=== PATIENT | male | born 1980 | race Caucasian/White ===

== ENCOUNTER 2021-07-23 05:31 | Emergency (ER) | payer OTHER, MEDICAID, MEDICARE, SELFPAY ==
--- NOTE | ~2021-07-23 | XR_ITS ---
EXAMINATION: CHEST 2 VIEWS pain . COMPARISON: No recent pertinent prior studies are available for comparison. TECHNIQUE: PA and lateral views of the chest obtained. FINDINGS: The lungs are well expanded. No focal infiltrate, effusion, edema, or pneumothorax. Cardiac and mediastinal silhouettes are within normal limits for technique. No acute bony abnormality seen XR/XR chest 1V IMPRESSION: No evidence of acute disease
--- NOTE | ~2021-07-23 | CT_ITS ---
EXAMINATION: CT HEAD WITHOUT CONTRAST CLINICAL INFORMATION: Headache COMPARISON: None TECHNIQUE: Contiguous axial imaging was performed from the skull base to vertex without intravenous administration of contrast. This CT examination was performed using dose optimization techniques as appropriate, variously including the following: *Automated exposure control *Adjustment of mA and/or kV according to patient size (this includes techniques or standardized protocols for targeted exams where dose is matched to indication/reason for exam; i.e. extremities or head) *Use of iterative reconstruction technique DLP: 621 mGy-cm FINDINGS: There is no evidence of acute intracranial hemorrhage or territorial infarction. No abnormal mass effect or midline shift is seen. Calderon to white matter differentiation is well preserved. No extra-axial fluid collections are identified. The ventricles are normal in size. There is no abnormal attenuation within the brain parenchyma. The osseous structures and soft tissues are normal. The mastoid air cells and visualized portions of the paranasal sinuses are well aerated. CT/CT head/brain wo con IMPRESSION: No acute intracranial pathology.
[2021-07-23 05:39] VITALS: BP 147/93; PULSE 108; RESP 18; TEMP 36.8; O2SAT 98; BMI 30.1
--- NOTE | 2021-07-23 05:43 | ECG_ITS ---
Test Reason : CHEST TIGHTNESS Blood Pressure : / mmHG Vent. Rate : 103 BPM Atrial Rate : 103 BPM P-R Int : 140 ms QRS Dur : 078 ms QT Int : 324 ms P-R-T Axes : 028 -20 021 degrees QTc Int : 424 ms Sinus tachycardia Nonspecific T wave abnormality Abnormal ECG No previous ECGs available Referred By: Generic ED Physician Electronically Signed By:FUNMILAYO BATRES
[2021-07-23 06:08] VITALS: BP 144/96; PULSE 101; RESP 20; TEMP 37.1; O2SAT 96
[2021-07-23 06:19] LABS: COVID-19 Test Negative (Negative); IDNOW Serial# 9DD0AD1C
--- NOTE | 2021-07-23 06:36 | ED_ITS ---
HPI - Headache General Chief Complaint: Headache Stated Complaint: Multiple complaints Time Seen by Provider: 07/23/21 06:20 Source: patient Mode of arrival: ambulatory Limitations: no limitations History of Present Illness MD elicited complaint: headache and other (chest tightness, chills) Pertinent past history: hypertension Onset (ago): day(s) (4) Onset description: gradually Location: diffuse Severity: moderate Quality & Timing: aching Exacerbating factors: none Relieving factors: nothing Context: occurred at rest Associated symptoms: chest pain Treatments prior to arrival: acetaminophen Related Data Previous Rx's Medication Instructions Recorded lisinopril 10 mg tablet 10 mg PO DAILY 90 Days #90 tab 07/12/21 citalopram 20 mg tablet 20 mg PO DAILY 90 Days #90 tab 07/21/21 hydrochlorothiazide 25 mg tablet 25 mg PO DAILY 90 Days #90 tab 07/21/21 hydroxyzine pamoate 25 mg capsule 25 mg PO DAILY 30 Days #30 cap 07/22/21 ondansetron 4 mg disintegrating 4 mg PO Q8H PRN #20 tab 07/23/21 tablet Allergies Allergy/AdvReac Type Severity Reaction Status Date / Time tramadol Allergy Unknown Unknown Verified 04/17/21 09:07 Review of Systems Review of Systems: Constitutional : No Fever, pos Chills, No Fatigue ENT/Mouth : No sore throat, No Rhinorrhea Eyes: No Eye Pain, No Swelling, No Redness Cardiovascular : pos Chest Pain, No SOB, No Dyspnea on Exertion Respiratory : No Cough, No Sputum Gastrointestinal : No Nausea, No Vomiting, No Diarrhea, No abdominal Pain Genitourinary : No Dysuria, No Urinary Frequency, No Hematuria, Musculoskeletal : No joint pain, No Myalgias, No Joint Swelling Skin : No Skin Lesions, No rash Neuro : No Weakness, No Numbness, No Dizziness, positive Headache Psych : No Anxiety/Panic, No Depression Heme/Lymph: No Bruising, No Bleeding,No Lymphadenopathy Endocrine : No Polyuria, No Polydipsia All other systems reviewed and are negative [facility] Past Medical History Attestation statement: The following information was validated with the patient. Medical History Anxiety Asthma Gout HTN (hypertension) Mild depression PTSD (post-traumatic stress disorder) Surgical History History of surgery Family History Family History Father Diabetes mellitus HTN (hypertension) Mother HTN (hypertension) Anxiety Sister HTN (hypertension) Brother Sleep apnea Maternal Grandmother History of heart attack Breast cancer Brain aneurysm Maternal Grandfather No problems noted. Paternal Grandfather No problems noted. Paternal Grandmother Diabetes mellitus CVD (cardiovascular disease) Social History Social History Alcohol intake: current Alcohol intake frequency: holidays/special occasions only Alcohol type: beer Patient Tobacco Use Status: Never used Tobacco Use of substances other than those prescribed or required for medical reasons: No Advance Directives: No Physical Exam Vital Signs: Vital Signs: Last Vital Signs Temp 98.7 F 07/23/21 06:08 Pulse 101 H 07/23/21 06:08 Resp 20 07/23/21 06:08 BP 144/96 H 07/23/21 06:08 Pulse Ox 96 07/23/21 06:08 Body Mass Index 30.1 Appearance: Alert. Oriented X3. No acute distress. Eyes: Pupils equal, round and reactive to light. ENT: Pharynx normal. Neck: Normal inspection. Neck supple. no meningeal signs CVS: Normal heart rate and rhythm. Pulses normal. Respiratory: No respiratory distress. Breath sounds normal. Abdomen: Soft and non-tender. Skin: Skin warm and dry. Normal skin color. Normal skin turgor. Extremities: No lower extremity edema. No calf ttp Neuro: Oriented X 3. No motor deficit. No sensory deficit. Course Course Course Narrative: negative workup stable VS feels much better MDM - Headache MDM Narrative Medical decision making narrative: 41 yo male with hx of anxiety, HTN comes in with 4 days of gradual headache, chills, chest pain overall not feeling well he is vaccinated. No AC therapy, no fevers, no meningeal signs at this time doubt SAH or COMPONENT LAB TECH infection could be sinusitis. Chest pain atypical but given age will need troponin and ddimer for tachycardia dispo per results and findings. Lab Data Result diagrams: 07/23/21 07:14 07/23/21 07:14 Labs: Lab Results 09/01/21 09/01/21 09/01/21 Range/Units 05:51 07:14 07:14 WBC 6.1 (4.8-10.8) X10*3/uL RBC 5.47 (4.60-5.80) X10*6/uL Hgb 16.1 (14.0-18.0) g/dl Hct 46.5 (42-52) % MCV 85.0 (80-98) fL MCH 29.4 (27.0-33.0) pg MCHC 34.6 (31.0-36.0) g/dl RDW 13.4 (11.0-16.0) % Plt Count 244 (160-400) X10*3/uL MPV 10.3 (9.4-12.4) fL Immature Gran % (Auto) 0.5 H (0.0-0.4) % Neut % (Auto) 55.6 (45-73) % Lymph % (Auto) 30.9 (20-40) % [facility] % (Auto) 10.2 (2-11) % Eos % (Auto) 2.1 (0-4) % Baso % (Auto) 0.7 (0-2) % Lymph # (Auto) 1.9 (1.2-4.9) X10*3/uL [facility] # (Auto) 0.6 (0.1-1.2) X10*3/uL Eos # (Auto) 0.1 (0.0-0.4) X10*3/uL Baso # (Auto) 0.0 (0.0-0.2) X10*3/uL Abs Immat Gran (auto) 0.03 (0.00-0.03) X10*3/uL Absolute Neuts (auto) 3.4 (2.0-8.3) X10*3/uL Absolute Nucleated RBC 0.000 (0.0-0.012) X10*3/uL Nucleated RBC % (auto) 0.0 (0.0-0.2) /100WBC D-Dimer < 200 NG/ML Sodium (135-145) mmol/L Potassium (3.3-5.1) mmol/L Chloride (96-108) mmol/L Carbon Dioxide (22-29) mmol/L Anion Gap (12-20) BUN (9-16) mg/dL Creatinine (0.5-1.4) mg/dL Estim Creat Clear Calc Estimated GFR Random Glucose (60-115) mg/dL Calcium (8.4-10.2) mg/dL Magnesium (1.6-2.6) mg/dL Total Bilirubin (0.0-1.0) mg/dL Direct Bilirubin (0.0-0.5) mg/dL AST (5-37) U/L ALT (0-40) U/L Alkaline Phosphatase (39-117) U/L Troponin I High Sens (<3.5-35.0) ng/L Total Protein (6.5-8.0) g/dL Albumin (3.5-5.0) g/dL COVID-19 ([facility]) Negative (Negative) COVID-19 Clin Com See Note 07/23/21 07/23/21 Range/Units 07:14 07:14 WBC (4.8-10.8) X10*3/uL RBC (4.60-5.80) X10*6/uL Hgb (14.0-18.0) g/dl Hct (42-52) % MCV (80-98) fL MCH (27.0-33.0) pg MCHC (31.0-36.0) g/dl RDW (11.0-16.0) % Plt Count (160-400) X10*3/uL MPV (9.4-12.4) fL Immature Gran % (Auto) (0.0-0.4) % Neut % (Auto) (45-73) % Lymph % (Auto) (20-40) % [facility] % (Auto) (2-11) % Eos % (Auto) (0-4) % Baso % (Auto) (0-2) % Lymph # (Auto) (1.2-4.9) X10*3/uL [facility] # (Auto) (0.1-1.2) X10*3/uL Eos # (Auto) (0.0-0.4) X10*3/uL Baso # (Auto) (0.0-0.2) X10*3/uL Abs Immat Gran (auto) (0.00-0.03) X10*3/uL Absolute Neuts (auto) (2.0-8.3) X10*3/uL Absolute Nucleated RBC (0.0-0.012) X10*3/uL Nucleated RBC % (auto) (0.0-0.2) /100WBC D-Dimer NG/ML Sodium 137 (135-145) mmol/L Potassium 4.4 (3.3-5.1) mmol/L Chloride 102 (96-108) mmol/L Carbon Dioxide 25 (22-29) mmol/L Anion Gap 14 (12-20) BUN 11 (9-16) mg/dL Creatinine 0.96 (0.5-1.4) mg/dL Estim Creat Clear Calc 116.1 Estimated GFR > 60 Random Glucose 114 (60-115) mg/dL Calcium 9.4 (8.4-10.2) mg/dL Magnesium 2.3 (1.6-2.6) mg/dL Total Bilirubin 0.9 (0.0-1.0) mg/dL Direct Bilirubin 0.3 (0.0-0.5) mg/dL AST 37 (5-37) U/L ALT 45 H (0-40) U/L Alkaline Phosphatase 94 (39-117) U/L Troponin I High Sens < 3.5 (<3.5-35.0) ng/L Total Protein 8.0 (6.5-8.0) g/dL Albumin 4.8 (3.5-5.0) g/dL COVID-19 ([facility]) (Negative) COVID-19 Clin Com ECG Data Attestation: I personally reviewed and interpreted this ECG as follows: ECG interpretation date: 07/23/21 ECG interpretation time: 07:01 Interpretation: Rate: 103 Rhythm: sinus tachycardia [place]: left Normal P waves. Normal [place]. Normal QRS complex. ST T wave : normal no IVY qTC: normal prior studies: no acute ischemia The study has been interpreted contemporaneously by me. . Discharge Plan Discharge Clinical Impression: Tension headache Chest pain Qualifiers: Chest pain type: unspecified Qualified Code(s): R07.9 - Chest pain, unspecified Patient Disposition: Home, Self-Care Instructions: Chest Pain (ED), Acute Headache (ED) Additional Instructions: return to ED for any worsening symptoms or concerns negative EKG, chest xray, normal heart blood tests and negative blood clot test, COVID negative CT head negative will call you if result of flu RSV covid comes back positive Prescriptions: New ondansetron 4 mg tablet,disintegrating 4 mg PO Q8H PRN (Reason: nausea and vomiting) Qty: 20 RF: 0 No Action lisinopril 10 mg tablet 10 mg PO DAILY 90 Days Qty: 90 RF: 0 citalopram 20 mg tablet 20 mg PO DAILY 90 Days Qty: 90 RF: 0 hydrochlorothiazide 25 mg tablet 25 mg PO DAILY 90 Days Qty: 90 RF: 0 hydroxyzine pamoate 25 mg capsule 25 mg PO DAILY 30 Days Qty: 30 RF: 3 Referrals: Benja Tomlinson, [facility]EW[facility] [Primary Care Provider] - 2 days (if not better) Stand Alone Forms: Work/School Release
[2021-07-23] MEDS: 0.9 % Sodium Chloride 1,000 ML 999 ML IVCONT (07:17)
[2021-07-23] MEDS: ondansetron HCL 4 MG/2 ML VIAL IVPUSH (07:18)
[2021-07-23] MEDS: Ketorolac Tromethamine 15 MG/ML VIAL IVPUSH (07:19)
[2021-07-23 07:20] LABS: MANUAL DIFF FLAG NO
[2021-07-23 07:28] LABS: Basophils Percent Auto 0.7 % (0-2); Eosinophils Absolute Auto 0.1 X10*3/uL (0.0-0.4); Eosinophils Percent Auto 2.1 % (0-4); Hematocrit 46.5 % (42-52); Hemoglobin 16.1 g/dl (14.0-18.0); Imm Gran Abs Auto 0.03 X10*3/uL (0.00-0.03); Imm Gran Pct Auto 0.5 % (0.0-0.4); Lymphocytes Absolute Auto 1.9 X10*3/uL (1.2-4.9); Lymphocytes Percent Auto 30.9 % (20-40); Mean Corpuscular HGB Conc 34.6 g/dl (31.0-36.0); Mean Corpuscular Hemoglobin 29.4 pg (27.0-33.0); Mean Platelet Volume 10.3 fL (9.4-12.4); Monocytes Absolute Auto 0.6 X10*3/uL (0.1-1.2); Monocytes Percent Auto 10.2 % (2-11); Neutrophils Absolute Auto 3.4 X10*3/uL (2.0-8.3); Neutrophils Percent Auto 55.6 % (45-73); Platelet Count 244 X10*3/uL (160-400); Red Blood Count 5.47 X10*6/uL (4.60-5.80); Red Cell Distribution Width 13.4 % (11.0-16.0); White Blood Count 6.1 X10*3/uL (4.8-10.8)
[2021-07-23 07:31] LABS: D Dimer < 200 NG/ML
[2021-07-23 07:48] LABS: Alanine Aminotransferase 45 U/L (0-40); Albumin Level 4.8 g/dL (3.5-5.0); Alkaline Phosphatase 94 U/L (39-117); Anion Gap 14 (12-20); Aspartate Amino Transferase 37 U/L (5-37); Bilirubin Direct 0.3 mg/dL (0.0-0.5); Bilirubin Total 0.9 mg/dL (0.0-1.0); Blood Urea Nitrogen 11 mg/dL (9-16); Calcium 9.4 mg/dL (8.4-10.2); Carbon Dioxide 25 mmol/L (22-29); Chloride 102 mmol/L (96-108); Creatinine Clr Calc Pharmacy 116.1; Estimated Glomerular Filt Rate > 60; Glucose Random 114 mg/dL (60-115); Magnesium 2.3 mg/dL (1.6-2.6); Potassium 4.4 mmol/L (3.3-5.1); Sodium 137 mmol/L (135-145); Troponin-I High Sensitivity < 3.5 ng/L (<3.5-35.0)
[2021-07-23 08:01] LABS: SARS COV2 PCR INHOUSE NO RESULT (Negative)
[2021-07-23 08:19] LABS: Influenza A PCR Indeterminate (Negative); Influenza B PCR Indeterminate (Negative); Resp Syncy Virus RNA Qual PCR Indeterminate (Negative)
[2021-07-23 10:39] LABS: Influenza A PCR NEGATIVE (Negative); Influenza B PCR NEGATIVE (Negative); Resp Syncy Virus RNA Qual PCR NEGATIVE (Negative); SARS COV2 PCR INHOUSE NEGATIVE (Negative)
== END 2021-07-23 08:39 | disposition home or self-care (01) ==
PROVIDERS: Emergency Provider Emergency Medicine; PCP Nurse Practitioner Family
DX: G44.209 Tension-type headache, unspecified, not intractable (principal); R07.9 Chest pain, unspecified; Z20.822 Contact with and (suspected) exposure to COVID-19; I10 Essential (primary) hypertension
CPT/HCPCS: 0241U; 36415; 70450; 71045; 80048; 80076; 83735; 84484; 85025; 85379; 87635; 93005; 96361; 96374; 96375; 99284; 99285; J1885; J2405

== ENCOUNTER 2021-11-17 14:54 | Outpatient (REF) | payer MEDICARE, OTHER, MEDICAID, SELFPAY ==
--- NOTE | ~2021-11-17 | XR_ITS ---
EXAMINATION: XR CHEST CLINICAL INFORMATION: Unspecified asthma, uncomplicated. COMPARISON: Chest radiograph 07/23/2021. TECHNIQUE: 2 views of the chest were obtained. FINDINGS: Normal appearance of the cardiomediastinal structures. No effusions or pneumothoraces. Lungs clear. Normal pattern of pulmonary vasculature. No evidence of central peribronchial wall thickening. Minimal multilevel anterior endplate osteophytosis of the thoracic spine. XR/XR chest 2V IMPRESSION: *No cardiopulmonary abnormalities identified. Lungs clear.
[2021-11-17 16:55] LABS: Alanine Aminotransferase 58 U/L (0-40); Albumin Level 4.7 g/dL (3.5-5.0); Alkaline Phosphatase 112 U/L (39-117); Anion Gap 13 (12-20); Aspartate Amino Transferase 36 U/L (5-37); Bilirubin Total 0.6 mg/dL (0.0-1.0); Blood Urea Nitrogen 11 mg/dL (9-16); Calcium 9.9 mg/dL (8.4-10.2); Carbon Dioxide 29 mmol/L (22-29); Chloride 102 mmol/L (96-108); Cholesterol 275 mg/dL; Estimated Glomerular Filt Rate > 60; Glucose Fasting 97 mg/dL (60-99); HDL Cholesterol 56 mg/dL; LDL Cholesterol Calculated 141 mg/dl; Sodium 139 mmol/L (135-145); Total Protein 7.7 g/dL (6.5-8.0); Triglycerides 391 mg/dL; Uric Acid 8.8 mg/dL (3.4-7.0)
== END 2021-11-17 14:55 | disposition home or self-care (01) ==
LOC: HO.HMGCLDS 14:54
PROVIDERS: Absent Provider Internal Medicine; PCP Nurse Practitioner Family; Visit Provider Nurse Practitioner Family
DX: J45.909 Unspecified asthma, uncomplicated (principal); I10 Essential (primary) hypertension; F41.9 Anxiety disorder, unspecified; M10.9 Gout, unspecified
CPT/HCPCS: 36415; 71046; 80053; 80061; 84443; 84550

== ENCOUNTER 2021-12-12 10:12 | Outpatient (REF) | payer MEDICARE, MEDICAID, SELFPAY ==
--- NOTE | ~2021-12-12 | US_ITS ---
EXAMINATION: US ABDOMEN COMPLETE CLINICAL INFORMATION: Abnormal levels of other serum enzymes. COMPARISON: None TECHNIQUE: Real-time imaging of the abdominal viscera. FINDINGS: PANCREAS: Normal. ABDOMINAL AORTA: The proximal, mid, and distal segments are normal in caliber. INFERIOR VENA CAVA: Visualized portions are normal. LIVER: The liver is normal in size. The liver contour is normal. There is increased liver echogenicity. No focal hepatic lesion. There is no intrahepatic biliary duct dilatation seen. GALLBLADDER: Normal. The gallbladder is physiologically distended without evidence of stones, sludge, polyps, wall thickening or pericholecystic fluid. COMMON BILE DUCT: Normal in caliber measuring 0.26 cm in diameter. RIGHT KIDNEY: Normal. No hydronephrosis. No renal calculi or focal parenchymal lesions. The kidney measures 10.2 cm in maximum dimension. LEFT KIDNEY: There is a complex cyst midpole measuring 2.7 x 2.7 x 2.2 cm. No hydronephrosis or renal calculi. The kidney measures 11.7 cm in maximum dimension. SPLEEN: Normal. The spleen measures 10.8 cm in maximum dimension. FREE FLUID: None. US/US abdomen complete IMPRESSION: 1. Mild hepatic steatosis. No focal lesion seen. 2. Complex Bosniak type II cyst, midpole left kidney.
== END 2021-12-12 10:13 | disposition home or self-care (01) ==
LOC: HO.US 10:12
PROVIDERS: PCP Nurse Practitioner Family; Visit Provider Nurse Practitioner Family
DX: R74.8 Abnormal levels of other serum enzymes (principal)
CPT/HCPCS: 76700

== ENCOUNTER → 2022-02-26 13:13 | Outpatient (BNVA) | payer MEDICAID, SELFPAY | PROVIDERS: PCP Nurse Practitioner Family | DX: N28.1 Cyst of kidney, acquired (principal) | CPT/HCPCS: 99202 ==

== ENCOUNTER 2022-05-02 20:35 | Emergency (ER) | payer MEDICAID, SELFPAY ==
[2022-05-02 21:05] VITALS: BP 190/100; PULSE 104; O2SAT 99
[2022-05-02 22:17] VITALS: BP 121/87; PULSE 83; RESP 17; TEMP 36.9; O2SAT 99; BMI 29.0
--- NOTE | 2022-05-02 22:21 | ED.EXTPRO ---
HPI - Extremity Problem General Chief complaint: General Medical Stated complaint: gout flare up Time Seen by Provider: 05/02/22 22:21 Source: patient Mode of arrival: ambulatory Limitations: no limitations History of Present Illness HPI Narrative: Patient with History of gout been having pain in the left ankle for last 1 week now has pain in left knee last episode flare up of gout was about 5 months ago not taking any medication. No other significant medical history no fever no chills no trauma Related Data Previous Rx's Medication Instructions Recorded lisinopril 10 mg tablet 10 mg PO DAILY 90 days #90 tabs 07/12/21 ondansetron 4 mg disintegrating 4 mg PO Q8H PRN nausea and 07/23/21 tablet vomiting #20 tabs atorvastatin 20 mg tablet 20 mg PO BEDTIME 90 days #90 tabs 11/17/21 azithromycin 250 mg tablet See Rx Instructions PO .COMPLEX #6 11/17/21 tabs citalopram 20 mg tablet 20 mg PO DAILY 90 days #90 tabs 02/07/22 hydroxyzine pamoate 25 mg capsule 25 mg PO DAILY 30 days #30 caps 02/07/22 hydrochlorothiazide 25 mg tablet 25 mg PO DAILY 90 days #90 tabs 02/14/22 fluticasone 250 mcg-salmeterol 50 1 inh inhalation BID #60 ea 02/25/22 mcg/dose blistr powdr for inhalation (Advair Diskus) albuterol sulfate 90 mcg/actuation 1 inh inhalation Q4-6H PRN 03/01/22 breath activated powder shortness of breath or wheezing #1 inhaler,sensor ea albuterol sulfate 90 mcg/actuation 1 inh inhalation QID PRN shortness 03/02/22 aerosol inhaler (Ventolin HFA) of breath or wheezing 30 days #8.5 grams colchicine 0.6 mg tablet 0.6 mg PO DAILY #30 tabs 05/03/22 indomethacin 50 mg capsule 50 mg PO QID PRN pain (scale score 05/03/22 4-6) #30 caps prednisone 20 mg tablet 40 mg PO DAILY #10 tabs 05/03/22 Allergies Allergy/AdvReac Type Severity Reaction Status Date / Time tramadol Allergy Unknown Unknown Verified 05/02/22 22:23 Review of Systems Review of Systems: Yes all other systems are reviewed and are negative PMFSH Past Medical History Medical History Anxiety Asthma Gout HTN (hypertension) Mild depression PTSD (post-traumatic stress disorder) Surgical History History of surgery Family History Family History Father Diabetes mellitus HTN (hypertension) Mother HTN (hypertension) Anxiety Sister HTN (hypertension) Brother Sleep apnea Maternal Grandmother History of heart attack Breast cancer Brain aneurysm Maternal Grandfather No problems noted. Paternal Grandfather No problems noted. Paternal Grandmother Diabetes mellitus CVD (cardiovascular disease) Social History Social History Alcohol intake: current Alcohol intake frequency: holidays/special occasions only Alcohol type: beer Patient Tobacco Use Status: Never used Tobacco Advance Directives: No Physical Exam Vital Signs: Vital Signs: Last Vital Signs Temp 98.4 F 05/02/22 22:17 Pulse 83 05/02/22 22:17 Resp 17 05/02/22 22:17 BP 121/87 05/02/22 22:17 Pulse Ox 99 05/02/22 22:17 O2 Del Method 05/02/22 22:17 BMI result Body Mass Index 29.0 Appearance: Alert. Oriented X3. No acute distress. ENT: Pharynx normal. Oral Mucosa moist Neck: Normal inspection. Neck supple. CVS: Normal heart rate and rhythm. Pulses normal. Respiratory: No respiratory distress. Equal air entry bilateral, no wheezing/rales/rhonchi Abdomen: Soft and nontender. Bowel sounds are present, Skin: Skin warm and dry. Normal skin color. Normal skin turgor. Extremities: No lower extremity edema. No calf tenderness tenderness left ankle and left knee no significant effusion good range of movement Neuro: Oriented X 3. No motor deficit. No sensory deficit.No cerebellar signs , cranial nerves II-XII intact MDM - Extremity (Nontraumatic) MDM Narrative Medical decision making narrative: Patient responded to colchicine and prednisone feeling much better will discharge patient home on colchicine prednisone and Indocin Discharge Plan Discharge Clinical Impression: Gout attack Patient Disposition: Home, Self-Care Instructions: Gout (ED) Additional Instructions: Take medication as prescribed Follow-up with PCP Diet as advised Prescriptions: New prednisone 20 mg tablet 40 mg PO DAILY Qty: 10 0RF colchicine 0.6 mg tablet 0.6 mg PO DAILY Qty: 30 0RF indomethacin 50 mg capsule 50 mg PO QID PRN (Reason: pain (scale score 4-6)) Qty: 30 0RF Rx Instructions: administer with food or milk No Action lisinopril 10 mg tablet 10 mg PO DAILY 90 Days Qty: 90 0RF atorvastatin 20 mg tablet 20 mg PO BEDTIME 90 Days Qty: 90 1RF citalopram 20 mg tablet 20 mg PO DAILY 90 Days Qty: 90 0RF hydroxyzine pamoate 25 mg capsule 25 mg PO DAILY 30 Days Qty: 30 3RF hydrochlorothiazide 25 mg tablet 25 mg PO DAILY 90 Days Qty: 90 0RF fluticasone propion-salmeterol [Advair Diskus] 250-50 mcg/dose blister with device 1 inh inhalation BID Qty: 60 1RF albuterol sulfate 90 mcg/actuation aero powdr breath act w/sensor 1 inh inhalation Q4-6H PRN (Reason: shortness of breath or wheezing) Qty: 1 0RF albuterol sulfate [Ventolin HFA] 90 mcg/actuation HFA aerosol inhaler 1 inh inhalation QID PRN (Reason: shortness of breath or wheezing) 30 Days Qty: 8.5 2RF ondansetron 4 mg tablet,disintegrating 4 mg PO Q8H PRN (Reason: nausea and vomiting) Qty: 20 0RF azithromycin 250 mg tablet See Rx Instructions PO .COMPLEX Qty: 6 0RF Rx Instructions: take 500 mg today (day 1), then 250 mg for 4 days (days 2-5) PO Interventions: ED Discharge Assessment Last Done: 05/03/22 00:24 Discharge Date/Time: 05/03/22 00:26
[2022-05-02] MEDS: Colchicine 0.6 MG TABLET 1.2 MG PO (23:02)
[2022-05-02] MEDS: predniSONE 20 MG TABLET 60 MG PO (23:02)
== END 2022-05-03 00:26 | disposition home or self-care (01) ==
PROVIDERS: Emergency Provider Internal Medicine; PCP Nurse Practitioner Family
DX: M10.9 Gout, unspecified (principal); I10 Essential (primary) hypertension; J45.909 Unspecified asthma, uncomplicated
CPT/HCPCS: 99283

== ENCOUNTER 2022-06-23 15:33 | Emergency (ER) | payer MEDICAID, SELFPAY ==
--- NOTE | ~2022-06-23 | XR_ITS ---
EXAMINATION: LEFT TIB-FIB, LEFT ANKLE CLINICAL INFORMATION: Ankle swelling with rash and question of osteomyelitis COMPARISON: None TECHNIQUE: 2 views tibia and fibula, 3 views ankle FINDINGS: Tibia and fibula appear normal. The ankle mortise is stable. No ankle fracture or dislocation is seen. A small ankle joint effusion may be present. A dorsal talar spur is present (a talar beak). Well-corticated bony densities seen inferior to medial malleolus probably related to remote trauma. No definite acute ankle fracture is seen. Sagittal radiolucency crosses in a slightly oblique fashion of the distal fibula on one view only. No cortical break is visualized XR/XR tibia fibula LT 2V IMPRESSION: No definite evidence of acute fracture. There is soft tissue swelling and a small ankle effusion present.. Correlate with point tenderness over lateral malleolus although fracture is felt to be unlikely.
--- NOTE | ~2022-06-23 | XR_ITS ---
EXAMINATION: LEFT TIB-FIB, LEFT ANKLE CLINICAL INFORMATION: Ankle swelling with rash and question of osteomyelitis COMPARISON: None TECHNIQUE: 2 views tibia and fibula, 3 views ankle FINDINGS: Tibia and fibula appear normal. The ankle mortise is stable. No ankle fracture or dislocation is seen. A small ankle joint effusion may be present. A dorsal talar spur is present (a talar beak). Well-corticated bony densities seen inferior to medial malleolus probably related to remote trauma. No definite acute ankle fracture is seen. Sagittal radiolucency crosses in a slightly oblique fashion of the distal fibula on one view only. No cortical break is visualized XR/XR ankle LT min 3V IMPRESSION: No definite evidence of acute fracture. There is soft tissue swelling and a small ankle effusion present.. Correlate with point tenderness over lateral malleolus although fracture is felt to be unlikely.
--- NOTE | ~2022-06-23 | US_ITS ---
EXAMINATION: US VENOUS ULTRASOUND WITH DOPPLER LOWER EXTREMITY, LEFT CLINICAL INFORMATION: Edema. COMPARISON: None TECHNIQUE: Ultrasound of the deep veins is performed from the hip to the calf with compression sonography and color and pulse Doppler assessment. Spectral analysis with color-flow imaging is performed. FINDINGS: There is normal venous compression and respiratory variation and augmented flow. The visualized common femoral vein, superficial femoral vein, profunda femoral vein, popliteal vein, and the trifurcation region shows no evidence of deep venous thrombosis. There is no significant popliteal fossa cyst. Morphologically normal-appearing lymph nodes in the groin with fatty sophie. There is fluid and edema around the ankle. If the patient's symptoms persist, followup ultrasound in 5 days 7 days might be of value to exclude proximal propagation from a non-visualized calf vein. US/US venous duplex LE LT IMPRESSION: No DVT demonstrated in the left lower extremity.
[2022-06-23 17:49] VITALS: BP 160/118; PULSE 83; RESP 18; TEMP 36.2; O2SAT 99; BMI 29.4
[2022-06-23 20:42] VITALS: BP 165/116; PULSE 83; RESP 16; TEMP 36.6; O2SAT 98
[2022-06-23 22:06] LABS: MANUAL DIFF FLAG NO
[2022-06-23 22:07] LABS: Basophils Percent Auto 0.3 % (0-2); Eosinophils Absolute Auto 0.3 X10*3/uL (0.0-0.4); Eosinophils Percent Auto 4.9 % (0-4); Hematocrit 39.6 % (42.0-52.0); Hemoglobin 13.4 g/dl (14.0-18.0); Imm Gran Abs Auto 0.04 X10*3/uL (0.00-0.03); Imm Gran Pct Auto 0.7 % (0.0-0.4); Lymphocytes Absolute Auto 2.1 X10*3/uL (1.2-4.9); Lymphocytes Percent Auto 34.6 % (20-40); Mean Corpuscular HGB Conc 33.8 g/dl (31.0-36.0); Mean Corpuscular Hemoglobin 28.7 pg (27.0-33.0); Mean Corpuscular Volume 84.8 fL (80.0-98.0); Mean Platelet Volume 9.6 fL (9.4-12.4); Monocytes Absolute Auto 0.8 X10*3/uL (0.1-1.2); Neutrophils Absolute Auto 2.8 x10*3/uL (2.0-8.3); Neutrophils Percent Auto 46.5 % (45-73); Platelet Count 240 X10*3/uL (160-400); Red Blood Count 4.67 X10*6/uL (4.60-5.80); Red Cell Distribution Width 13.3 % (11.0-16.0); White Blood Count 6.1 X10*3/uL (4.8-10.8)
[2022-06-23 22:17] LABS: Prothrombin Time 11.5 SEC (10.0-13.1)
[2022-06-23 22:20] LABS: Partial Thromboplastin Time 33.6 SEC (26.0-36.4)
[2022-06-23 22:23] LABS: Alanine Aminotransferase 45 U/L (0-40); Albumin Level 4.2 g/dL (3.5-5.0); Alkaline Phosphatase 81 U/L (39-117); Anion Gap 15 (12-20); Aspartate Amino Transferase 25 U/L (5-37); Bilirubin Total 0.5 mg/dL (0.0-1.0); Blood Urea Nitrogen 19 mg/dL (9-16); C Reactive Protein 3.68 mg/dL (< or = 0.50); Calcium 8.8 mg/dL (8.4-10.2); Carbon Dioxide 23 mmol/L (22-29); Chloride 103 mmol/L (96-108); Creatinine Clr Calc Pharmacy 125.4; Estimated Glomerular Filt Rate > 60; Glucose Random 96 mg/dL (60-115); Potassium 4.1 mmol/L (3.3-5.1); Sodium 137 mmol/L (135-145); Total Protein 6.9 g/dL (6.5-8.0); Uric Acid 7.7 mg/dL (3.4-7.0)
[2022-06-23 23:09] LABS: Erythrocyte Sedimentation Rate 13 MM/HR (0-15)
--- NOTE | 2022-06-23 23:47 | ED_ITS ---
HPI - Extremity Problem General Chief complaint: Extremity Problem Stated complaint: left ankle swollen rash on both ankles Time Seen by Provider: 06/23/22 20:45 Source: patient Mode of arrival: ambulatory Limitations: no limitations History of Present Illness HPI Narrative: 42-year-old male with pmh of Gout presents to ED for left ankle swelling for 1 weeks and than since yesterday weird rash on left leg and now right leg after since last night. patient states only thing he did yesterday was go to the beach. Patient denies any calf pain, itchiness or rash being painful, chest pain, shortness of breath. Patient states and being without his gout medication this week. Related Data Previous Rx's Medication Instructions Recorded ondansetron 4 mg disintegrating 4 mg PO Q8H PRN nausea and 07/23/21 tablet vomiting #20 tabs atorvastatin 20 mg tablet 20 mg PO BEDTIME 90 days #90 tabs 11/17/21 azithromycin 250 mg tablet See Rx Instructions PO .COMPLEX #6 11/17/21 tabs citalopram 20 mg tablet 20 mg PO DAILY 90 days #90 tabs 02/07/22 hydroxyzine pamoate 25 mg capsule 25 mg PO DAILY 30 days #30 caps 02/07/22 hydrochlorothiazide 25 mg tablet 25 mg PO DAILY 90 days #90 tabs 02/14/22 fluticasone 250 mcg-salmeterol 50 1 inh inhalation BID #60 ea 02/25/22 mcg/dose blistr powdr for inhalation (Advair Diskus) albuterol sulfate 90 mcg/actuation 1 inh inhalation Q4-6H PRN 03/01/22 breath activated powder shortness of breath or wheezing #1 inhaler,sensor ea albuterol sulfate 90 mcg/actuation 1 inh inhalation QID PRN shortness 03/02/22 aerosol inhaler (Ventolin HFA) of breath or wheezing 30 days #8.5 grams colchicine 0.6 mg tablet 0.6 mg PO DAILY #30 tabs 05/03/22 indomethacin 50 mg capsule 50 mg PO QID PRN pain (scale score 05/03/22 4-6) #30 caps lisinopril 10 mg tablet 10 mg PO DAILY 90 days #90 tabs 05/03/22 prednisone 20 mg tablet 40 mg PO DAILY #10 tabs 05/03/22 allopurinol 100 mg tablet 100 mg PO DAILY 10 days #10 tabs 08/03/22 indomethacin 50 mg capsule 50 mg PO TID 7 days #21 caps 06/24/22 prednisone 20 mg tablet 40 mg PO DAILY 5 days #10 tabs 06/24/22 Allergies Allergy/AdvReac Type Severity Reaction Status Date / Time tramadol Allergy Unknown Unknown Verified 06/23/22 17:49 Review of Systems Review of Systems: Left ankle swelling for 1 week. Left leg or right leg rash. Yes all other systems are reviewed and are negative [facility] Past Medical History Medical History Anxiety Asthma Gout HTN (hypertension) Mild depression PTSD (post-traumatic stress disorder) Surgical History History of surgery Family History Family History Father Diabetes mellitus HTN (hypertension) Mother HTN (hypertension) Anxiety Sister HTN (hypertension) Brother Sleep apnea Maternal Grandmother History of heart attack Breast cancer Brain aneurysm Maternal Grandfather No problems noted. Paternal Grandfather No problems noted. Paternal Grandmother Diabetes mellitus CVD (cardiovascular disease) Social History Social History Alcohol intake: current Alcohol intake frequency: holidays/special occasions only Alcohol type: beer Patient Tobacco Use Status: Never used Tobacco Advance Directives: No Advance Directives Information Provided: No Physical Exam Vital Signs: Vital Signs: Last Vital Signs Temp 97.8 F 06/23/22 20:42 Pulse 83 06/23/22 20:42 Resp 16 06/23/22 20:42 BP 165/116 H 06/23/22 20:42 Pulse Ox 98 06/23/22 20:42 O2 Del Method 06/23/22 20:42 BMI result Body Mass Index 29.4 Const: General: cooperative, healthy appearing, comfortable, no acute distress, well developed, alert, awake and Physically active HEENT: Head: Yes normal to inspection, Yes No palpable skull fracture present, Yes normocephalic, Yes atraumatic and No abrasion Eyes: General: appearance normal, both eyes and all related structures Neck: Neck: Yes normal visual inspection, Yes full ROM, Yes no lymphadenop athy, Yes no meningeal signs, Yes trachea midline, Yes supple, No anterior neck swelling and No tender Chest: Chest palpation & inspection: normal inspection of the chest and normal palpation of entire chest wall Resp: Effort & Inspection: normal respiratory effort and able to speak in complete sentences Auscultation: clear to auscultation bilaterally Cardio: Jugular venous distension: no JVD Heart sounds: S1 normal heart sound present and S2 normal heart sound present GI: Inspection: Yes normal to inspection and No abdominal wall ecchymosis Palpation (GI): Soft to palpation, not firm, nontender, no guarding and not rigid : General: No CVA tenderness and Yes no CVA tenderness Back/Spine/Pelvis: Back: no CVA tenderness, No CVA tenderness and No back tenderness Skin: Other: petechiae/purpura rash on both legs Neuro: General: no meningeal signs Extrem: Other: Left Lower extremity: Petechia/Pupura Rash that is normal temperaturs. negative for bilsters. posiive for left ankle swelling. negative for leg swelling/calf tenerness. Motor/neuro/vascular exam of lower extremity intact. Right lower Extremity: Also postive for developing petechiae/purpura rash. negative for any swelilng. Molar/nose/vascular exam of lower extremity intact. Psych: Appearance: grossly normal, well kempt and not disheveled Course Course Course Narrative: Due to petechia per per/rash of lower extremities will do basic labs to make sure there is no low platelets or severe anemia. Ultrasound done of left lower extremity demonstrated no DVT although most likely ankle swelling due to gout. Uric acid ordered. Left lower extremity x-rays ordered. Patient states history of gout and left ankle in the past. Reevaluation(s) Reevaluation #1: ESR negative. White blood cell count normal. Lower extremity ultrasound negative for DVT or fractures. Left lower extremity/ankle negative for for warmth. Not suspecting septic joint. Platelets normal. Coags normal. Slight drop in hemoglobin/hematocrit but that is over 1 year. Case and discussed with Dr. Cohen who agrees this may be some vasculitis. Patient form to follow-up primary care provider. Patient given treatment for gout. Discussed with patient to control his blood pressure and complaint with his meds. patient informed follow up with his pCP for better blood pressure control. Time: 12:18 MDM - Extremity (Nontraumatic) MDM Narrative Medical decision making narrative: Vasculitis gout Lab Data Result diagrams: 06/23/22 22:01 06/23/22 22:01 Labs: Lab Results 06/23/22 06/23/22 06/23/22 Range/Units 22:01 22:01 22:01 WBC 6.1 (4.8-10.8) X10*3/uL RBC 4.67 (4.60-5.80) X10*6/uL Hgb 13.4 L (14.0-18.0) g/dl Hct 39.6 L (42.0-52.0) % MCV 84.8 (80.0-98.0) fL MCH 28.7 (27.0-33.0) pg MCHC 33.8 (31.0-36.0) g/dl RDW 13.3 (11.0-16.0) % Plt Count 240 (160-400) X10*3/uL MPV 9.6 (9.4-12.4) fL Immature Gran % (Auto) 0.7 H (0.0-0.4) % Neut % (Auto) 46.5 (45-73) % Lymph % (Auto) 34.6 (20-40) % [place] % (Auto) 13.0 H (2-11) % Eos % (Auto) 4.9 H (0-4) % Baso % (Auto) 0.3 (0-2) % Lymph # (Auto) 2.1 (1.2-4.9) X10*3/uL [place] # (Auto) 0.8 (0.1-1.2) X10*3/uL Eos # (Auto) 0.3 (0.0-0.4) X10*3/uL Baso # (Auto) 0.0 (0.0-0.2) X10*3/uL Abs Immat Gran (auto) 0.04 H (0.00-0.03) X10*3/uL Absolute Neuts (auto) 2.8 (2.0-8.3) x10*3/uL Absolute Nucleated RBC 0.000 (0.0-0.012) X10*3/uL Nucleated RBC % (auto) 0.0 (0.0-0.2) /100WBC ESR 13 (0-15) MM/HR PT 11.5 (10.0-13.1) SEC INR 1.0 (0.9-1.1) APTT 33.6 (26.0-36.4) SEC Sodium (135-145) mmol/L Potassium (3.3-5.1) mmol/L Chloride (96-108) mmol/L Carbon Dioxide (22-29) mmol/L Anion Gap (12-20) BUN (9-16) mg/dL Creatinine (0.5-1.4) mg/dL Estim Creat Clear Calc Estimated GFR Random Glucose (60-115) mg/dL Uric Acid (3.4-7.0) mg/dL Calcium (8.4-10.2) mg/dL Total Bilirubin (0.0-1.0) mg/dL AST (5-37) U/L ALT (0-40) U/L Alkaline Phosphatase (39-117) U/L C-Reactive Protein (< or = 0.50) mg/dL Total Protein (6.5-8.0) g/dL Albumin (3.5-5.0) g/dL 06/23/22 Range/Units 22:01 WBC (4.8-10.8) X10*3/uL RBC (4.60-5.80) X10*6/uL Hgb (14.0-18.0) g/dl Hct (42.0-52.0) % MCV (80.0-98.0) fL MCH (27.0-33.0) pg MCHC (31.0-36.0) g/dl RDW (11.0-16.0) % Plt Count (160-400) X10*3/uL MPV (9.4-12.4) fL Immature Gran % (Auto) (0.0-0.4) % Neut % (Auto) (45-73) % Lymph % (Auto) (20-40) % [place] % (Auto) (2-11) % Eos % (Auto) (0-4) % Baso % (Auto) (0-2) % Lymph # (Auto) (1.2-4.9) X10*3/uL [place] # (Auto) (0.1-1.2) X10*3/uL Eos # (Auto) (0.0-0.4) X10*3/uL Baso # (Auto) (0.0-0.2) X10*3/uL Abs Immat Gran (auto) (0.00-0.03) X10*3/uL Absolute Neuts (auto) (2.0-8.3) x10*3/uL Absolute Nucleated RBC (0.0-0.012) X10*3/uL Nucleated RBC % (auto) (0.0-0.2) /100WBC ESR (0-15) MM/HR PT (10.0-13.1) SEC INR (0.9-1.1) APTT (26.0-36.4) SEC Sodium 137 (135-145) mmol/L Potassium 4.1 (3.3-5.1) mmol/L Chloride 103 (96-108) mmol/L Carbon Dioxide 23 (22-29) mmol/L Anion Gap 15 (12-20) BUN 19 H D (9-16) mg/dL Creatinine 0.87 (0.5-1.4) mg/dL Estim Creat Clear Calc 125.4 Estimated GFR > 60 Random Glucose 96 (60-115) mg/dL Uric Acid 7.7 H (3.4-7.0) mg/dL Calcium 8.8 D (8.4-10.2) mg/dL Total Bilirubin 0.5 (0.0-1.0) mg/dL AST 25 (5-37) U/L ALT 45 H (0-40) U/L Alkaline Phosphatase 81 D (39-117) U/L C-Reactive Protein 3.68 H (< or = 0.50) mg/dL Total Protein 6.9 (6.5-8.0) g/dL Albumin 4.2 (3.5-5.0) g/dL Discharge Plan Discharge Clinical Impression: Gout, Vasculitis, Petechiae, Purpura Patient Disposition: Home, Self-Care Instructions: Gout (ED), Acute Rash (ED), Purpura (ED) Additional Instructions: Your ultrasound and x-rays came back negative for blood clot and fracture. Left ankle swelling due to gout. Rash on legs probably due to vasculitis. You need further workup by a primary care provider. You will be discharged with steroids. Your CRP and uric acid were elevated. Platelet count was normal. Return to the ED for rectal bleeding, vomiting blood, coughing up blood, worsening rash, watery eyes, fever, chills, leg pain, calf pain, shortness of breath, fever, chills, worsening swelling of extremities, or any other concerning symptoms. Prescriptions: New prednisone 20 mg tablet 40 mg PO DAILY 5 Days Qty: 10 0RF indomethacin 50 mg capsule 50 mg PO TID 7 Days Qty: 21 0RF Rx Instructions: administer with food or milk allopurinol 100 mg tablet 100 mg PO DAILY 10 Days Qty: 10 0RF No Action atorvastatin 20 mg tablet 20 mg PO BEDTIME 90 Days Qty: 90 1RF citalopram 20 mg tablet 20 mg PO DAILY 90 Days Qty: 90 0RF hydroxyzine pamoate 25 mg capsule 25 mg PO DAILY 30 Days Qty: 30 3RF hydrochlorothiazide 25 mg tablet 25 mg PO DAILY 90 Days Qty: 90 0RF fluticasone propion-salmeterol [Advair Diskus] 250-50 mcg/dose blister with device 1 inh inhalation BID Qty: 60 1RF albuterol sulfate 90 mcg/actuation aero powdr breath act w/sensor 1 inh inhalation Q4-6H PRN (Reason: shortness of breath or wheezing) Qty: 1 0RF albuterol sulfate [Ventolin HFA] 90 mcg/actuation HFA aerosol inhaler 1 inh inhalation QID PRN (Reason: shortness of breath or wheezing) 30 Days Qty: 8.5 2RF lisinopril 10 mg tablet 10 mg PO DAILY 90 Days Qty: 90 0RF ondansetron 4 mg tablet,disintegrating 4 mg PO Q8H PRN (Reason: nausea and vomiting) Qty: 20 0RF prednisone 20 mg tablet 40 mg PO DAILY Qty: 10 0RF colchicine 0.6 mg tablet 0.6 mg PO DAILY Qty: 30 0RF indomethacin 50 mg capsule 50 mg PO QID PRN (Reason: pain (scale score 4-6)) Qty: 30 0RF Rx Instructions: administer with food or milk azithromycin 250 mg tablet See Rx Instructions PO .COMPLEX Qty: 6 0RF Rx Instructions: take 500 mg today (day 1), then 250 mg for 4 days (days 2-5) PO Referrals: Benja Tomlinson, [facility] [Primary Care Provider] - (Vasculitis, Gout) Stand Alone Forms: Work/School Release Interventions: ED Discharge Assessment Last Done: 06/24/22 00:52 Discharge Date/Time: 06/24/22 00:53 Print Language: Welsh
== END 2022-06-24 00:53 | disposition home or self-care (01) ==
PROVIDERS: Physician Assistant; Emergency Provider Internal Medicine; PCP Nurse Practitioner Family
DX: M10.9 Gout, unspecified (principal); I77.6 Arteritis, unspecified; D69.2 Other nonthrombocytopenic purpura; M79.662 Pain in left lower leg; I10 Essential (primary) hypertension
CPT/HCPCS: 36415; 73590; 73610; 80053; 84550; 85025; 85610; 85652; 85730; 86140; 93971; 99284

== ENCOUNTER 2022-07-10 04:22 | Emergency (ER) | payer MEDICAID, SELFPAY ==
--- NOTE | ~2022-07-10 | CT_ITS ---
EXAMINATION: CT HEAD WITHOUT CONTRAST CLINICAL INFORMATION: Accelerated hypertension with headache. COMPARISON: 07/23/2021 TECHNIQUE: Contiguous axial imaging was performed from the skull base to vertex without intravenous contrast. This CT examination was performed using dose optimization techniques as appropriate, variously including the following: * Automated exposure control * Adjustment of mA and/or kV according to patient size (this includes techniques or standardized protocols for targeted exams where dose is matched to indication/reason for exam; i.e. extremities or head) Use of iterative reconstruction technique DLP: 659 mGy-cm. FINDINGS: There is no evidence of acute intracranial hemorrhage or territorial infarction. No abnormal mass effect or midline shift is seen. Calderon to white matter differentiation is well preserved. No extra-axial fluid collections are identified. No hydrocephalus. No significant volume loss. There is no abnormal attenuation within the brain parenchyma. The osseous structures and soft tissues are normal. The mastoid air cells and visualized portions of the paranasal sinuses are well aerated. CT/CT head/brain wo con IMPRESSION: No acute intracranial pathology.
--- NOTE | ~2022-07-10 | XR_ITS ---
EXAMINATION: XR CHEST CLINICAL INFORMATION: Chest pain COMPARISON: 11/17/2021 TECHNIQUE: Frontal view of the chest was obtained. FINDINGS: The lungs are well expanded. There is no focal consolidation, edema, or effusion. No pneumothorax. The cardiomediastinal silhouette is within normal limits. No acute osseous abnormality. XR/XR chest 1V IMPRESSION: Clear lungs.
--- NOTE | 2022-07-10 04:24 | ECG_ITS ---
Test Reason : CHEST PAIN Blood Pressure : / mmHG Vent. Rate : 088 BPM Atrial Rate : 088 BPM P-R Int : 152 ms QRS Dur : 082 ms QT Int : 340 ms P-R-T Axes : 019 -30 015 degrees QTc Int : 411 ms Normal sinus rhythm Left axis deviation Abnormal ECG When compared with ECG of 23-JUL-2021 05:45, Nonspecific T wave abnormality is no longer Present Referred By: Generic ED Physician Electronically Signed By:FUNMILAYO BATRES
[2022-07-10 04:38] VITALS: BP 169/120; PULSE 88; RESP 18; TEMP 37; O2SAT 97
[2022-07-10 04:38] LABS: MANUAL DIFF FLAG NO
[2022-07-10 04:41] LABS: Basophils Percent Auto 0.2 % (0-2); Eosinophils Percent Auto 0.2 % (0-4); Hematocrit 43.8 % (42.0-52.0); Hemoglobin 15.2 g/dl (14.0-18.0); Imm Gran Abs Auto 0.02 X10*3/uL (0.00-0.03); Imm Gran Pct Auto 0.4 % (0.0-0.4); Lymphocytes Absolute Auto 2.3 X10*3/uL (1.2-4.9); Lymphocytes Percent Auto 43.3 % (20-40); Mean Corpuscular HGB Conc 34.7 g/dl (31.0-36.0); Mean Corpuscular Hemoglobin 29.5 pg (27.0-33.0); Mean Corpuscular Volume 84.9 fL (80.0-98.0); Mean Platelet Volume 10.1 fL (9.4-12.4); Monocytes Absolute Auto 0.7 X10*3/uL (0.1-1.2); Monocytes Percent Auto 13.9 % (2-11); Neutrophils Absolute Auto 2.2 x10*3/uL (2.0-8.3); Platelet Count 269 X10*3/uL (160-400); Red Blood Count 5.16 X10*6/uL (4.60-5.80); Red Cell Distribution Width 13.6 % (11.0-16.0); White Blood Count 5.3 X10*3/uL (4.8-10.8)
[2022-07-10 04:46] VITALS: BMI 29.8
[2022-07-10 04:55] LABS: Anion Gap 18 (12-20); Blood Urea Nitrogen 12 mg/dL (9-16); Calcium 8.8 mg/dL (8.4-10.2); Carbon Dioxide 22 mmol/L (22-29); Chloride 103 mmol/L (96-108); Creatinine Clr Calc Pharmacy 129.2; Estimated Glomerular Filt Rate > 60; Glucose Random 119 mg/dL (60-115); Potassium 4.4 mmol/L (3.3-5.1); Sodium 139 mmol/L (135-145)
[2022-07-10 04:58] LABS: Troponin-I High Sensitivity < 3.5 ng/L (<3.5-35.0)
--- NOTE | 2022-07-10 05:07 | ED_ITS ---
HPI - Chest Pain General Chief Complaint: Chest Pain Stated Complaint: chest pain, high BP Time Seen by Provider: 07/10/22 05:07 Source: patient Mode of arrival: ambulatory Limitations: no limitations History of Present Illness HPI narrative: Patient with history of anxiety, asthma gout, hypertension, PTSD woke up from the sleep with midsternal chest pain also has a headache check his blood pressure was 175/120 on arrival patient blood pressure was 169/120 with pulse rate of 88 EKG without any ischemic changes patient blood pressure is usually slightly elevated but not that high and does not get headaches. No nausea no vomiting no shortness of breath no radiation of the pain patient feel pain as pressure never had similar pain in the past Related Data Previous Rx's Medication Instructions Recorded ondansetron 4 mg disintegrating 4 mg PO Q8H PRN nausea and 07/23/21 tablet vomiting #20 tabs atorvastatin 20 mg tablet 20 mg PO BEDTIME 90 days #90 tabs 11/17/21 azithromycin 250 mg tablet See Rx Instructions PO .COMPLEX #6 11/17/21 tabs citalopram 20 mg tablet 20 mg PO DAILY 90 days #90 tabs 02/07/22 hydroxyzine pamoate 25 mg capsule 25 mg PO DAILY 30 days #30 caps 02/07/22 hydrochlorothiazide 25 mg tablet 25 mg PO DAILY 90 days #90 tabs 02/14/22 fluticasone 250 mcg-salmeterol 50 1 inh inhalation BID #60 ea 02/25/22 mcg/dose blistr powdr for inhalation (Advair Diskus) albuterol sulfate 90 mcg/actuation 1 inh inhalation Q4-6H PRN 03/01/22 breath activated powder shortness of breath or wheezing #1 inhaler,sensor ea albuterol sulfate 90 mcg/actuation 1 inh inhalation QID PRN shortness 03/02/22 aerosol inhaler (Ventolin HFA) of breath or wheezing 30 days #8.5 grams colchicine 0.6 mg tablet 0.6 mg PO DAILY #30 tabs 05/03/22 indomethacin 50 mg capsule 50 mg PO QID PRN pain (scale score 05/03/22 4-6) #30 caps lisinopril 10 mg tablet 10 mg PO DAILY 90 days #90 tabs 05/03/22 prednisone 20 mg tablet 40 mg PO DAILY #10 tabs 05/03/22 allopurinol 100 mg tablet 100 mg PO DAILY 10 days #10 tabs 06/24/22 indomethacin 50 mg capsule 50 mg PO TID 7 days #21 caps 06/24/22 prednisone 20 mg tablet 40 mg PO DAILY 5 days #10 tabs 06/24/22 Allergies Allergy/AdvReac Type Severity Reaction Status Date / Time tramadol Allergy Unknown Unknown Verified 07/10/22 04:51 Review of Systems Review of Systems: Yes all other systems are reviewed and are negative [facility] Past Medical History Medical History Anxiety Asthma Gout HTN (hypertension) Mild depression PTSD (post-traumatic stress disorder) Surgical History History of surgery Family History Family History Father Diabetes mellitus HTN (hypertension) Mother HTN (hypertension) Anxiety Sister HTN (hypertension) Brother Sleep apnea Maternal Grandmother History of heart attack Breast cancer Brain aneurysm Maternal Grandfather No problems noted. Paternal Grandfather No problems noted. Paternal Grandmother Diabetes mellitus CVD (cardiovascular disease) Social History Social History Alcohol intake: current Alcohol intake frequency: holidays/special occasions only Alcohol type: beer Patient Tobacco Use Status: Never used Tobacco Use of substances other than those prescribed or required for medical reasons: No Advance Directives: No Physical Exam Vital Signs: Vital Signs: Last Vital Signs Temp 98.6 F 07/10/22 04:38 Pulse 88 07/10/22 05:19 Resp 18 07/10/22 04:38 BP 146/99 H 07/10/22 05:29 Pulse Ox 97 07/10/22 04:38 O2 Del Method 07/10/22 04:38 BMI result Body Mass Index 29.8 Appearance: Alert. Oriented X3. No acute distress. Eyes: PERRLA, No Nystagmus ENT: Pharynx normal. Oral Mucosa moist Neck: Normal inspection. Neck supple. CVS: Normal heart rate and rhythm. Pulses normal. Respiratory: No respiratory distress. Equal air entry bilateral, no wheezing/rales/rhonchi Abdomen: Soft and nontender. Bowel sounds are present, no mass palpable, no CVA tenderness Skin: Skin warm and dry. Normal skin color. Normal skin turgor. Extremities: No lower extremity edema. No calf tenderness Neuro: Oriented X 3. No motor deficit. No sensory deficit.No cerebellar signs , cranial nerves II-XII intact MDM - Chest Pain MDM Narrative Medical decision making narrative: Patient history of hypertension with accelerated hypertension on arrival impro viola after labetalol also patient had chest pain 2 sets of cardiac enzymes are negative CT head was negative. Will discharge patient home at this time advised to increase the dose of lisinopril 20 mg. Lab Data Attestation: I reviewed the patient's lab results. Result diagrams: 07/10/22 04:33 07/10/22 04:33 Labs: Lab Results 07/10/22 07/10/22 07/10/22 Range/Units 04:33 04:33 04:33 WBC 5.3 (4.8-10.8) X10*3/uL RBC 5.16 (4.60-5.80) X10*6/uL Hgb 15.2 (14.0-18.0) g/dl Hct 43.8 (42.0-52.0) % MCV 84.9 (80.0-98.0) fL MCH 29.5 (27.0-33.0) pg MCHC 34.7 (31.0-36.0) g/dl RDW 13.6 (11.0-16.0) % Plt Count 269 (160-400) X10*3/uL MPV 10.1 (9.4-12.4) fL Immature Gran % (Auto) 0.4 (0.0-0.4) % Neut % (Auto) 42.0 L (45-73) % Lymph % (Auto) 43.3 H (20-40) % [place] % (Auto) 13.9 H (2-11) % Eos % (Auto) 0.2 (0-4) % Baso % (Auto) 0.2 (0-2) % Lymph # (Auto) 2.3 (1.2-4.9) X10*3/uL [place] # (Auto) 0.7 (0.1-1.2) X10*3/uL Eos # (Auto) 0.0 (0.0-0.4) X10*3/uL Baso # (Auto) 0.0 (0.0-0.2) X10*3/uL Abs Immat Gran (auto) 0.02 (0.00-0.03) X10*3/uL Absolute Neuts (auto) 2.2 (2.0-8.3) x10*3/uL Absolute Nucleated RBC 0.000 (0.0-0.012) X10*3/uL Nucleated RBC % (auto) 0.0 (0.0-0.2) /100WBC Sodium 139 (135-145) mmol/L Potassium 4.4 (3.3-5.1) mmol/L Chloride 103 (96-108) mmol/L Carbon Dioxide 22 (22-29) mmol/L Anion Gap 18 (12-20) BUN 12 (9-16) mg/dL Creatinine 0.85 (0.5-1.4) mg/dL Estim Creat Clear Calc 129.2 Estimated GFR > 60 Random Glucose 119 H (60-115) mg/dL Calcium 8.8 (8.4-10.2) mg/dL Troponin I High Sens < 3.5 (<3.5-35.0) ng/L 07/10/22 Range/Units 05:47 WBC (4.8-10.8) X10*3/uL RBC (4.60-5.80) X10*6/uL Hgb (14.0-18.0) g/dl Hct (42.0-52.0) % MCV (80.0-98.0) fL MCH (27.0-33.0) pg MCHC (31.0-36.0) g/dl RDW (11.0-16.0) % Plt Count (160-400) X10*3/uL MPV (9.4-12.4) fL Immature Gran % (Auto) (0.0-0.4) % Neut % (Auto) (45-73) % Lymph % (Auto) (20-40) % [place] % (Auto) (2-11) % Eos % (Auto) (0-4) % Baso % (Auto) (0-2) % Lymph # (Auto) (1.2-4.9) X10*3/uL [place] # (Auto) (0.1-1.2) X10*3/uL Eos # (Auto) (0.0-0.4) X10*3/uL Baso # (Auto) (0.0-0.2) X10*3/uL Abs Immat Gran (auto) (0.00-0.03) X10*3/uL Absolute Neuts (auto) (2.0-8.3) x10*3/uL Absolute Nucleated RBC (0.0-0.012) X10*3/uL Nucleated RBC % (auto) (0.0-0.2) /100WBC Sodium (135-145) mmol/L Potassium (3.3-5.1) mmol/L Chloride (96-108) mmol/L Carbon Dioxide (22-29) mmol/L Anion Gap (12-20) BUN (9-16) mg/dL Creatinine (0.5-1.4) mg/dL Estim Creat Clear Calc Estimated GFR Random Glucose (60-115) mg/dL Calcium (8.4-10.2) mg/dL Troponin I High Sens < 3.5 (<3.5-35.0) ng/L ECG Data ECG #1: Attestation: I personally reviewed and interpreted this ECG as follows: Interpretation: Normal sinus rhythm heart rate 88 beats per minute normal interval left axis acute ST changes no acute ischemia Discharge Plan Discharge Clinical Impression: HTN (hypertension), Chest pain Patient Disposition: Home, Self-Care Instructions: Chest Pain (ED), Hypertension (ED) Additional Instructions: Drink plenty of fluids decrease salt intake Your blood pressure was elevated, increase the dose of lisinopril to 20 mg daily Continue hydrochlorothiazide Check blood pressure daily before taking the medicine and before going to bed and should be less than 130/80 Follow with PCP Prescriptions: No Action atorvastatin 20 mg tablet 20 mg PO BEDTIME 90 Days Qty: 90 1RF citalopram 20 mg tablet 20 mg PO DAILY 90 Days Qty: 90 0RF hydroxyzine pamoate 25 mg capsule 25 mg PO DAILY 30 Days Qty: 30 3RF hydrochlorothiazide 25 mg tablet 25 mg PO DAILY 90 Days Qty: 90 0RF fluticasone propion-salmeterol [Advair Diskus] 250-50 mcg/dose blister with device 1 inh inhalation BID Qty: 60 1RF albuterol sulfate 90 mcg/actuation aero powdr breath act w/sensor 1 inh inhalation Q4-6H PRN (Reason: shortness of breath or wheezing) Qty: 1 0RF albuterol sulfate [Ventolin HFA] 90 mcg/actuation HFA aerosol inhaler 1 inh inhalation QID PRN (Reason: shortness of breath or wheezing) 30 Days Qty: 8.5 2RF lisinopril 10 mg tablet 10 mg PO DAILY 90 Days Qty: 90 0RF ondansetron 4 mg tablet,disintegrating 4 mg PO Q8H PRN (Reason: nausea and vomiting) Qty: 20 0RF prednisone 20 mg tablet 40 mg PO DAILY 5 Days Qty: 10 0RF indomethacin 50 mg capsule 50 mg PO TID 7 Days Qty: 21 0RF Rx Instructions: administer with food or milk allopurinol 100 mg tablet 100 mg PO DAILY 10 Days Qty: 10 0RF prednisone 20 mg tablet 40 mg PO DAILY Qty: 10 0RF colchicine 0.6 mg tablet 0.6 mg PO DAILY Qty: 30 0RF indomethacin 50 mg capsule 50 mg PO QID PRN (Reason: pain (scale score 4-6)) Qty: 30 0RF Rx Instructions: administer with food or milk azithromycin 250 mg tablet See Rx Instructions PO .COMPLEX Qty: 6 0RF Rx Instructions: take 500 mg today (day 1), then 250 mg for 4 days (days 2-5) PO
[2022-07-10 05:19] VITALS: BP 169/111; PULSE 88
[2022-07-10] MEDS: Nitroglycerin 2 % Oint 1 GM Packet 1 INCH TRANSDERMA (05:19)
[2022-07-10 05:29] VITALS: BP 146/99
--- NOTE | 2022-07-10 05:29 | PC.NURSE ---
PT BROUGHT TO CT NOW
--- NOTE | 2022-07-10 05:52 | PC.NURSE ---
REPEAT TROP DRAWN
[2022-07-10 06:15] LABS: Troponin-I High Sensitivity < 3.5 ng/L (<3.5-35.0)
[2022-07-10 06:28] VITALS: BP 132/92; PULSE 77; RESP 15; O2SAT 98
== END 2022-07-10 06:51 | disposition home or self-care (01) ==
PROVIDERS: Emergency Provider Internal Medicine
DX: R07.89 Other chest pain (principal); R51.9 Headache, unspecified; I10 Essential (primary) hypertension; Z79.899 Other long term (current) drug therapy
CPT/HCPCS: 36415; 70450; 71045; 80048; 84484; 85025; 93005; 96374; 99284; 99285

== ENCOUNTER 2023-01-18 08:27 | Emergency (ER) | payer MEDICAID, SELFPAY ==
--- NOTE | ~2023-01-18 | CT_ITS ---
EXAMINATION: CT BRAIN WITHOUT IV CONTRAST. CHEST X-RAY. CLINICAL INFORMATION: Chest pain COMPARISON: CT brain 07/10/2022 and chest x-ray 07/10/2022 TECHNIQUE: 5 mm thin axial and reformatted 2 minutes thin sagittal coronal images of brain were obtained without contrast. DLP 605. Chest AP upright portable. FINDINGS: Chest x-ray: The lungs are well-expanded and clear of acute pneumonic process. The heart size and pulmonary vascularity is normal. No gross bony abnormality seen. Brain: There is no acute intra-axial, extra-axial bleed, masses or midline shift. The pastor to white matter difference is maintained normal. No acute infarction evolution. There is no edema. Both lateral ventricles are symmetrical in size and configuration without enlargement. Bone windows reveal no calvarial abnormality. Bilateral paranasal sinuses and mastoid air cells are well-aerated. CT/CT head/brain wo IV con IMPRESSION: Unremarkable chest exam. No change from previous study. No acute intracranial process seen. No change from previous CT brain.
[2023-01-18 08:29] VITALS: BP 186/118; PULSE 86; RESP 16; TEMP 36.6; O2SAT 96; BMI 29.7
--- NOTE | 2023-01-18 08:29 | ECG_ITS ---
Test Reason : hypertension Blood Pressure : / mmHG Vent. Rate : 078 BPM Atrial Rate : 078 BPM P-R Int : 168 ms QRS Dur : 088 ms QT Int : 354 ms P-R-T Axes : 029 -21 003 degrees QTc Int : 403 ms Normal sinus rhythm Normal ECG When compared with ECG of 10-JUL-2022 04:25, No significant change was found Referred By: Generic ED Physician Electronically Signed By:JAMAR GRANDE MD
[2023-01-18 08:51] VITALS: BP 168/120; PULSE 77; RESP 17; O2SAT 96
[2023-01-18 09:30] VITALS: BP 195/131; PULSE 86; RESP 14; O2SAT 99
[2023-01-18] MEDS: amLODIPine Besylate 5 MG TABLET PO (09:40)
[2023-01-18] MEDS: hydrOXYzine HCL 25 MG TABLET PO (09:40)
[2023-01-18 09:56] VITALS: BP 170/110; PULSE 74; RESP 16; O2SAT 98
[2023-01-18 09:56] LABS: MANUAL DIFF FLAG NO
[2023-01-18 09:58] LABS: Basophils Absolute Auto 0.1 X10*3/uL (0.0-0.2); Basophils Percent Auto 0.6 % (0-2); Eosinophils Absolute Auto 0.1 X10*3/uL (0.0-0.4); Eosinophils Percent Auto 1.7 % (0-4); Hematocrit 45.7 % (42.0-52.0); Hemoglobin 15.3 g/dl (14.0-18.0); Imm Gran Abs Auto 0.03 X10*3/uL (0.00-0.03); Imm Gran Pct Auto 0.4 % (0.0-0.4); Lymphocytes Absolute Auto 1.8 X10*3/uL (1.2-4.9); Lymphocytes Percent Auto 23.3 % (20-40); Mean Corpuscular HGB Conc 33.5 g/dl (31.0-36.0); Mean Corpuscular Volume 86.6 fL (80.0-98.0); Mean Platelet Volume 10.1 fL (9.4-12.4); Monocytes Absolute Auto 0.8 X10*3/uL (0.1-1.2); Monocytes Percent Auto 10.9 % (2-11); Neutrophils Absolute Auto 4.9 x10*3/uL (2.0-8.3); Neutrophils Percent Auto 63.1 % (45-73); Platelet Count 211 X10*3/uL (160-400); Red Blood Count 5.28 X10*6/uL (4.60-5.80); Red Cell Distribution Width 13.2 % (11.0-16.0); White Blood Count 7.7 X10*3/uL (4.8-10.8)
[2023-01-18 10:03] LABS: INTERNATIONAL NORM RATIO 0.9 (0.9-1.1); Prothrombin Time 10.5 SEC (10.0-13.1)
--- NOTE | 2023-01-18 10:09 | ED.GENADULT ---
HPI - General Adult General Chief complaint: Dizziness Stated complaint: chest tightness headache Time Seen by Provider: 01/18/23 09:14 Source: patient Mode of arrival: ambulatory History of Present Illness HPI narrative: 42-year-old male with a past medical history of anxiety, asthma, gout, HTN, depression, PTSD, presenting to the ED complaining of substernal/right-sided chest tightness, lightheadedness, and headache since this morning. Admits woke up with symptoms. Reports mild blurry vision bilaterally. Headache not maximal in onset. Admits to taking his antihypertensives this morning. Reports PCP recently increased his Amlodipine from 0.5 to 2.5 two weeks ago. Denies taking anticoagulation. Denies SOB, abdominal pain, nausea/vomiting, pedal edema. Denies injury/fall or trauma Onset (ago): day(s) Related Data Previous Rx's Medication Instructions Recorded ondansetron 4 mg disintegrating 4 mg PO Q8H PRN nausea and 07/23/21 tablet vomiting #20 tabs atorvastatin 20 mg tablet 20 mg PO BEDTIME 90 days #90 tabs 11/17/21 fluticasone 250 mcg-salmeterol 50 1 inh inhalation BID #60 ea 02/25/22 mcg/dose blistr powdr for inhalation (Advair Diskus) albuterol sulfate 90 mcg/actuation 1 inh inhalation Q4-6H PRN 03/01/22 breath activated powder shortness of breath or wheezing #1 inhaler,sensor ea citalopram 20 mg tablet 20 mg PO DAILY 90 days #90 tabs 09/02/22 colchicine 0.6 mg tablet 0.6 mg PO DAILY #30 tabs 09/02/22 hydroxyzine pamoate 25 mg capsule 25 mg PO DAILY 30 days #30 caps 09/02/22 indomethacin 50 mg capsule 50 mg PO TID PRN gout flare 20 09/02/22 days #60 caps allopurinol 100 mg tablet 100 mg PO DAILY 30 days #30 tabs 12/09/22 amlodipine 2.5 mg tablet 2.5 mg PO DAILY 90 days #90 tabs 12/16/22 losartan 25 mg tablet 25 mg PO DAILY 90 days #90 tabs 12/16/22 amlodipine 5 mg tablet 5 mg PO DAILY #30 tabs 01/18/23 Allergies Allergy/AdvReac Type Severity Reaction Status Date / Time tramadol Allergy Unknown Unknown Verified 09/02/22 16:06 Review of Systems Review of Systems: Constitutional: No Fever, No Chills, No Night Sweats, No Fatigue, No Malaise ENT/Mouth: No Ear Pain, No Nasal Congestion, No Sinus Pain, No Hoarseness, No sore throat, No Rhinorrhea, No Swallowing Difficulty Eyes: No Eye Pain, No Swelling, No Redness, No Foreign Body, No Discharge, + Vision Changes Cardiovascular: + Chest Pain, No SOB, No Dyspnea on Exertion, No Orthopnea, No Edema, No Palpitations Respiratory: No Cough, No Sputum, No Dyspnea Gastrointestinal: No Nausea, No Vomiting, No Diarrhea, No Constipation, No Abdominal pain Genitourinary: No irregular bleeding, No Dysuria, No Urinary Frequency, No Urgency, No Flank Pain, No Urinary Flow Changes, No Hesitancy Musculoskeletal: No joint pain, No Myalgias, No Joint Swelling Skin: No Skin Lesions, No rash Neuro: No Weakness, No Numbness, No Paresthesias, No Loss of Consciousness, + lightheadedness, + Headache Yes all other systems are reviewed and are negative Constitutional: Constitutional: Reports as per HPI Neurologic: Denies Abnormal speech present [facility] Past Medical History Attestation statement: The following information was validated with the patient. Medical History Anxiety Asthma Gout HTN (hypertension) Mild depression PTSD (post-traumatic stress disorder) Surgical History History of surgery Family History Family History Father Diabetes mellitus HTN (hypertension) Mother HTN (hypertension) Anxiety Sister HTN (hypertension) Brother Sleep apnea Maternal Grandmother History of heart attack Breast cancer Brain aneurysm Maternal Grandfather No problems noted. Paternal Grandfather No problems noted. Paternal Grandmother Diabetes mellitus CVD (cardiovascular disease) Other Mental health disorder Social History Social History Alcohol intake: current Alcohol intake frequency: holidays/special occasions only Alcohol type: beer Patient Tobacco Use Status: Never used Tobacco e-Cigarette/Vaping Use: Never Used Second Hand Smoke Exposure: No service: No Cognitive needs: No Hearing needs: No Vision needs: Yes (Glasses) Physical Exam ED Vital Signs: Vital Signs - 24 hr 01/18/23 08:29 01/18/23 08:51 01/18/23 09:30 Temperature 97.8 F Pulse Rate 86 77 86 Respiratory Rate 16 17 14 Blood Pressure 186/118 H 168/120 H 195/131 H Pulse Oximetry 96 96 99 Oxygen Delivery Method Room Air Room Air Room Air 01/18/23 09:56 01/18/23 12:00 01/18/23 12:23 Temperature Pulse Rate 74 87 74 Respiratory Rate 16 16 18 Blood Pressure 170/110 H 136/87 124/90 H Pulse Oximetry 98 98 97 Oxygen Delivery Method Room Air Room Air Room Air BMI result Body Mass Index 29.7 Const General: cooperative, healthy appearing, no acute distress, alert, awake and anxious Orientation/consciousness: patient oriented x3 Limitations: no limitations HENMT Head: Yes normal to inspection and Yes atraumatic Ears: hearing grossly normal bilaterally General nose exam: Normal external nose present Face and sinus: Yes normal facial exam Eyes General: appearance normal, both eyes and all related structures Pupils: Equal, round and reactive pupils present EOM: EOMs intact bilaterally Neck Neck: Yes normal visual inspection and Yes no meningeal signs Resp Effort & Inspection: normal respiratory effort and no respiratory distress Auscultation: clear to auscultation bilaterally, no crackles, no rales, no rhonchi and no wheezes Cardio Rate: regular rate Heart sounds: S1 normal heart sound present and S2 normal heart sound present GI Inspection: Yes normal to inspection Palpation (GI): Soft to palpation, nontender, no guarding and not rigid General: Yes no CVA tenderness Back/Spine/Pelvis Back: no CVA tenderness Skin Rashes: no rashes Wounds: no wounds Neuro General: patient oriented x3, gait normal, tone normal, moves all extremities, no meningeal signs, no focal motor deficits and CN's II-XI intact bilaterally Cranial nerves: Yes CN's II-XII intact bilaterally, Yes Equal, round and reactive pupils present and Yes Bilaterally intact EOM present Cognition (Neuro): normal cognition Speech: No Abnormal speech present Gait exam (Neuro): Normal gait present Motor exam (neuro): 5/5 motor strength present throughout Extrem General: Yes normal to inspection Course Course Course Narrative: -1036--no leukocytosis. troponin negative XR chest 1V/CT head/brain wo IV con IMPRESSION: Unremarkable chest exam. No change from previous study. ? No acute intracranial process seen. No change from previous CT brain. >> was recent blood pressure 159/111 will give p.o. clonidine and Fioricet and re-evaluate -troponins without rise, mi unlikely -patient's blood pressure improved after p.o. clonidine 136/87 then 124/90. Patient currently only takes 2.5 mg of amlodipine and 25 mg of losartan daily. Will increase amlodipine to 5 mg total and have patient have close follow-up with PCP Medications Administered Discontinued Medications Generic Name Dose Route Start Last Admin Trade Name Freq PRN Reason Stop Dose Admin Acetaminophen/Butalbital/Caffeine 1 tab 01/18/23 10:26 01/18/23 10:41 Butalb/Acetamin/Caff 50/325/40 Tablet PO 01/18/23 10:27 1 tab ONCE ONE Administration Amlodipine Besylate 5 mg 01/18/23 09:29 01/18/23 09:40 Amlodipine Besylate 5 Mg Tablet PO 01/18/23 09:30 5 mg ONCE ONE Administration Protocol Clonidine HCl 0.1 mg 01/18/23 10:30 01/18/23 10:41 Clonidine Hcl 0.1 Mg Tablet PO 01/18/23 10:31 0.1 mg ONCE ONE Administration Protocol Hydroxyzine HCl 25 mg 01/18/23 09:29 01/18/23 09:40 Hydroxyzine Hcl 25 Mg Tablet PO 01/18/23 09:30 25 mg ONCE ONE Administration Medical Decision Making Medical Decision Making [facility] Narrative: 42-year-old male with a past medical history of anxiety, asthma, gout, HTN, depression, PTSD, presenting to the ED complaining of substernal/right-sided chest tightness, lightheadedness, and headache since this morning. On exam hypertensive 186/118 on arrival, mildly anxious, no focal neuro deficits, ambulating with steady gait concern for hypertensive urgency vs emergency. Rule out ACS and ICH. Lower suspicion for SAH. Per chart review patient chronically hypertensive. Low suspicion for dissection Plan: EKG, labs, head CT, PO amlodipine, PO hydroxyzine, closely observe/re-evaluate Please refer to course for remaining clinical decision making, interpretation of labs/imaging results, and discussions with consultants and/or family members. Differential Diagnosis Differential Diagnoses: The differential diagnosis associated with the presentation includes as above Admission/Observation Consideration of admission/observation: Escalation of care including admission/observation considered Lab Data MDM Lab Attestation statement: I reviewed the patient's lab results. 01/18/23 09:52 Labs: Lab Results 01/18/23 01/18/23 01/18/23 Range/Units 09:52 09:52 09:52 WBC 7.7 (4.8-10.8) X10*3/uL RBC 5.28 (4.60-5.80) X10*6/uL Hgb 15.3 (14.0-18.0) g/dl Hct 45.7 (42.0-52.0) % MCV 86.6 (80.0-98.0) fL MCH 29.0 (27.0-33.0) pg MCHC 33.5 (31.0-36.0) g/dl RDW 13.2 (11.0-16.0) % Plt Count 211 (160-400) X10*3/uL MPV 10.1 (9.4-12.4) fL Immature Gran % (Auto) 0.4 (0.0-0.4) % Neut % (Auto) 63.1 (45-73) % Lymph % (Auto) 23.3 (20-40) % [place] % (Auto) 10.9 (2-11) % Eos % (Auto) 1.7 (0-4) % Baso % (Auto) 0.6 (0-2) % Lymph # (Auto) 1.8 (1.2-4.9) X10*3/uL [place] # (Auto) 0.8 (0.1-1.2) X10*3/uL Eos # (Auto) 0.1 (0.0-0.4) X10*3/uL Baso # (Auto) 0.1 (0.0-0.2) X10*3/uL Abs Immat Gran (auto) 0.03 (0.00-0.03) X10*3/uL Absolute Neuts (auto) 4.9 (2.0-8.3) x10*3/uL Absolute Nucleated RBC 0.000 (0.0-0.012) X10*3/uL Nucleated RBC % (auto) 0.0 (0.0-0.2) /100WBC PT 10.5 (10.0-13.1) SEC INR 0.9 (0.9-1.1) Sodium (135-145) mmol/L Potassium (3.3-5.1) mmol/L Chloride (96-108) mmol/L Carbon Dioxide (22-29) mmol/L Anion Gap (12-20) BUN (9-16) mg/dL Creatinine (0.5-1.4) mg/dL Estim Creat Clear Calc Estimated GFR Random Glucose (60-115) mg/dL Calcium (8.4-10.2) mg/dL Magnesium (1.6-2.6) mg/dL Troponin I High Sens < 3.5 (<3.5-35.0) ng/L B-Natriuretic Peptide (<100) pg/mL 01/18/23 01/18/23 01/18/23 Range/Units 09:52 10:48 12:25 WBC (4.8-10.8) X10*3/uL RBC (4.60-5.80) X10*6/uL Hgb (14.0-18.0) g/dl Hct (42.0-52.0) % MCV (80.0-98.0) fL MCH (27.0-33.0) pg MCHC (31.0-36.0) g/dl RDW (11.0-16.0) % Plt Count (160-400) X10*3/uL MPV (9.4-12.4) fL Immature Gran % (Auto) (0.0-0.4) % Neut % (Auto) (45-73) % Lymph % (Auto) (20-40) % [place] % (Auto) (2-11) % Eos % (Auto) (0-4) % Baso % (Auto) (0-2) % Lymph # (Auto) (1.2-4.9) X10*3/uL [place] # (Auto) (0.1-1.2) X10*3/uL Eos # (Auto) (0.0-0.4) X10*3/uL Baso # (Auto) (0.0-0.2) X10*3/uL Abs Immat Gran (auto) (0.00-0.03) X10*3/uL Absolute Neuts (auto) (2.0-8.3) x10*3/uL Absolute Nucleated RBC (0.0-0.012) X10*3/uL Nucleated RBC % (auto) (0.0-0.2) /100WBC PT (10.0-13.1) SEC INR (0.9-1.1) Sodium 138 (135-145) mmol/L Potassium 4.5 (3.3-5.1) mmol/L Chloride 101 (96-108) mmol/L Carbon Dioxide 29 (22-29) mmol/L Anion Gap 13 (12-20) BUN 15 (9-16) mg/dL Creatinine 0.88 (0.5-1.4) mg/dL Estim Creat Clear Calc 124.5 Estimated GFR > 60 Random Glucose 103 (60-115) mg/dL Calcium 9.5 D (8.4-10.2) mg/dL Magnesium 1.8 (1.6-2.6) mg/dL Troponin I High Sens < 3.5 (<3.5-35.0) ng/L B-Natriuretic Peptide < 10 (<100) pg/mL Independent Interpretation I performed an independent interpretation of an: EKG Interpretation: My interpretation EKG normal sinus rhythm at a rate of 78. DC interval 168. QTC 4 3. No STEMI. No significant change when compared to prior Radiology Impression Discussion of test interpretation with radiology: I have reviewed the radiologist's reading. External Record Review External record reviewed: Outpatient record, Prior outpatient labs and Prior outpatient radiology Chronic Conditions Patient?s care impacted by: Hypertension Discharge Plan Discharge Clinical Impression: Uncontrolled hypertension Patient Disposition: Home, Self-Care Instructions: Heart Healthy Diet (ED), Hypertension (ED) Additional Instructions: Continue home medications. We will increase her amlodipine to 5 mg daily. Please have close follow-up with her PCP, monitor your blood pressures closely at home. If your blood pressure is elevated greater than 160/110, or low less than 100/60 Return to the ED immediately If he develops persistent worsening headache/dizziness, chest pain return to the ED. Practice a heart healthy diet. Avoid salty foods/ deep fried, caffeine Prescriptions: New amlodipine 5 mg tablet 5 mg PO DAILY Qty: 30 0RF No Action atorvastatin 20 mg tablet 20 mg PO BEDTIME 90 Days Qty: 90 1RF fluticasone propion-salmeterol [Advair Diskus] 250-50 mcg/dose blister with device 1 inh inhalation BID Qty: 60 1RF albuterol sulfate 90 mcg/actuation aero powdr breath act w/sensor 1 inh inhalation Q4-6H PRN (Reason: shortness of breath or wheezing) Qty: 1 0RF allopurinol 100 mg tablet 100 mg PO DAILY 30 Days Qty: 30 2RF amlodipine 2.5 mg tablet 2.5 mg PO DAILY 90 Days Qty: 90 1RF losartan 25 mg tablet 25 mg PO DAILY 90 Days Qty: 90 1RF ondansetron 4 mg tablet,disintegrating 4 mg PO Q8H PRN (Reason: nausea and vomiting) Qty: 20 0RF colchicine 0.6 mg tablet 0.6 mg PO DAILY Qty: 30 0RF indomethacin 50 mg capsule 50 mg PO TID PRN (Reason: gout flare) 20 Days Qty: 60 0RF Rx Instructions: administer with food or milk citalopram 20 mg tablet 20 mg PO DAILY 90 Days Qty: 90 0RF hydroxyzine pamoate 25 mg capsule 25 mg PO DAILY 30 Days Qty: 30 3RF Referrals: Physician,Unknown J [Primary Care Provider] - 2 days Stand Alone Forms: Work/School Release Interventions: ED Discharge Assessment Last Done: 01/18/23 14:03 Discharge Date/Time: 01/18/23 14:04
[2023-01-18 10:20] LABS: B Type Natriuretic Peptide < 10 pg/mL (<100); Troponin-I High Sensitivity < 3.5 ng/L (<3.5-35.0)
[2023-01-18] MEDS: cloNIDine HCL 0.1 MG TABLET PO (10:41)
[2023-01-18] MEDS: Butalb/Acetamin/Caff 50/325/40 TABLET 1 TAB PO (10:41)
[2023-01-18 11:10] LABS: Anion Gap 13 (12-20); Blood Urea Nitrogen 15 mg/dL (9-16); Calcium 9.5 mg/dL (8.4-10.2); Carbon Dioxide 29 mmol/L (22-29); Chloride 101 mmol/L (96-108); Creatinine Clr Calc Pharmacy 124.5; Estimated Glomerular Filt Rate > 60; Glucose Random 103 mg/dL (60-115); Magnesium 1.8 mg/dL (1.6-2.6); Potassium 4.5 mmol/L (3.3-5.1); Sodium 138 mmol/L (135-145)
[2023-01-18 12:00] VITALS: BP 136/87; PULSE 87; RESP 16; O2SAT 98
[2023-01-18 12:23] VITALS: BP 124/90; PULSE 74; RESP 18; O2SAT 97
[2023-01-18 13:04] LABS: Troponin-I High Sensitivity < 3.5 ng/L (<3.5-35.0)
== END 2023-01-18 14:04 | disposition home or self-care (01) ==
PROVIDERS: Physician Assistant; Emergency Provider Emergency Medicine
DX: I10 Essential (primary) hypertension (principal); R42 Dizziness and giddiness; E78.5 Hyperlipidemia, unspecified; J45.909 Unspecified asthma, uncomplicated; F41.9 Anxiety disorder, unspecified; Z79.02 Long term (current) use of antithrombotics/antiplatelets; Z79.899 Other long term (current) drug therapy
CPT/HCPCS: 36415; 70450; 71045; 80048; 83735; 83880; 84484; 85025; 85610; 93005; 99284

== ENCOUNTER → 2023-02-03 14:43 | Outpatient (BNVA) | payer MEDICAID, SELFPAY | PROVIDERS: Visit Provider Urology | DX: N28.1 Cyst of kidney, acquired (principal) | CPT/HCPCS: 99202 ==

== ENCOUNTER 2023-02-17 09:00 | Emergency (ER) | payer MEDICAID, SELFPAY ==
--- NOTE | ~2023-02-17 | XR_ITS ---
EXAMINATION: XR RIBS, RIGHT CLINICAL INFORMATION: Fall while playing basketball on COMPARISON: Chest radiograph 01/18/2023 TECHNIQUE: 3 views of the right ribs were obtained. FINDINGS: Lungs are clear. No consolidation, pneumothorax, or pleural effusion. The cardiomediastinal silhouette and pulmonary vasculature are normal. Osseous structures are unremarkable. Ribs are intact. No fractures are identified. XR/XR ribs RT min 3V w CXR1V IMPRESSION: Unremarkable examination.
[2023-02-17 09:16] VITALS: BP 164/113; PULSE 80; RESP 16; TEMP 36.6; O2SAT 98; BMI 29.8
--- NOTE | 2023-02-17 10:33 | ED_ITS ---
HPI - Fall General Chief Complaint: Fall Stated Complaint: R rib pain from fall Time Seen by Provider: 02/17/23 09:32 Source: patient Mode of arrival: ambulatory Limitations: no limitations History of Present Illness HPI Narrative: 42-year-old male previously healthy here with complaints of right-sided chest pain which occurred after fall on . Patient reports he is playing basketball tripped and fell landing on the right chest. Denies hitting his head or loss of conscious. He reports since then he has right-sided chest wall pain with no reports of shortness of breath, fever or cough. Related Data Previous Rx's Medication Instructions Recorded atorvastatin 20 mg tablet 20 mg PO BEDTIME 90 days #90 tabs 11/17/21 fluticasone 250 mcg-salmeterol 50 1 inh inhalation BID #60 ea 02/25/22 mcg/dose blistr powdr for inhalation (Advair Diskus) albuterol sulfate 90 mcg/actuation 1 inh inhalation Q4-6H PRN 03/01/22 breath activated powder shortness of breath or wheezing #1 inhaler,sensor ea citalopram 20 mg tablet 20 mg PO DAILY 90 days #90 tabs 09/02/22 colchicine 0.6 mg tablet 0.6 mg PO DAILY #30 tabs 09/02/22 hydroxyzine pamoate 25 mg capsule 25 mg PO DAILY 30 days #30 caps 09/02/22 indomethacin 50 mg capsule 50 mg PO TID PRN gout flare 20 09/02/22 days #60 caps allopurinol 100 mg tablet 100 mg PO DAILY 30 days #30 tabs 12/09/22 losartan 25 mg tablet 25 mg PO DAILY 90 days #90 tabs 12/16/22 amlodipine 5 mg tablet 5 mg PO DAILY #30 tabs 01/18/23 cyclobenzaprine 10 mg tablet 10 mg PO TID PRN muscle spasm #10 02/17/23 tabs ibuprofen 600 mg tablet 600 mg PO Q8H PRN pain #30 tabs 02/17/23 Allergies Allergy/AdvReac Type Severity Reaction Status Date / Time tramadol Allergy Unknown Unknown Verified 02/17/23 09:18 Review of Systems Review of Systems: Yes all other systems are reviewed and are negative Constitutional: Constitutional: Reports no additional constitutional complaints, Denies body ache(s), Denies chills, Denies fever(s), Denies headache(s) and Denies weakness Eyes: Eyes: Reports no additional eye complaints and Denies change in vision ENT: Reports system reviewed and no additional complaints, except as documented, Denies dizziness, Denies headache(s), Denies nasal congestion, Denies nasal discharge and Denies neck pain Cardiovascular: Cardiovascular: Reports no additional cardiovascular complaints, Reports chest pain, Denies leg edema and Denies dyspnea Respiratory: Respiratory: Reports no additional respiratory complaints, Denies cough and Denies dyspnea Gastrointestinal: Gastrointestinal: Reports no additional gastrointestinal complaints, Denies abdominal pain, Denies diarrhea, Denies nausea and Denies vomiting Genitourinary: Genitourinary: Denies urinary incontinence Musculoskeletal: Musculoskeletal: Reports no additional musculoskeletal complaints, Denies back pain, Denies arthralgias, Denies joint swelling, Denies neck pain, Denies numbness and Denies tingling Integumentary/Breasts: Skin/Breast: Reports system reviewed and no additional complaints, except as docu and Denies rash Neurologic: Reports system reviewed and no additional complaints, except as documented, Denies Abnormal speech present, Denies dizziness, Denies headache(s), Denies numbness, Denies tingling and Denies weakness PMFSH Past Medical History Attestation statement: The following information was validated with the patient. Source: old records reviewed and nursing notes reviewed Medical History Anxiety Asthma Gout HTN (hypertension) Mild depression PTSD (post-traumatic stress disorder) Surgical History History of surgery Family History Family History Father Diabetes mellitus HTN (hypertension) Mother HTN (hypertension) Anxiety Sister HTN (hypertension) Brother Sleep apnea Maternal Grandmother History of heart attack Breast cancer Brain aneurysm Maternal Grandfather No problems noted. Paternal Grandfather No problems noted. Paternal Grandmother Diabetes mellitus CVD (cardiovascular disease) Other Mental health disorder Social History Social History Alcohol intake: current Alcohol intake frequency: holidays/special occasions only Alcohol type: beer Patient Tobacco Use Status: Never used Tobacco Smoked in Last 30 Days: No e-Cigarette/Vaping Use: Never Used Second Hand Smoke Exposure: No Use of substances other than those prescribed or required for medical reasons: No Advance Directives: No Advance Directives Information Provided: Yes service: No Cognitive needs: No Hearing needs: No Vision needs: Yes (Glasses) Physical Exam Vital Signs: Vital Signs: Last Vital Signs Temp 97.8 F 02/17/23 09:16 Pulse 80 02/17/23 11:02 Resp 20 02/17/23 11:02 BP 165/106 H 02/17/23 11:02 Pulse Ox 97 02/17/23 11:02 O2 Del Method Room Air 02/17/23 11:02 BMI result Body Mass Index 29.8 Const: General: cooperative, healthy appearing, comfortable and no acute distress Orientation/consciousness: patient oriented x3 Limitations: no limitations HEENT: Head: Yes normal to inspection Ears: hearing grossly normal bilaterally General nose exam: Normal external nose present Face and sinus: Yes normal facial exam Mouth: Normal oral and palatal mucosa present Throat: Yes posterior oropharynx normal Eyes: General: appearance normal, both eyes and all related structures Pupils: Equal, round and reactive pupils present Neck: Neck: Yes normal visual inspection Chest: Chest palpation & inspection: normal inspection of the chest Chest/axillae images: 1. Chest wall tenderness to palpation with no ecchymosis or crepitus. Pain is worsened with movement, deep breathing, movement of the right upper extremity Resp: Effort & Inspection: normal respiratory effort Auscultation: clear to auscultation bilaterally Cardio: Rate: regular rate Rhythm: regular rhythm Peripheral pulses: Peripheral pulses 2+ throughout GI: Inspection: Yes normal to inspection Palpation (GI): Soft to palpation and nontender Auscultation: normal bowel sounds Back/Spine/Pelvis: Thoracic/Lumbar Spine: thoracic and lumbar spine normal to inspection Skin: General skin exam: no rashes or lesions noted Neuro: General: patient oriented x3, no focal motor deficits and normal sensation to monofilament Cranial nerves: Yes Equal, round and reactive pupils present Cognition (Neuro): normal cognition Speech: No Abnormal speech present Gait exam (Neuro): Normal gait present Motor exam (neuro): 5/5 motor strength present throughout Extrem: General: Yes normal to inspection Course Course Course Narrative: X-ray show no acute fracture. Likely chest wall contusion. Patient will be sent home with NSAIDs and low-dose Flexeril with recommendations to rest, gentle stretching and apply ice. Reviewed worrisome signs and symptoms of when to return to the emergency room. Comfortable plan for discharge home. Medical Decision Making Medical Decision Making [facility] Narrative: This is a 42-year-old male who had a mechanical fall on now with right- sided chest wall pain after he struck this area on . On exam patient with some mild chest wall tenderness with no ecchymosis or crepitus or chest wall deformity. No focal abdominal pain. Lungs are clear. Vitals stable. Will send patient for x-rays of right ribs Differential Diagnosis Differential Diagnoses: The differential diagnosis associated with the presentation includes Rib fracture, rib contusion Low concern for pneumothorax, intra-abdominal pathology Lab Data [facility] Lab Attestation statement: I reviewed the patient's lab results. Independent Interpretation I performed an independent interpretation of an: Plain X-Ray Interpretation: I independently reviewed the x-ray agree with the radiologist's report Radiology Impression Discussion of test interpretation with radiology: I have reviewed the radiologis t's reading. Radiologist Impression: [address] [address] XRay Report Signed Patient: Keith Cassidy MR#: [id number] : 1980 Acct:[id number] Age/Sex: 42 / M ADM Date: 02/17/23 Loc: .ED Attending Dr: Ordering Physician: Generic ED Physician Date of Service: 02/17/23 Procedure(s): XR ribs RT min 3V w CXR1V Accession Number(s): [id number] cc: Generic ED Physician~ EXAMINATION: XR RIBS, RIGHT CLINICAL INFORMATION: Fall while playing basketball on COMPARISON: Chest radiograph 01/18/2023 TECHNIQUE: 3 views of the right ribs were obtained. FINDINGS: Lungs are clear. No consolidation, pneumothorax, or pleural effusion. The cardiomediastinal silhouette and pulmonary vasculature are normal. Osseous structures are unremarkable. Ribs are intact. No fractures are identified. XR/XR ribs RT min 3V w CXR1V IMPRESSION: Unremarkable examination. ? Discharge Plan Discharge Clinical Impression: Chest wall contusion Patient Disposition: Home, Self-Care Instructions: Contusion in Adults (ED), Rib Contusion (ED) Additional Instructions: Your x-ray show no fracture. You likely have a contusion Apply ice to the affected area No heavy lifting or bending We are prescribing a muscle relaxant. Do not drink or drive or operate heavy machinery with this medication Prescriptions: New cyclobenzaprine 10 mg tablet 10 mg PO TID PRN (Reason: muscle spasm) Qty: 10 0RF ibuprofen 600 mg tablet 600 mg PO Q8H PRN (Reason: pain) Qty: 30 0RF No Action atorvastatin 20 mg tablet 20 mg PO BEDTIME 90 Days Qty: 90 1RF fluticasone propion-salmeterol [Advair Diskus] 250-50 mcg/dose blister with device 1 inh inhalation BID Qty: 60 1RF albuterol sulfate 90 mcg/actuation aero powdr breath act w/sensor 1 inh inhalation Q4-6H PRN (Reason: shortness of breath or wheezing) Qty: 1 0RF allopurinol 100 mg tablet 100 mg PO DAILY 30 Days Qty: 30 2RF losartan 25 mg tablet 25 mg PO DAILY 90 Days Qty: 90 1RF amlodipine 5 mg tablet 5 mg PO DAILY Qty: 30 0RF colchicine 0.6 mg tablet 0.6 mg PO DAILY Qty: 30 0RF indomethacin 50 mg capsule 50 mg PO TID PRN (Reason: gout flare) 20 Days Qty: 60 0RF Rx Instructions: administer with food or milk citalopram 20 mg tablet 20 mg PO DAILY 90 Days Qty: 90 0RF hydroxyzine pamoate 25 mg capsule 25 mg PO DAILY 30 Days Qty: 30 3RF Referrals: Physician,Unknown J [Primary Care Provider] - 10 days Stand Alone Forms: Work/School Release Interventions: ED Discharge Assessment Last Done: 02/17/23 11:05 Discharge Date/Time: 02/17/23 11:06
[2023-02-17 11:02] VITALS: BP 165/106; PULSE 80; RESP 20; O2SAT 97
== END 2023-02-17 11:06 | disposition home or self-care (01) ==
PROVIDERS: Emergency Provider Emergency Medicine
DX: S20.213A Contusion of bilateral front wall of thorax, initial encounter (principal); R07.81 Pleurodynia; W01.0XXA Fall on same level from slipping, tripping and stumbling without subsequent striking against object, initial encounter; Y93.9 Activity, unspecified; Y92.9 Unspecified place or not applicable; Y99.9 Unspecified external cause status
CPT/HCPCS: 71101; 99283; 99284

== ENCOUNTER 2023-03-07 20:30 | Emergency (ER) | payer OTHER, SELFPAY ==
--- NOTE | ~2023-03-07 | CT_ITS ---
EXAMINATION: CT HEAD WITHOUT CONTRAST CLINICAL INFORMATION: Headache. Elevated blood pressure. COMPARISON: CT head 01/18/2023. TECHNIQUE: Contiguous axial imaging was performed from the skull base to vertex without intravenous administration of contrast. This CT examination was performed using dose optimization techniques as appropriate, variously including the following: *Automated exposure control *Adjustment of mA and/or kV according to patient size (this includes techniques or standardized protocols for targeted exams where dose is matched to indication/reason for exam; i.e. extremities or head) *Use of iterative reconstruction technique DLP: 622 mGy-cm FINDINGS: Mild diffuse commensurate prominence of ventricles and sulci is noted. No intrarenal hemorrhage, tumors or acute infarcts visualized. The orbits and globes are normal in appearance. No significant opacification of the visualized paranasal sinuses, mastoid air cells and middle ear cavities. CT/CT head/brain wo IV con IMPRESSION: No acute intracranial abnormalities.
[2023-03-07 20:36] VITALS: BP 145/103; BP 192/132; PULSE 103; PULSE 78; RESP 18; TEMP 36.9; O2SAT 97; O2SAT 98; BMI 29.7
[2023-03-07 20:49] VITALS: BP 152/106; PULSE 72; RESP 18; TEMP 36.9; O2SAT 98
--- NOTE | 2023-03-07 20:59 | ECG_ITS ---
Test Reason : HYPERTENSION Blood Pressure : / mmHG Vent. Rate : 074 BPM Atrial Rate : 074 BPM P-R Int : 172 ms QRS Dur : 074 ms QT Int : 330 ms P-R-T Axes : 047 -25 038 degrees QTc Int : 366 ms Artifact in tracing Normal sinus rhythm Minimal voltage criteria for LVH, may be normal variant ( R in aVL ) Borderline ECG When compared with ECG of 18-JAN-2023 08:33, Nonspecific T wave abnormality now evident in Lateral leads Referred By: Cortez San Electronically Signed By:THAI WINSLOW
--- NOTE | 2023-03-07 20:59 | ED.HA ---
HPI - Headache General Chief Complaint: Nausea/Vomiting/Diarrhea Stated Complaint: Headache with Hypertension Time Seen by Provider: 03/07/23 20:42 Source: patient Mode of arrival: ambulatory Limitations: no limitations History of Present Illness HPI Narrative: 42-year-old male who presents emergency department for evaluation headache, nausea, vomiting, dizziness, right shoulder pain. The patient states that he was feeling fine all day. He was watching television at around 18:00 hours when he had a sudden onset nausea and had several episodes of vomiting. He then developed a headache. He points to the frontal area of his head when asked to localize the pain. Describes it as a constant pressure-like pain which was 7/10. The patient states that he drinks several cups of water. He took his blood pressure at home and it was 185/132. He then developed right shoulder pain felt were so he called an ambulance. EN route to the hospital the patient was given Zofran 4 mg IV and he states that his headache is improved to 4/10 and his nausea has resolved. Patient states he was feeling very anxious she he did take his temp hydroxyzine prior to coming to the ED. The patient does have essential hypertension. He states that he had been on lisinopril but this was discontinued secondary to a dry, chronic cough. The patient saw his provider approximately 1 or 2 months prior and his hydrochlorothiazide was also discontinued. The patient states that he has been on losartan 25 mg daily and amlodipine 5 mg daily. He has been compliant with his medications. He does not check his baseline blood pressure and he does not know if his blood pressures are normal or high. He states that at his last PCP visit several months prior his blood pressure was elevated Related Data Previous Rx's Medication Instructions Recorded atorvastatin 20 mg tablet 20 mg PO BEDTIME 90 days #90 tabs 11/17/21 fluticasone 250 mcg-salmeterol 50 1 inh inhalation BID #60 ea 02/25/22 mcg/dose blistr powdr for inhalation (Advair Diskus) albuterol sulfate 90 mcg/actuation 1 inh inhalation Q4-6H PRN 03/01/22 breath activated powder shortness of breath or wheezing #1 inhaler,sensor ea citalopram 20 mg tablet 20 mg PO DAILY 90 days #90 tabs 09/02/22 colchicine 0.6 mg tablet 0.6 mg PO DAILY #30 tabs 09/02/22 hydroxyzine pamoate 25 mg capsule 25 mg PO DAILY 30 days #30 caps 09/02/22 indomethacin 50 mg capsule 50 mg PO TID PRN gout flare 20 09/02/22 days #60 caps allopurinol 100 mg tablet 100 mg PO DAILY 30 days #30 tabs 12/09/22 losartan 25 mg tablet 25 mg PO DAILY 90 days #90 tabs 12/16/22 amlodipine 5 mg tablet 5 mg PO DAILY #30 tabs 01/18/23 cyclobenzaprine 10 mg tablet 10 mg PO TID PRN muscle spasm #10 02/17/23 tabs ibuprofen 600 mg tablet 600 mg PO Q8H PRN pain #30 tabs 02/17/23 amlodipine 10 mg tablet 10 mg PO DAILY #30 tabs 03/07/23 Allergies Allergy/AdvReac Type Severity Reaction Status Date / Time tramadol Allergy Unknown Unknown Verified 02/17/23 09:18 Review of Systems Review of Systems: Yes all other systems are reviewed and are negative [facility] Past Medical History [facility] Narrative: Social history: Patient denies tobacco use. He states that he does drink alcohol 2 times a week, 2-3 beers when he drinks. He denies drug use. Medical History Anxiety Asthma Gout HTN (hypertension) Mild depression PTSD (post-traumatic stress disorder) Surgical History History of surgery Family History Family History Father Diabetes mellitus HTN (hypertension) Mother HTN (hypertension) Anxiety Sister HTN (hypertension) Brother Sleep apnea Maternal Grandmother History of heart attack Breast cancer Brain aneurysm Maternal Grandfather No problems noted. Paternal Grandfather No problems noted. Paternal Grandmother Diabetes mellitus CVD (cardiovascular disease) Other Mental health disorder Social History Social History Alcohol intake: current Alcohol intake frequency: a few times a week Alcohol type: beer Patient Tobacco Use Status: Never used Tobacco Smoked in Last 30 Days: No e-Cigarette/Vaping Use: Never Used Second Hand Smoke Exposure: No Use of substances other than those prescribed or required for medical reasons: No Advance Directives: No Advance Directives Information Provided: Yes service: No Cognitive needs: No Hearing needs: No Vision needs: Yes (Glasses) Physical Exam Vital Signs: Vital Signs: Last Vital Signs Temp 98.4 F 03/07/23 20:49 Pulse 72 03/07/23 20:49 Resp 18 03/07/23 20:49 BP 152/106 H 03/07/23 20:49 Pulse Ox 98 03/07/23 20:49 O2 Del Method Room Air 03/07/23 20:49 BMI result Body Mass Index 29.7 Const: Other: Awake, alert, male patient, very pleasant cooperative, does not appear to be in distress, answers all questions appropriately HEENT: Head: Yes normal to inspection, Yes normocephalic and Yes atraumatic Ears: external ears normal General nose exam: Normal external nose present Face and sinus: Yes normal facial exam Mouth: Normal oral and palatal mucosa present Throat: Yes posterior oropharynx normal Eyes: General: appearance normal, both eyes and all related structures Pupils: Equal, round and reactive pupils present Neck: Neck: Yes normal visual inspection, Yes no lymphadenopathy, Yes trachea midline and Yes supple Chest: Chest palpation & inspection: normal inspection of the chest and normal palpation of entire chest wall Resp: Effort & Inspection: normal respiratory effort and able to speak in complete sentences Auscultation: clear to auscultation bilaterally Cardio: Rate: regular rate Rhythm: regular rhythm Heart sounds: S1 normal heart sound present, S2 normal heart sound present and no murmurs GI: Inspection: Yes normal to inspection Palpation (GI): Soft to palpation, nontender and no guarding Auscultation: normal bowel sounds : General: Yes no CVA tenderness Back/Spine/Pelvis: Back: no CVA tenderness Skin: General skin exam: no rashes or lesions noted Neuro: Cranial nerves: Yes CN's II-XII intact bilaterally and Yes Equal, round and reactive pupils present Cognition (Neuro): normal cognition Motor exam (neuro): 5/5 motor strength present throughout Extrem: General: Yes normal to inspection Psych: Appearance: grossly normal Speech and movement: Normal speech and movement present Affect: normal affect Attitude: cooperative Medications Administered Discontinued Medications Generic Name Dose Route Start Last Admin Trade Name Freq PRN Reason Stop Dose Admin Amlodipine Besylate 5 mg 03/07/23 20:59 03/07/23 21:14 Amlodipine Besylate 5 Mg Tablet PO 03/07/23 21:00 5 mg ONCE ONE Administration Protocol Ketorolac Tromethamine 15 mg 03/07/23 20:59 03/07/23 21:10 Ketorolac Tromethamine 15 Mg/Ml Vial IVPUSH 03/07/23 21:00 15 mg ONCE STA Administration Metoclopramide HCl 10 mg 03/07/23 20:59 03/07/23 21:10 Metoclopramide Hcl 10 Mg/2 Ml Vial IVPUSH 03/07/23 21:00 10 mg ONCE STA Administration Medical Decision Making Medical Decision Making MDM Narrative: 42-year-old male with a history of essential hypertension who does not check his blood pressure on a regular basis, who had changes in his antihypertensive medications several months prior who developed headache, nausea, vomiting, dizziness, right shoulder pain that occurred around 18:00 hours. Patient took his blood pressure at home and it was 185/132. He did take hydroxyzine 25 mg orally for anxiety prior to coming to the emergency department. He was transported to the emergency department by ambulance. At the time my evaluation his headache had improved but was still present, his anxiety improved, he had no other complaints. Initial vital signs revealed a blood pressure of 145/103 otherwise were unremarkable. Physical examination was normal with a nonfocal neurologic exam. I ordered a CBC, CMP, PT/INR, PTT, troponin, urinalysis and urine drug screen. I will obtain an EKG and CT scan of the brain. Patient will be placed on a cardiac and O2 saturation monitor. 2252: My interpretation of patient's laboratory data is as follows: CBC normal. Coags normal. CMP revealed an elevated AST and ALT of [address] scan of the brain revealed no acute abnormalities EKG unremarkable Patient is feeling better after the above treatment. Patient's blood pressure still elevated but is consistent with his essential hypertension. I did discuss this with the patient. I will increase the patient's amlodipine from 5 mg daily to 10 mg daily. Patient was advised to continue taking his losartan as prescribed. Patient was advised to check his blood pressures on Mondays, Wednesdays and Fridays for the next 2-4 weeks and to follow-up with his doctor to discuss these readings. I did tell the patient that after we make a medication change can take up to 6 weeks for the blood pressure readings to improve Differential Diagnosis Differential diagnosis includes was not limited to essential hypertension, anxiety, hypertensive urgency, renal failure, electrolyte abnormalities, myocardial infarct Lab Data [facility] Lab Attestation statement: I reviewed the patient's lab results. Please see [facility] 03/07/23 21:21 03/07/23 21:21 Labs: Lab Results 03/07/23 03/07/23 03/07/23 Range/Units 21:21 21:21 21:21 WBC 7.0 (4.8-10.8) X10*3/uL RBC 5.12 (4.60-5.80) X10*6/uL Hgb 15.2 (14.0-18.0) g/dl Hct 44.1 (42.0-52.0) % MCV 86.1 (80.0-98.0) fL MCH 29.7 (27.0-33.0) pg MCHC 34.5 (31.0-36.0) g/dl RDW 13.1 (11.0-16.0) % Plt Count 248 (160-400) X10*3/uL MPV 10.0 (9.4-12.4) fL Immature Gran % (Auto) 0.6 H (0.0-0.4) % Neut % (Auto) 54.9 (45-73) % Lymph % (Auto) 30.0 (20-40) % [place] % (Auto) 11.6 H (2-11) % Eos % (Auto) 1.9 (0-4) % Baso % (Auto) 1.0 (0-2) % Lymph # (Auto) 2.1 (1.2-4.9) X10*3/uL [place] # (Auto) 0.8 (0.1-1.2) X10*3/uL Eos # (Auto) 0.1 (0.0-0.4) X10*3/uL Baso # (Auto) 0.1 (0.0-0.2) X10*3/uL Abs Immat Gran (auto) 0.04 H (0.00-0.03) X10*3/uL Absolute Neuts (auto) 3.8 (2.0-8.3) x10*3/uL Absolute Nucleated RBC 0.000 (0.0-0.012) X10*3/uL Nucleated RBC % (auto) 0.0 (0.0-0.2) /100WBC PT 11.3 (10.0-13.1) SEC INR 1.0 (0.9-1.1) APTT 26.9 (26.0-36.4) SEC Sodium 139 (135-145) mmol/L Potassium 4.2 (3.3-5.1) mmol/L Chloride 103 (96-108) mmol/L Carbon Dioxide 23 (22-29) mmol/L Anion Gap 17 (12-20) BUN 15 (9-16) mg/dL Creatinine 0.91 (0.5-1.4) mg/dL Estim Creat Clear Calc 120.4 Estimated GFR > 60 Random Glucose 103 (60-115) mg/dL Calcium 9.2 (8.4-10.2) mg/dL Total Bilirubin 0.7 (0.0-1.0) mg/dL AST 44 H (5-37) U/L ALT 69 H (0-40) U/L Alkaline Phosphatase 112 (39-117) U/L Troponin I High Sens (<3.5-35.0) ng/L Total Protein 7.4 (6.5-8.0) g/dL Albumin 4.7 (3.5-5.0) g/dL / Range/Units 21:21 WBC (4.8-10.8) X10*3/uL RBC (4.60-5.80) X10*6/uL Hgb (14.0-18.0) g/dl Hct (42.0-52.0) % MCV (80.0-98.0) fL MCH (27.0-33.0) pg MCHC (31.0-36.0) g/dl RDW (11.0-16.0) % Plt Count (160-400) X10*3/uL MPV (9.4-12.4) fL Immature Gran % (Auto) (0.0-0.4) % Neut % (Auto) (45-73) % Lymph % (Auto) (20-40) % [place] % (Auto) (2-11) % Eos % (Auto) (0-4) % Baso % (Auto) (0-2) % Lymph # (Auto) (1.2-4.9) X10*3/uL [place] # (Auto) (0.1-1.2) X10*3/uL Eos # (Auto) (0.0-0.4) X10*3/uL Baso # (Auto) (0.0-0.2) X10*3/uL Abs Immat Gran (auto) (0.00-0.03) X10*3/uL Absolute Neuts (auto) (2.0-8.3) x10*3/uL Absolute Nucleated RBC (0.0-0.012) X10*3/uL Nucleated RBC % (auto) (0.0-0.2) /100WBC PT (10.0-13.1) SEC INR (0.9-1.1) APTT (26.0-36.4) SEC Sodium (135-145) mmol/L Potassium (3.3-5.1) mmol/L Chloride (96-108) mmol/L Carbon Dioxide (22-29) mmol/L Anion Gap (12-20) BUN (9-16) mg/dL Creatinine (0.5-1.4) mg/dL Estim Creat Clear Calc Estimated GFR Random Glucose (60-115) mg/dL Calcium (8.4-10.2) mg/dL Total Bilirubin (0.0-1.0) mg/dL AST (5-37) U/L ALT (0-40) U/L Alkaline Phosphatase (39-117) U/L Troponin I High Sens 2.9 (<3.5-35.0) ng/L Total Protein (6.5-8.0) g/dL Albumin (3.5-5.0) g/dL Independent Interpretation I performed an independent interpretation of an: EKG Interpretation: My interpretation of the patient's 12 EKG done at 21:10 hours is as follows: The baseline is wondering secondary to the patient's anxiety/tremors. Normal sinus rhythm rate of 74, normal SC interval, QRS duration QTC interval, no ST segment elevation, no ST segment depression, no PACs, no PVCs. Radiology Impression Discussion of test interpretation with radiology: I have reviewed the radiologist's reading. Radiologist Impression: CT brain without IV contrast. No acute intracranial abnormalities. Dictated By:Hussain Godoy MD Discharge Plan Discharge Clinical Impression: Dizziness, Essential (primary) hypertension Acute headache Qualifiers: Intractability: not intractable Nausea & vomiting Qualifiers: Vomiting type: unspecified Qualified Code(s): R11.2 - Nausea with vomiting, unspecified Patient Disposition: Home, Self-Care Instructions: Acute Headache (ED) Additional Instructions: Your complete blood count, comprehensive metabolic panel was normal except for slight elevation in to liver tests. Your AST was 44 (normal is 5-37) Your ALT was 69 (normal is 0 -40) When you see your doctor and you get blood work again you should make sure that a repeat your liver test. Your EKG was normal The CT scan of your brain without IV contrast was normal which is reassuring. I am increasing your amlodipine from 5 mg once a day to 10 mg once a day. After we make a change in your blood pressure medications it may take 4-6 weeks before your blood pressure gets better. I want you to take your blood pressures on Wednesdays and Wednesday mornings for the next 2-4 weeks. Do not worry about any of the blood pressure readings, write them down and make a follow-up appointment with your doctor to discuss these blood pressure readings and to determine if you need any further changes in your blood pressure medications The goal is to get your blood pressure as close to a normal range is possible over your life time it sometimes takes several months to get your blood pressure under control. Continue taking all of your other medications as prescribed by your doctor. Please return to the emergency department if your symptoms get worse or if you develop any symptoms that are concerning to you. Prescriptions: New amlodipine 10 mg tablet 10 mg PO DAILY Qty: 30 0RF No Action atorvastatin 20 mg tablet 20 mg PO BEDTIME 90 Days Qty: 90 1RF fluticasone propion-salmeterol [Advair Diskus] 250-50 mcg/dose blister with device 1 inh inhalation BID Qty: 60 1RF albuterol sulfate 90 mcg/actuation aero powdr breath act w/sensor 1 inh inhalation Q4-6H PRN (Reason: shortness of breath or wheezing) Qty: 1 0RF allopurinol 100 mg tablet 100 mg PO DAILY 30 Days Qty: 30 2RF losartan 25 mg tablet 25 mg PO DAILY 90 Days Qty: 90 1RF amlodipine 5 mg tablet 5 mg PO DAILY Qty: 30 0RF cyclobenzaprine 10 mg tablet 10 mg PO TID PRN (Reason: muscle spasm) Qty: 10 0RF ibuprofen 600 mg tablet 600 mg PO Q8H PRN (Reason: pain) Qty: 30 0RF colchicine 0.6 mg tablet 0.6 mg PO DAILY Qty: 30 0RF indomethacin 50 mg capsule 50 mg PO TID PRN (Reason: gout flare) 20 Days Qty: 60 0RF Rx Instructions: administer with food or milk citalopram 20 mg tablet 20 mg PO DAILY 90 Days Qty: 90 0RF hydroxyzine pamoate 25 mg capsule 25 mg PO DAILY 30 Days Qty: 30 3RF
[2023-03-07] MEDS: Ketorolac Tromethamine 15 MG/ML VIAL IVPUSH (21:10)
[2023-03-07] MEDS: Metoclopramide HCl 10 MG/2 ML VIAL IVPUSH (21:10)
[2023-03-07] MEDS: amLODIPine Besylate 5 MG TABLET PO (21:14)
[2023-03-07 21:24] LABS: MANUAL DIFF FLAG NO
[2023-03-07 21:28] LABS: Basophils Absolute Auto 0.1 X10*3/uL (0.0-0.2); Eosinophils Absolute Auto 0.1 X10*3/uL (0.0-0.4); Eosinophils Percent Auto 1.9 % (0-4); Hematocrit 44.1 % (42.0-52.0); Hemoglobin 15.2 g/dl (14.0-18.0); Imm Gran Abs Auto 0.04 X10*3/uL (0.00-0.03); Imm Gran Pct Auto 0.6 % (0.0-0.4); Lymphocytes Absolute Auto 2.1 X10*3/uL (1.2-4.9); Mean Corpuscular HGB Conc 34.5 g/dl (31.0-36.0); Mean Corpuscular Hemoglobin 29.7 pg (27.0-33.0); Mean Corpuscular Volume 86.1 fL (80.0-98.0); Monocytes Absolute Auto 0.8 X10*3/uL (0.1-1.2); Monocytes Percent Auto 11.6 % (2-11); Neutrophils Absolute Auto 3.8 x10*3/uL (2.0-8.3); Neutrophils Percent Auto 54.9 % (45-73); Platelet Count 248 X10*3/uL (160-400); Red Blood Count 5.12 X10*6/uL (4.60-5.80); Red Cell Distribution Width 13.1 % (11.0-16.0)
[2023-03-07 21:38] LABS: Prothrombin Time 11.3 SEC (10.0-13.1)
[2023-03-07 21:40] LABS: Alanine Aminotransferase 69 U/L (0-40); Albumin Level 4.7 g/dL (3.5-5.0); Alkaline Phosphatase 112 U/L (39-117); Anion Gap 17 (12-20); Aspartate Amino Transferase 44 U/L (5-37); Bilirubin Total 0.7 mg/dL (0.0-1.0); Blood Urea Nitrogen 15 mg/dL (9-16); Calcium 9.2 mg/dL (8.4-10.2); Carbon Dioxide 23 mmol/L (22-29); Chloride 103 mmol/L (96-108); Creatinine Clr Calc Pharmacy 120.4; Estimated Glomerular Filt Rate > 60; Glucose Random 103 mg/dL (60-115); Partial Thromboplastin Time 26.9 SEC (26.0-36.4); Potassium 4.2 mmol/L (3.3-5.1); Sodium 139 mmol/L (135-145); Total Protein 7.4 g/dL (6.5-8.0)
[2023-03-07 21:47] LABS: Troponin-I High Sensitivity 2.9 ng/L (<3.5-35.0)
[2023-03-07 23:02] VITALS: BP 155/103; PULSE 69; RESP 18; TEMP 36.3; O2SAT 98
== END 2023-03-07 23:13 | disposition home or self-care (01) ==
PROVIDERS: Emergency Provider Emergency Medicine Emergency Medical Services
DX: R42 Dizziness and giddiness (principal); R51.9 Headache, unspecified; I10 Essential (primary) hypertension; R11.2 Nausea with vomiting, unspecified; M25.511 Pain in right shoulder; R94.31 Abnormal electrocardiogram [ECG] [EKG]; Z79.899 Other long term (current) drug therapy
CPT/HCPCS: 36415; 70450; 80053; 84484; 85025; 85610; 85730; 93005; 96374; 96375; 99284; 99285; J1885; J2765

== ENCOUNTER 2023-04-14 09:38 | Emergency (ER) | payer OTHER, SELFPAY ==
--- NOTE | ~2023-04-14 | XR_ITS ---
EXAMINATION: XR KNEE, RIGHT CLINICAL INFORMATION: Swollen pain. No trauma COMPARISON: None available. TECHNIQUE: Four views of the right knee. FINDINGS: Bones and soft tissues are normal. No fracture or joint effusion. Alignment is anatomic. Joint spaces are well maintained. No abnormal soft tissue calcification. XR/XR knee RT 3V IMPRESSION: Unremarkable right knee.
--- NOTE | ~2023-04-14 | US_ITS ---
EXAMINATION: US VENOUS ULTRASOUND WITH DOPPLER LOWER EXTREMITY, RIGHT CLINICAL INFORMATION: Posterior leg pain. COMPARISON: None available. TECHNIQUE: Ultrasound of the deep veins is performed from the hip to the calf with compression sonography and color and pulse Doppler assessment. Spectral analysis with color-flow imaging is performed. FINDINGS: There is normal venous compression and respiratory variation and augmented flow. The visualized common femoral vein, superficial femoral vein, profunda femoral vein, popliteal vein, and the trifurcation region shows no evidence of deep venous thrombosis. There is a small Mckeon's cyst measuring 3.2 x 1.2 x 2.4 cm. If the patient's symptoms persist, followup ultrasound in 5 days 7 days might be of value to exclude proximal propagation from a non-visualized calf vein. US/US venous duplex LE RT IMPRESSION: 1. No DVT demonstrated in the right lower extremity. 2. Small Mckeon's cyst measuring 3.2 cm.
[2023-04-14 10:06] VITALS: BP 138/101; PULSE 102; RESP 15; TEMP 36.6; O2SAT 98; BMI 29.8
[2023-04-14 12:00] VITALS: BP 143/94; PULSE 86; RESP 16; O2SAT 98
--- NOTE | 2023-04-14 13:02 | PC.NURSE ---
pt awaiting US results, vitals stable, no apparent distress,leydi CTM
--- NOTE | 2023-04-14 13:52 | ED.GENADULT ---
HPI - General Adult General Chief complaint: Extremity Injury, Lower Stated complaint: R Knee Swelling Pain No Injury Time Seen by Provider: 04/14/23 11:17 History of Present Illness HPI narrative: patient complains of right knee pain and swelling without injury which started 2 days ago He denies any fever he denies any redness he denies any other joint pains he has no numbness weakness or tingling, it hurts somewhat to walk but he is able to limp comfortably Related Data Previous Rx's Medication Instructions Recorded atorvastatin 20 mg tablet 20 mg PO BEDTIME 90 days #90 tabs 11/17/21 fluticasone 250 mcg-salmeterol 50 1 inh inhalation BID #60 ea 02/25/22 mcg/dose blistr powdr for inhalation (Advair Diskus) albuterol sulfate 90 mcg/actuation 1 inh inhalation Q4-6H PRN 03/01/22 breath activated powder shortness of breath or wheezing #1 inhaler,sensor ea citalopram 20 mg tablet 20 mg PO DAILY 90 days #90 tabs 09/02/22 colchicine 0.6 mg tablet 0.6 mg PO DAILY #30 tabs 09/02/22 hydroxyzine pamoate 25 mg capsule 25 mg PO DAILY 30 days #30 caps 09/02/22 indomethacin 50 mg capsule 50 mg PO TID PRN gout flare 20 09/02/22 days #60 caps allopurinol 100 mg tablet 100 mg PO DAILY 30 days #30 tabs 12/09/22 losartan 25 mg tablet 25 mg PO DAILY 90 days #90 tabs 12/16/22 amlodipine 5 mg tablet 5 mg PO DAILY #30 tabs 01/18/23 cyclobenzaprine 10 mg tablet 10 mg PO TID PRN muscle spasm #10 02/17/23 tabs ibuprofen 600 mg tablet 600 mg PO Q8H PRN pain #30 tabs 02/17/23 amlodipine 10 mg tablet 10 mg PO DAILY #30 tabs 03/07/23 acetaminophen 500 mg tablet 1,000 mg PO QID PRN pain #30 tabs 04/14/23 indomethacin 50 mg capsule 50 mg PO TID pain 5 days #15 caps 04/14/23 oxycodone 5 mg tablet 5 mg PO Q6H PRN pain #14 tabs 04/14/23 prednisone 20 mg tablet 60 mg PO DAILY 4 days #12 tabs 04/14/23 Allergies Allergy/AdvReac Type Severity Reaction Status Date / Time tramadol Allergy Unknown Unknown Verified 04/14/23 10:06 [facility] Past Medical History Source: nursing notes reviewed Medical History Anxiety Asthma Gout HTN (hypertension) Mild depression PTSD (post-traumatic stress disorder) Surgical History History of surgery Family History Family History Father Diabetes mellitus HTN (hypertension) Mother HTN (hypertension) Anxiety Sister HTN (hypertension) Brother Sleep apnea Maternal Grandmother History of heart attack Breast cancer Brain aneurysm Maternal Grandfather No problems noted. Paternal Grandfather No problems noted. Paternal Grandmother Diabetes mellitus CVD (cardiovascular disease) Other Mental health disorder Social History Social History Alcohol intake: current Alcohol intake frequency: a few times a week Alcohol type: beer Patient Tobacco Use Status: Never used Tobacco Smoked in Last 30 Days: No e-Cigarette/Vaping Use: Never Used Second Hand Smoke Exposure: No Use of substances other than those prescribed or required for medical reasons: No Advance Directives: No Advance Directives Information Provided: Yes service: No Cognitive needs: No Hearing needs: No Vision needs: Yes (Glasses) Physical Exam ED Vital Signs: Vital Signs - 24 hr 04/14/23 10:06 04/14/23 12:00 Temperature 98 F Pulse Rate 102 H 86 Respiratory Rate 15 16 Blood Pressure 138/101 H 143/94 H Pulse Oximetry 98 98 Oxygen Delivery Method Room Air Room Air BMI result Body Mass Index 29.8 general appearance no distress Head is normocephalic atraumatic Neck is supple Respiratory no distress The right knee is somewhat swollen it extends is to 188 flexes to about 90 degrees, he can bear weight walking with a limp, there is no redness or warmth to the joint, no ligamentous laxity, he can do a straight leg raise There is no calf tenderness or swelling Other extremities normal Skin no rash No focal motor sensory deficits Course Course Course Narrative: x-ray of the right knee was negative, patient with a history of gout is likely having a flare of gout with some swelling in his right knee he is treated for gout and written for some pain medication and was discharged from the emergency room Septic joint very unlikely as there is no redness no warmth that extends comfortably to 180 and he can bear weight comfortably Medications Administered Discontinued Medications Generic Name Dose Route Start Last Admin Trade Name Freq PRN Reason Stop Dose Admin Acetaminophen 975 mg 04/14/23 14:30 04/14/23 14:33 Acetaminophen 325 Mg Tablet PO 04/14/23 14:31 975 mg ONCE ONE Administration Prednisone 60 mg 04/14/23 14:29 04/14/23 14:33 Prednisone 20 Mg Tablet PO 04/14/23 14:30 60 mg ONCE ONE Administration Discharge Plan Discharge Clinical Impression: Gout Patient Disposition: Home, Self-Care Additional Instructions: the pain and swelling in your right knee is likely a gout flare We are treating with prednisone Indocin and pain medicine Follow with her doctor Return any time for any worse condition or any concerns Ultrasound of your leg showed the small Mckeon cyst but no blood clot, x-ray did not show any acute abnormalities Prescriptions: New indomethacin 50 mg capsule 50 mg PO TID 5 Days Qty: 15 0RF Rx Instructions: administer with food or milk prednisone 20 mg tablet 60 mg PO DAILY 4 Days Qty: 12 0RF acetaminophen 500 mg tablet 1,000 mg PO QID PRN (Reason: pain) Qty: 30 0RF oxycodone 5 mg tablet 5 mg PO Q6H PRN (Reason: pain) Qty: 14 0RF Rx Instructions: Partial Fill upon patient request. No Action atorvastatin 20 mg tablet 20 mg PO BEDTIME 90 Days Qty: 90 1RF fluticasone propion-salmeterol [Advair Diskus] 250-50 mcg/dose blister with device 1 inh inhalation BID Qty: 60 1RF albuterol sulfate 90 mcg/actuation aero powdr breath act w/sensor 1 inh inhalation Q4-6H PRN (Reason: shortness of breath or wheezing) Qty: 1 0RF allopurinol 100 mg tablet 100 mg PO DAILY 30 Days Qty: 30 2RF losartan 25 mg tablet 25 mg PO DAILY 90 Days Qty: 90 1RF amlodipine 5 mg tablet 5 mg PO DAILY Qty: 30 0RF cyclobenzaprine 10 mg tablet 10 mg PO TID PRN (Reason: muscle spasm) Qty: 10 0RF ibuprofen 600 mg tablet 600 mg PO Q8H PRN (Reason: pain) Qty: 30 0RF amlodipine 10 mg tablet 10 mg PO DAILY Qty: 30 0RF colchicine 0.6 mg tablet 0.6 mg PO DAILY Qty: 30 0RF indomethacin 50 mg capsule 50 mg PO TID PRN (Reason: gout flare) 20 Days Qty: 60 0RF Rx Instructions: administer with food or milk citalopram 20 mg tablet 20 mg PO DAILY 90 Days Qty: 90 0RF hydroxyzine pamoate 25 mg capsule 25 mg PO DAILY 30 Days Qty: 30 3RF Stand Alone Forms: Work/School Release Interventions: ED Discharge Assessment Last Done: 04/14/23 14:42 ED Discharge Assessment Last Done: 04/14/23 14:43 Discharge Date/Time: 04/14/23 14:43
[2023-04-14] MEDS: Acetaminophen 325 MG TABLET 975 MG PO (14:33)
[2023-04-14] MEDS: predniSONE 20 MG TABLET 60 MG PO (14:33)
== END 2023-04-14 14:43 | disposition home or self-care (01) ==
PROVIDERS: Emergency Provider Emergency Medicine Emergency Medical Services
DX: M10.9 Gout, unspecified (principal); M25.561 Pain in right knee; I10 Essential (primary) hypertension; Z79.02 Long term (current) use of antithrombotics/antiplatelets; Z79.899 Other long term (current) drug therapy
CPT/HCPCS: 73562; 93971; 99284

== ENCOUNTER 2023-06-17 09:43 | Outpatient (REF) | payer OTHER, SELFPAY ==
--- NOTE | ~2023-06-17 | CT_ITS ---
EXAMINATION: CT ABDOMEN WITHOUT AND WITH CONTRAST CLINICAL INFORMATION: Cyst of kidney acquired COMPARISON: Ultrasound abdomen from 12/12/2021 TECHNIQUE: Contiguous axial thin section helical images of the abdomen were performed before and after the administration of 85 mL of Omnipaque 350 intravenous contrast. The data set was reformatted in the coronal and sagittal planes and reviewed on an independent workstation. This CT examination was performed using dose optimization techniques as appropriate, variously including the following: *Automated exposure control *Adjustment of mA and/or kV according to patient size (this includes techniques or standardized protocols for targeted exams where dose is matched to indication/reason for exam; i.e. extremities or head) *Use of iterative reconstruction technique DLP: 513 mGy-cm FINDINGS: LUNGS BASES: The lungs are clear with no evidence of inflammation or nodules. LIVER, GALLBLADDER, AND BILIARY TREE: Liver is mildly enlarged and demonstrates decreased hepatic attenuation suggesting hepatic steatosis. No focal hepatic lesion or biliary ductal dilatation is present. The gallbladder is decompressed, limiting evaluation. PANCREAS: Unremarkable. SPLEEN: Unremarkable. ADRENAL GLANDS: Unremarkable. KIDNEYS AND URETERS: Subcentimeter hypodense focus in the medial aspect of the right renal interpolar region, too small to characterize though statistically representing a cyst. Left renal parapelvic hypodense focus demonstrating fluid attenuation without evidence of enhancement suggesting a simple cyst measuring up to 4.4 cm, not requiring follow-up. The kidneys are normal in size, shape, and attenuation. No hydronephrosis, hydroureter, or calculi seen. No perinephric stranding. GASTROINTESTINAL TRACT: The small and large bowel are unremarkable. The appendix is unremarkable. ABDOMINAL WALL: Small fat filled umbilical hernia. LYMPH NODES: Normal. VASCULAR: Unremarkable. OSSEOUS STRUCTURES: Grade 1 retrolisthesis of L5 on S1. Mild multilevel degenerative changes of the thoracolumbar spine. CT/CT abdomen wo/w IV con IMPRESSION: 1. Left renal parapelvic hypodense focus demonstrating fluid attenuation without evidence of enhancement suggesting a simple cyst measuring up to 4.4 cm, not requiring follow-up. 2. Subcentimeter hypodense focus in the medial aspect of the right renal interpolar region, too small to characterize though statistically representing a cyst. 3. Mildly enlarged liver with decreased hepatic attenuation suggesting hepatic steatosis. 4. Grade 1 retrolisthesis of L5 on S1.
[2023-06-17] MEDS: iohexoL 350 MG/ML 100 ML INFUS..BTL 85 ML IV (10:19)
== END 2023-06-17 09:44 | disposition home or self-care (01) ==
LOC: HO.CT 09:43
PROVIDERS: Visit Provider Urology
DX: N28.1 Cyst of kidney, acquired (principal)
CPT/HCPCS: 74170; Q9967

== ENCOUNTER 2023-07-01 13:30 | Outpatient (AMB) | payer OTHER, SELFPAY ==
--- NOTE | 2023-07-01 12:09 | A.OFFVIS_ITS ---
Intake Intake Visit Reasons: 4m/CT(?) Intake Note: Patient presents today for a follow-up on CT results, completed on 06/17/2023: Meds- None Allergies to Antibiotic- No Known Allergies Blood Thinner- None Internet Marketing Intern Required: No Accompanied by: Self / Same As Patient Allergies tramadol Allergy (Unknown, Verified 07/01/23 13:30) Unknown HPI HPI Comments History of Present Illness Details Keith is a 42-year-old gentleman who is a televisit fu for evaluation for renal cyst. 07/01/2023-- He was last seen by me on 02/03/2023. I reviewed previous imaging-abdominal ultrasound November 2021, 2.7 cm left renal cyst with septation. I discussed classifications of Cysts, and that the cyst meets the criteria of type 2 on ultrasound in that we will get a CT scan for further evaluation. He had a CT scan done on 06/17/2023 - I have discussed that findings are consistent with simple cyst. Plan: CT findings c/w Simple renal cyst, no further imaging fu indicated Follow up prn. [facility] Medical History Anxiety Asthma Gout HTN (hypertension) Mild depression PTSD (post-traumatic stress disorder) Surgical History History of surgery Family History Father Diabetes mellitus HTN (hypertension) Mother HTN (hypertension) Anxiety Sister HTN (hypertension) Brother Sleep apnea Maternal Grandmother History of heart attack Breast cancer Brain aneurysm Maternal Grandfather No problems noted. Paternal Grandfather No problems noted. Paternal Grandmother Diabetes mellitus CVD (cardiovascular disease) Other Mental health disorder Social History Alcohol intake: current Alcohol intake frequency: a few times a week Alcohol type: beer Patient Tobacco Use Status: Never used Tobacco e-Cigarette/Vaping Use: Never Used Second Hand Smoke Exposure: No service: No Cognitive needs: No Hearing needs: No Vision needs: Yes (Glasses) Review of Systems Const All systems reviewed & are unremarkable except as noted in HPI and below Reports no additional complaints Eyes Reports no additional complaints ENT Denies neck pain Card Denies leg edema Resp Denies cough GI Denies constipation Musc Reports no additional complaints and Denies neck pain Skin/Breast Denies rash and Denies unusual bruising Neuro Reports no additional complaints Psych Reports no additional complaints Endo Reports no additional complaints Srikanth/Lymph Reports no additional complaints Aller/Immun Reports no additional complaints Results Reviewed Results Reviewed: Date of Service: 06/17/23 EXAMINATION: CT ABDOMEN WITHOUT AND WITH CONTRAST CLINICAL INFORMATION: Cyst of kidney acquired? COMPARISON: Ultrasound abdomen from 12/12/2021 FINDINGS: LUNGS BASES: The lungs are clear with no evidence of inflammation or nodules.? LIVER, GALLBLADDER, AND BILIARY TREE: Liver is mildly enlarged and demonstrates decreased hepatic attenuation suggesting hepatic steatosis. No focal hepatic lesion or biliary ductal dilatation is present. The gallbladder is decompressed, limiting evaluation. PANCREAS: Unremarkable.? SPLEEN: Unremarkable.? ADRENAL GLANDS: Unremarkable.? KIDNEYS AND URETERS: Subcentimeter hypodense focus in the medial aspect of the right renal interpolar region, too small to characterize though statistically representing a cyst. Left renal parapelvic hypodense focus demonstrating fluid attenuation without evidence of enhancement suggesting a simple cyst measuring up to 4.4 cm, not requiring follow-up. The kidneys are normal in size, shape, and attenuation. No hydronephrosis, hydroureter, or calculi seen. No perinephric stranding. ? GASTROINTESTINAL TRACT: The small and large bowel are unremarkable. The appendix is unremarkable.? ABDOMINAL WALL: Small fat filled umbilical hernia.? LYMPH NODES: Normal. VASCULAR: Unremarkable. OSSEOUS STRUCTURES: Grade 1 retrolisthesis of L5 on S1. Mild multilevel degenerative changes of the thoracolumbar spine.? IMPRESSION: 1.? Left renal parapelvic hypodense focus demonstrating fluid attenuation without evidence of enhancement suggesting a simple cyst measuring up to 4.4 cm, not requiring follow-up. 2.? Subcentimeter hypodense focus in the medial aspect of the right renal interpolar region, too small to characterize though statistically representing a cyst. 3.? Mildly enlarged liver with decreased hepatic attenuation suggesting hepatic steatosis. 4.? Grade 1 retrolisthesis of L5 on S1. Assessment & Plan Assessment & Plan (1) Simple renal cyst: Code(s): N28.1 - Cyst of kidney, acquired Plan CT findings c/w Simple renal cyst, no further imaging fu indicated Follow up prn. Patient Instructions: The patient had an opportunity to ask questions regarding treatment plan. All questions were answered. Imaging, Laboratory studies and physical exam results were discussed and reviewed in detail. No major barriers to understanding were identified. The patient expressed understanding and agreement with the above treatment plan.? ? ? The patient is aware they should contact our office by phone for worsening of their current condition or the appearance of new symptoms. Compliance is encouraged with any medications and followup testing that is ordered.? ? ? It is a privilege to be allowed the opportunity to participate in the urologic care of your patient. If you have any questions or concerns regarding treatment for the above conditions please do not hesitate to contact me. The office telephone contact is [phone].? ? ? This note is constructed in part using voice recognition software. While every e ffort has been made to ensure accuracy filament coil winder errors may have been included.? ? ? Yours sincerely,? ? ? Angélica Birch MD? Telehealth Telehealth Location of provider rendering services: practice address Location of patient: address on file Patient Identification confirmed using: Name, : Yes Telehealth method: voice only Patient verbally consented to treatment: Yes Patient verbally consented to billing insurance company: Yes Patient informed of any privacy concerns related to visit: Yes Minutes spent on Phone/Video with Pt.: 15 Coding Level of Care Code Tele Est Pt Level 3 (52400) Diagnoses Simple renal cyst N28.1
== END 2023-07-01 14:35 | disposition home or self-care (01) ==
PROVIDERS: Visit Provider Urology
DX: N28.1 Cyst of kidney, acquired (principal)
CPT/HCPCS: 99213

== ENCOUNTER → 2023-07-01 13:30 | Outpatient (BNVA) | payer SELFPAY | PROVIDERS: Visit Provider Urology ==

== ENCOUNTER 2023-11-14 05:40 | Emergency (ER) | payer SELFPAY ==
--- NOTE | 2023-11-14 | ECG_ITS ---
Test Reason : CHEST PAIN Blood Pressure : / mmHG Vent. Rate : 099 BPM Atrial Rate : 099 BPM P-R Int : 142 ms QRS Dur : 088 ms QT Int : 326 ms P-R-T Axes : 020 -26 022 degrees QTc Int : 418 ms Normal sinus rhythm Minimal voltage criteria for LVH, may be normal variant ( [place] product ) Borderline ECG When compared with ECG of 07-MAR-2023 21:10, ST no longer depressed in Inferior leads Nonspecific T wave abnormality, worse in Inferior leads Nonspecific T wave abnormality, improved in Lateral leads Referred By: Generic ED Physician Electronically Signed By:JAMAR GRANDE MD
--- NOTE | ~2023-11-14 | US_ITS ---
EXAMINATION: US VENOUS ULTRASOUND WITH DOPPLER LOWER EXTREMITY, LEFT CLINICAL INFORMATION: Swelling. Pain. Edema. COMPARISON: Right lower extremity venous ultrasonography 04/14/2023, left lower extremity venous ultrasonography 06/23/2022. TECHNIQUE: Ultrasound of the deep veins is performed from the hip to the calf with compression sonography and color and pulse Doppler assessment. Spectral analysis with color-flow imaging is performed. FINDINGS: There is normal venous compression and respiratory variation and augmented flow. The visualized common femoral vein, superficial femoral vein, profunda femoral vein, popliteal vein, and the trifurcation region shows no evidence of deep venous thrombosis. There is no significant popliteal fossa cyst. If the patient's symptoms persist, followup ultrasound in 5 days 7 days might be of value to exclude proximal propagation from a non-visualized calf vein. US/US venous duplex LE LT IMPRESSION: No DVT demonstrated in the left lower extremity.
--- NOTE | ~2023-11-14 | XR_ITS ---
EXAMINATION: XR CHEST CLINICAL INFORMATION: Chest pain COMPARISON: Chest radiograph 01/18/2023 TECHNIQUE: 2 views of the chest were obtained. FINDINGS: Multiple external artifacts overlie the thorax. Normal appearance of the cardiomediastinal structures. No effusions or pneumothoraces. A normal pattern of pulmonary vasculature. No focal pulmonary consolidation. No skeletal abnormalities identified. XR/XR chest 2V IMPRESSION: Normal chest.
--- NOTE | 2023-11-14 05:45 | PC.NURSE ---
pt out of building to his car to get medication ekg delayed
[2023-11-14 05:47] VITALS: BP 164/116; PULSE 106; RESP 16; TEMP 36.4; O2SAT 98; BMI 29.3
[2023-11-14 06:18] LABS: Basophils Absolute Auto 0.1 X10*3/uL (0.0-0.2); Basophils Percent Auto 0.8 % (0-2); Eosinophils Absolute Auto 0.3 X10*3/uL (0.0-0.4); Eosinophils Percent Auto 4.1 % (0-4); Hematocrit 46.8 % (42.0-52.0); Hemoglobin 15.6 g/dl (14.0-18.0); Imm Gran Abs Auto 0.04 X10*3/uL (0.00-0.03); Imm Gran Pct Auto 0.6 % (0.0-0.4); Lymphocytes Percent Auto 29.8 % (20-40); MANUAL DIFF FLAG NO; Mean Corpuscular HGB Conc 33.3 g/dl (31.0-36.0); Mean Corpuscular Hemoglobin 28.7 pg (27.0-33.0); Mean Corpuscular Volume 86.2 fL (80.0-98.0); Mean Platelet Volume 10.3 fL (9.4-12.4); Monocytes Absolute Auto 0.8 X10*3/uL (0.1-1.2); Monocytes Percent Auto 11.9 % (2-11); Neutrophils Absolute Auto 3.5 x10*3/uL (2.0-8.3); Neutrophils Percent Auto 52.8 % (45-73); Platelet Count 240 X10*3/uL (160-400); Red Blood Count 5.43 X10*6/uL (4.60-5.80); Red Cell Distribution Width 13.8 % (11.0-16.0); White Blood Count 6.6 X10*3/uL (4.8-10.8)
[2023-11-14 06:24] LABS: INTERNATIONAL NORM RATIO 0.9 (0.9-1.1); Prothrombin Time 10.4 SEC (11.1-13.3)
[2023-11-14 06:33] LABS: Alanine Aminotransferase 49 U/L (0-40); Albumin Level 4.4 g/dL (3.5-5.0); Alkaline Phosphatase 111 U/L (39-117); Anion Gap 15 (12-20); Aspartate Amino Transferase 40 U/L (5-37); Bilirubin Total 0.2 mg/dL (0.0-1.0); Blood Urea Nitrogen 12 mg/dL (9-16); Calcium 8.9 mg/dL (8.4-10.2); Carbon Dioxide 22 mmol/L (22-29); Chloride 105 mmol/L (96-108); Creatinine Clr Calc Pharmacy 128.2; Estimated Glomerular Filt Rate > 60; Glucose Random 127 mg/dL (60-115); Sodium 138 mmol/L (135-145); Total Protein 7.7 g/dL (6.5-8.0)
[2023-11-14 06:41] LABS: Troponin-I High Sensitivity 4.9 ng/L (<3.5-35.0)
--- NOTE | 2023-11-14 06:43 | ED.GENADULT ---
HPI - General Adult General Chief complaint: General Medical Stated complaint: chest pressure Time Seen by Provider: 11/14/23 06:27 Source: patient Mode of arrival: ambulatory Limitations: no limitations History of Present Illness HPI narrative: 43-year-old male with a history of anxiety, hypertension, hyperlipidemia, gout here with complaints of waking with chest pressure right greater than left at 05:00 which is constant in nature with no associated shortness of breath, diaphoresis or vomiting. Patient reports feeling anxious. Patient denies any recent URI symptoms. No associated vomiting or diarrhea. No sick contact. No recent travel, hospitalizations or surgeries. Patient reports family history of DVT. He is having left lower extremity swelling which she noticed this morning with waking with no associated pain, redness. Related Data Previous Rx's Medication Instructions Recorded atorvastatin 20 mg tablet 20 mg PO BEDTIME 90 days #90 tabs 11/17/21 fluticasone 250 mcg-salmeterol 50 1 inh inhalation BID #60 ea 02/25/22 mcg/dose blistr powdr for inhalation (Advair Diskus) albuterol sulfate 90 mcg/actuation 1 inh inhalation Q4-6H PRN 03/01/22 breath activated powder shortness of breath or wheezing #1 inhaler,sensor ea colchicine 0.6 mg tablet 0.6 mg PO DAILY #30 tabs 09/02/22 allopurinol 100 mg tablet 100 mg PO DAILY 30 days #30 tabs 12/09/22 losartan 25 mg tablet 25 mg PO DAILY 90 days #90 tabs 12/16/22 amlodipine 5 mg tablet 5 mg PO DAILY #30 tabs 01/18/23 cyclobenzaprine 10 mg tablet 10 mg PO TID PRN muscle spasm #10 02/17/23 tabs ibuprofen 600 mg tablet 600 mg PO Q8H PRN pain #30 tabs 02/17/23 acetaminophen 500 mg tablet 1,000 mg (2 x 500 mg) PO QID PRN 04/14/23 pain #30 tabs indomethacin 50 mg capsule 50 mg PO TID pain 5 days #15 caps 04/14/23 citalopram 20 mg tablet 20 mg PO DAILY 90 days #90 tabs 05/28/23 hydroxyzine pamoate 25 mg capsule 25 mg PO DAILY #90 caps 07/18/23 amlodipine 10 mg tablet 10 mg PO DAILY #90 tabs 09/27/23 Allergies Allergy/AdvReac Type Severity Reaction Status Date / Time tramadol Allergy Unknown Unknown Verified 11/14/23 05:50 Review of Systems Review of Systems: Yes all other systems are reviewed and are negative Constitutional: Constitutional: Reports no additional constitutional complaints, Denies body ache(s), Denies chills, Denies fever(s), Denies headache(s) and Denies weakness Eyes: Eyes: Reports no additional eye complaints and Denies change in vision ENT: Reports system reviewed and no additional complaints, except as documented, Denies dizziness, Denies headache(s), Denies nasal congestion, Denies nasal discharge and Denies neck pain Cardiovascular: Cardiovascular: Reports no additional cardiovascular complaints, Reports chest pain, Reports leg edema and Denies dyspnea Respiratory: Respiratory: Reports no additional respiratory complaints, Denies cough and Denies dyspnea Gastrointestinal: Gastrointestinal: Reports no additional gastrointestinal complaints, Denies abdominal pain, Denies diarrhea, Denies nausea and Denies vomiting Genitourinary: Genitourinary: Denies urinary incontinence Musculoskeletal: Musculoskeletal: Reports no additional musculoskeletal complaints, Denies back pain, Denies arthralgias, Denies joint swelling, Denies neck pain, Denies numbness and Denies tingling Integumentary/Breasts: Skin/Breast: Reports system reviewed and no additional complaints, except as docu and Denies rash Neurologic: Reports system reviewed and no additional complaints, except as documented, Denies Abnormal speech present, Denies dizziness, Denies headache(s), Denies numbness, Denies tingling and Denies weakness PMFSH Past Medical History Attestation statement: The following information was validated with the patient. Source: old records reviewed and nursing notes reviewed Medical History Gout Asthma PTSD (post-traumatic stress disorder) Mild depression Anxiety HTN (hypertension) Surgical History History of surgery Family History Family History Father Diabetes mellitus HTN (hypertension) Mother HTN (hypertension) Anxiety Sister HTN (hypertension) Brother Sleep apnea Maternal Grandmother History of heart attack Breast cancer Brain aneurysm Maternal Grandfather No problems noted. Paternal Grandfather No problems noted. Paternal Grandmother Diabetes mellitus CVD (cardiovascular disease) Other Mental health disorder Social History Social History Alcohol intake: current Alcohol intake frequency: a few times a week Alcohol type: beer Patient Tobacco Use Status: Never used Tobacco e-Cigarette/Vaping Use: Never Used Second Hand Smoke Exposure: No Advance Directives: No Advance Directives Information Provided: No service: No Cognitive needs: No Hearing needs: No Vision needs: Yes (Glasses) Physical Exam ED Vital Signs: Vital Signs - 24 hr 11/14/23 05:47 11/14/23 07:16 11/14/23 10:08 Temperature 97.5 F 98.1 F Pulse Rate 106 H 100 99 Respiratory Rate 16 22 H 16 Blood Pressure 164/116 H 140/105 H 150/109 H Pulse Oximetry 98 97 97 Oxygen Delivery Method Room Air Room Air Room Air BMI result Body Mass Index 29.3 Const General: cooperative, healthy appearing, comfortable and no acute distress Orientation/consciousness: patient oriented x3 Limitations: no limitations HENMT Head: Yes normal to inspection Ears: hearing grossly normal bilaterally General nose exam: Normal external nose present Face and sinus: Yes normal facial exam Mouth: Normal oral and palatal mucosa present Throat: Yes posterior oropharynx normal Eyes General: appearance normal, both eyes and all related structures Pupils: Equal, round and reactive pupils present Neck Neck: Yes normal visual inspection Chest Chest palpation & inspection: normal inspection of the chest Resp Effort & Inspection: normal respiratory effort Auscultation: clear to auscultation bilaterally Cardio Rate: regular rate Rhythm: regular rhythm Peripheral pulses: Peripheral pulses 2+ throughout GI Inspection: Yes normal to inspection Palpation (GI): Soft to palpation and nontender Auscultation: normal bowel sounds Back/Spine/Pelvis Thoracic/Lumbar Spine: thoracic and lumbar spine normal to inspection Skin General skin exam: no rashes or lesions noted Neuro General: patient oriented x3, no focal motor deficits and normal sensation to monofilament Cranial nerves: Yes Equal, round and reactive pupils present Cognition (Neuro): normal cognition Speech: No Abnormal speech present Gait exam (Neuro): Normal gait present Motor exam (neuro): 5/5 motor strength present throughout Extrem Other: Slight swelling noticed the left lower extremity-no warmth, erythema No pain on palpation Normal DP and PT pulses Course Course Course Narrative: Labs included troponin x2 are negative. Chest x-ray is unremarkable. EKG is nonischemic. Venous ultrasound of left lower extremity is negative for DVT. Patient reports improvement of symptoms after receiving lorazepam. Plan for discharge home. Reviewed worrisome signs and symptoms of when to return to the emergency room. Comfortable plan for discharge home Medications Administered Discontinued Medications Generic Name Dose Route Start Last Admin Trade Name Asad PRN Reason Stop Dose Admin Lorazepam 1 mg 11/14/23 06:43 11/14/23 07:15 Lorazepam 2 Mg/Ml Vial IVPUSH 11/14/23 06:44 1 mg STAT STA Administration Medical Decision Making Medical Decision Making [facility] Narrative: 43-year-old male with a history of anxiety, hypertension, hyperlipidemia, gout here with complaints of waking with chest pressure right greater than left at 05:00 which is constant in nature with no associated shortness of breath, diaphoresis or vomiting.? Patient reports feeling anxious.? Patient denies any recent URI symptoms.? No associated vomiting or diarrhea.? No sick contact.? No recent travel, hospitalizations or surgeries.? Patient reports family history of DVT.? He is having left lower extremity swelling which she noticed this morning with waking with no associated pain, redness.? Lungs are clear. Abdomen soft nontender. There is slight swelling noted to the left lower extremity with no pain on palpation and normal CMS. Vitals are stable. Will obtain labs with troponin x2, EKG, chest x-ray, COVID screen, left lower extremity ultrasound. Will give lorazepam IV and reassess Differential Diagnosis Differential Diagnoses: The differential diagnosis associated with the presentation includes Anxiety, DVT, PE, ACS, aortic dissection Admission/Observation Consideration of admission/observation: Escalation of care including admission/observation considered History of present illness is not consistent with ACS. Patient has had 2 flat troponins and a nonischemic EKG so I have low concern for ACS and do not feel he would qualify for admission Lab Data MDM Lab Attestation statement: I reviewed the patient's lab results. 11/14/23 06:10 11/14/23 06:10 Labs: Lab Results 11/14/23 11/14/23 11/14/23 Range/Units 06:10 08:24 09:25 WBC 6.6 (4.8-10.8) X10*3/uL RBC 5.43 (4.60-5.80) X10*6/uL Hgb 15.6 (14.0-18.0) g/dl Hct 46.8 (42.0-52.0) % MCV 86.2 (80.0-98.0) fL MCH 28.7 (27.0-33.0) pg MCHC 33.3 (31.0-36.0) g/dl RDW 13.8 (11.0-16.0) % Plt Count 240 (160-400) X10*3/uL MPV 10.3 (9.4-12.4) fL Immature Gran % (Auto) 0.6 H (0.0-0.4) % Neut % (Auto) 52.8 (45-73) % Lymph % (Auto) 29.8 (20-40) % [place] % (Auto) 11.9 H (2-11) % Eos % (Auto) 4.1 H (0-4) % Baso % (Auto) 0.8 (0-2) % Lymph # (Auto) 2.0 (1.2-4.9) X10*3/uL [place] # (Auto) 0.8 (0.1-1.2) X10*3/uL Eos # (Auto) 0.3 (0.0-0.4) X10*3/uL Baso # (Auto) 0.1 (0.0-0.2) X10*3/uL Abs Immat Gran (auto) 0.04 H (0.00-0.03) X10*3/uL Absolute Neuts (auto) 3.5 (2.0-8.3) x10*3/uL Absolute Nucleated RBC 0.000 (0.0-0.012) X10*3/uL Nucleated RBC % (auto) 0.0 (0.0-0.2) /100WBC PT 10.4 L (11.1-13.3) SEC INR 0.9 (0.9-1.1) D-Dimer High Sensitivty < 150 NG/ML Sodium 138 (135-145) mmol/L Potassium 4.0 (3.3-5.1) mmol/L Chloride 105 (96-108) mmol/L Carbon Dioxide 22 (22-29) mmol/L Anion Gap 15 (12-20) BUN 12 (9-16) mg/dL Creatinine 0.84 (0.5-1.4) mg/dL Estim Creat Clear Calc 128.2 Estimated GFR > 60 Random Glucose 127 H (60-115) mg/dL Calcium 8.9 (8.4-10.2) mg/dL Total Bilirubin 0.2 (0.0-1.0) mg/dL AST 40 H (5-37) U/L ALT 49 H (0-40) U/L Alkaline Phosphatase 111 (39-117) U/L Troponin I High Sens 4.9 D < 2.7 (<3.5-35.0) ng/L B-Natriuretic Peptide < 10 (<100) pg/mL Total Protein 7.7 (6.5-8.0) g/dL Albumin 4.4 (3.5-5.0) g/dL COVID-19 (RENA) Negative (Negative) COVID-19 Clin Com See Note Independent Interpretation I performed an independent interpretation of an: EKG, Plain X-Ray and Ultrasound Interpretation: I independently reviewed the EKG shows normal sinus rhythm with a rate in 99, normal CT, normal QRS, normal QT I independently reviewed the chest x-ray/venous US and agree with the radiology report Radiology Impression Discussion of test interpretation with radiology: I have reviewed the radiologist's reading. Radiologist Impression: [place] [address] XRay Report Signed Patient: Keith Cassidy MR#: [id number] : 1980 Acct:[id number] Age/Sex: 43 / M ADM Date: 11/14/23 Loc: .ED Attending Dr: Ordering Physician: Geno James NP Date of Service: 11/14/23 Procedure(s): XR chest 2V Accession Number(s): [id number] cc: Allegra Raza Alissa NP~ EXAMINATION: XR CHEST CLINICAL INFORMATION: Chest pain COMPARISON: Chest radiograph 01/18/2023 TECHNIQUE: 2 views of the chest were obtained. FINDINGS: Multiple external artifacts overlie the thorax. Normal appearance of the cardiomediastinal structures. No effusions or pneumothoraces. A normal pattern of pulmonary vasculature. No focal pulmonary consolidation. No skeletal abnormalities identified. XR/XR chest 2V IMPRESSION: Normal chest. [address] [address] Ultrasound Report Signed Patient: Keith Cassidy MR#: [id number] : 1980 Acct:[id number] Age/Sex: 43 / M ADM Date: 11/14/23 Loc: HO.ED Attending Dr: Ordering Physician: Geno James NP Date of Service: 11/14/23 Procedure(s): US venous duplex LE LT Accession Number(s): [id number] cc: Allegra Raza Alissa NP~ EXAMINATION: US VENOUS ULTRASOUND WITH DOPPLER LOWER EXTREMITY, LEFT CLINICAL INFORMATION: Swelling. Pain. Edema. COMPARISON: Right lower extremity venous ultrasonography 04/14/2023, left lower extremity venous ultrasonography 06/23/2022. TECHNIQUE: Ultrasound of the deep veins is performed from the hip to the calf with compression sonography and color and pulse Doppler assessment. Spectral analysis with color-flow imaging is performed. FINDINGS: There is normal venous compression and respiratory variation and augmented flow. The visualized common femoral vein, superficial femoral vein, profunda femoral vein, popliteal vein, and the trifurcation region shows no evidence of deep venous thrombosis. There is no significant popliteal fossa cyst. If the patient's symptoms persist, followup ultrasound in 5 days 7 days might be of value to exclude proximal propagation from a non-visualized calf vein. US/US venous duplex LE LT IMPRESSION: No DVT demonstrated in the left lower extremity. Discharge Plan Discharge Clinical Impression: Chest pain Patient Disposition: Home, Self-Care Instructions: Chest Pain (ED) Additional Instructions: Your blood work, EKG, chest x-ray and ultrasound are all reassuring Your viral testing is negative. Please follow-up with your primary care doctor for any persistent symptoms. Prescriptions: No Action atorvastatin 20 mg tablet 20 mg PO BEDTIME 90 Days Qty: 90 1RF fluticasone propion-salmeterol [Advair Diskus] 250-50 mcg/dose blister with device 1 inh inhalation BID Qty: 60 1RF albuterol sulfate 90 mcg/actuation aero powdr breath act w/sensor 1 inh inhalation Q4-6H PRN (Reason: shortness of breath or wheezing) Qty: 1 0RF allopurinol 100 mg tablet 100 mg PO DAILY 30 Days Qty: 30 2RF losartan 25 mg tablet 25 mg PO DAILY 90 Days Qty: 90 1RF citalopram 20 mg tablet 20 mg PO DAILY 90 Days Qty: 90 0RF Rx Instructions: Schedule next PCP appt for future refills hydroxyzine pamoate 25 mg capsule 25 mg PO DAILY Qty: 90 0RF Rx Instructions: Schedule next PCP appt for future refills amlodipine 10 mg tablet 10 mg PO DAILY Qty: 90 0RF Rx Instructions: Schedule next PCP appt for future refills amlodipine 5 mg tablet 5 mg PO DAILY Qty: 30 0RF cyclobenzaprine 10 mg tablet 10 mg PO TID PRN (Reason: muscle spasm) Qty: 10 0RF ibuprofen 600 mg tablet 600 mg PO Q8H PRN (Reason: pain) Qty: 30 0RF indomethacin 50 mg capsule 50 mg PO TID 5 Days Qty: 15 0RF Rx Instructions: administer with food or milk acetaminophen 500 mg tablet 1,000 mg PO QID PRN (Reason: pain) Qty: 30 0RF colchicine 0.6 mg tablet 0.6 mg PO DAILY Qty: 30 0RF Referrals: Allegra Raza [Primary Care Provider] - 1 week Interventions: ED Discharge Assessment Last Done: 11/14/23 10:13
[2023-11-14 06:46] LABS: B Type Natriuretic Peptide < 10 pg/mL (<100)
[2023-11-14] MEDS: LORazepam 2 MG/ML VIAL 1 MG IVPUSH (07:15)
[2023-11-14 07:16] VITALS: BP 140/105; PULSE 100; RESP 22; TEMP 36.7; O2SAT 97
[2023-11-14 07:22] LABS: D Dimer High Sensitivity < 150 NG/ML
--- NOTE | 2023-11-14 07:39 | PC.NURSE ---
ultrasound at bedside
[2023-11-14 08:52] LABS: IDNOW Serial# BCCEAD1C
[2023-11-14 08:53] LABS: COVID-19 Test Negative (Negative)
[2023-11-14 09:54] LABS: Troponin-I High Sensitivity < 2.7 ng/L (<3.5-35.0)
[2023-11-14 10:08] VITALS: BP 150/109; PULSE 99; RESP 16; O2SAT 97
== END 2023-11-14 10:13 | disposition home or self-care (01) ==
PROVIDERS: Internal Medicine; Nurse Practitioner Family; Emergency Provider Student in an Organized Health Care Education/Training Program; PCP Nurse Practitioner Family
DX: R07.9 Chest pain, unspecified (principal); M79.89 Other specified soft tissue disorders; I10 Essential (primary) hypertension; J45.909 Unspecified asthma, uncomplicated; Z11.52 Encounter for screening for COVID-19
CPT/HCPCS: 36415; 71046; 80053; 83880; 84484; 85025; 85379; 85610; 87635; 93005; 93971; 96374; 99284; J2060

== ENCOUNTER → 2023-11-14 05:53 | Outpatient (BNV) | payer SELFPAY | PROVIDERS: Emergency Provider Student in an Organized Health Care Education/Training Program; PCP Nurse Practitioner Family; Visit Provider Internal Medicine Cardiovascular Disease | DX: R07.9 Chest pain, unspecified (principal) | CPT/HCPCS: 93010 ==

== ENCOUNTER 2024-01-03 10:51 | Emergency (ER) | payer SELFPAY ==
--- NOTE | ~2024-01-03 | XR_ITS ---
EXAMINATION: XR KNEE, RIGHT CLINICAL INFORMATION: Right knee pain and swelling. COMPARISON: Right knee radiographs dated 04/14/2023. TECHNIQUE: Four views of the right knee. FINDINGS: No acute fracture or dislocation. No joint space narrowing or marginal osteophytes. No osseous erosion. No abnormal soft tissue calcification. No significant joint effusion. XR/XR knee RT 3V IMPRESSION: Unremarkable examination.
[2024-01-03 11:10] VITALS: BP 157/118; PULSE 109; RESP 18; TEMP 36.6; O2SAT 98; BMI 30.9
--- NOTE | 2024-01-03 11:10 | ED_ITS ---
HPI - General Adult General Chief complaint: Extremity Injury, Lower Stated complaint: knee swelling Time Seen by Provider: 01/03/24 13:05 Source: patient Mode of arrival: ambulatory Limitations: no limitations History of Present Illness HPI narrative: Patient is a 43 year old assigned male at with a history of HTN presenting to the emergency department today with right knee pain. Patient states that over the last day he has noticed some swelling to his right knee as well as pain with movement of the right knee. Patient denies any dizziness, lightheadedness, abdominal pain, nausea, vomiting, fever, chills, blurry vision, double vision, loss of vision, chest pain, difficulty breathing, shortness of breath, back pain, night sweats, pain with urination, increased urinary frequency, increased urinary urgency, blood in his urine or stool, syncope or a near syncopal episode, recent trauma or falls, bowel incontinence, bladder incontinence, bowel retention, bladder retention, or any other complaints at this time. Onset (ago): day(s) Location: right and lower extremity Severity: mild Severity scale (1-10): 2 Quality: aching Pain Consistency: intermittent Relieving factors: immobilization Exacerbating factors: movement Associated symptoms: denies other symptoms Treatments prior to arrival: none Related Data Previous Rx's Medication Instructions Recorded atorvastatin 20 mg tablet 20 mg PO BEDTIME 90 days #90 tabs 11/17/21 fluticasone 250 mcg-salmeterol 50 1 inh inhalation BID #60 ea 02/25/22 mcg/dose blistr powdr for inhalation (Advair Diskus) albuterol sulfate 90 mcg/actuation 1 inh inhalation Q4-6H PRN 03/01/22 breath activated powder shortness of breath or wheezing #1 inhaler,sensor ea colchicine 0.6 mg tablet 0.6 mg PO DAILY #30 tabs 09/02/22 allopurinol 100 mg tablet 100 mg PO DAILY 30 days #30 tabs 12/09/22 losartan 25 mg tablet 25 mg PO DAILY 90 days #90 tabs 12/16/22 amlodipine 5 mg tablet 5 mg PO DAILY #30 tabs 01/18/23 cyclobenzaprine 10 mg tablet 10 mg PO TID PRN muscle spasm #10 02/17/23 tabs ibuprofen 600 mg tablet 600 mg PO Q8H PRN pain #30 tabs 02/17/23 acetaminophen 500 mg tablet 1,000 mg (2 x 500 mg) PO QID PRN 04/14/23 pain #30 tabs indomethacin 50 mg capsule 50 mg PO TID pain 5 days #15 caps 04/14/23 citalopram 20 mg tablet 20 mg PO DAILY 90 days #90 tabs 05/28/23 hydroxyzine pamoate 25 mg capsule 25 mg PO DAILY #90 caps 07/18/23 amlodipine 10 mg tablet 10 mg PO DAILY #90 tabs 08/18/23 Allergies Allergy/AdvReac Type Severity Reaction Status Date / Time tramadol Allergy Unknown Unknown Verified 01/03/24 11:14 Review of Systems Constitutional: Constitutional: Reports no additional constitutional complaints, Denies chills, Denies fever(s) and Denies night sweats Eyes: Eyes: Reports no additional eye complaints, Denies blurry vision, Denies change in vision, Denies diplopia, Denies eye discharge, Denies loss of vision a nd Denies eye pain ENT: Denies dizziness Cardiovascular: Cardiovascular: Reports no additional cardiovascular compla ints, Denies chest pain, Denies lightheadedness, Denies Loss of Consciousness and Denies dyspnea Respiratory: Respiratory: Reports no additional respiratory complaints and Denies dyspnea Gastrointestinal: Gastrointestinal: Reports no additional gastrointestinal complaints, Denies abdominal pain, Denies melena, Denies hematochezia, Denies change in bowel habits and Denies change in stool character Genitourinary: Genitourinary: Reports no additional male genitourinary complaints, Denies hematuria, Denies oliguria, Denies difficulty urinating, Denies dysuria, Denies urinary frequency, Denies urinary hesitancy, Denies urinary incontinence and Denies urinary urgency Musculoskeletal: Musculoskeletal: Reports no additional musculoskeletal complaints, Denies numbness and Denies tingling Comments: right knee pain Neurologic: Denies dizziness, Denies loss of vision, Denies numbness and Denies tingling Psychiatric: Psychiatric: Reports no additional psychiatric complaints Endocrine: Endocrine: Reports no additional endocrine complaints Hematologic/Lymphatic: Hematologic/Lymphatic: Reports no additional hematologic/lymphatic complaints Allergic/Immunologic: Allergic/Immunologic: Reports no additional allergic/immunologic complaints PMFSH Past Medical History Attestation statement: The following information was validated with the patient. Source: old records reviewed and nursing notes reviewed Medical History Acute knee pain Purpura Elevated liver enzymes Gout Asthma PTSD (post-traumatic stress disorder) Mild depression Anxiety HTN (hypertension) Surgical History History of surgery Family History Family History Father Diabetes mellitus HTN (hypertension) Mother HTN (hypertension) Anxiety Sister HTN (hypertension) Brother Sleep apnea Maternal Grandmother History of heart attack Breast cancer Brain aneurysm Maternal Grandfather No problems noted. Paternal Grandfather No problems noted. Paternal Grandmother Diabetes mellitus CVD (cardiovascular disease) Other Mental health disorder Social History Social History Alcohol intake: current Alcohol intake frequency: a few times a week Alcohol type: beer Patient Tobacco Use Status: Never used Tobacco e-Cigarette/Vaping Use: Never Used Second Hand Smoke Exposure: No Advance Directives: No Advance Directives Information Provided: Yes service: No Cognitive needs: No Hearing needs: No Vision needs: Yes (Glasses) Physical Exam ED Vital Signs: Vital Signs - 24 hr 01/03/24 11:10 01/03/24 13:05 Temperature 97.9 F Pulse Rate 109 H 110 H Respiratory Rate 18 15 Blood Pressure 157/118 H 165/117 H Pulse Oximetry 98 97 Oxygen Delivery Method Room Air Room Air BMI result Body Mass Index 30.9 Const General: cooperative, no acute distress, alert and awake Nutritional Appearance: well nourished Orientation/consciousness: patient oriented x3 Limitations: no limitations [facility] Head: Yes normal to inspection and Yes atraumatic Ears: hearing grossly normal bilaterally and external ears normal General nose exam: Normal external nose present, no nasal discharge noted and no epistaxis Face and sinus: Yes normal facial exam, No abrasion and No laceration Mouth: Normal oral and palatal mucosa present, no drooling and no muffled voice Eyes General: appearance normal, both eyes and all related structures Periorbital: periorbital findings normal Eyelids: Yes eyelids normal Conjunctivae: conjunctivae normal Pupils: Equal, round and reactive pupils present EOM: EOMs intact bilaterally Neck Neck: Yes normal visual inspection, Yes full ROM and Yes no lymphadenopathy Chest Chest palpation & inspection: normal inspection of the chest Resp Effort & Inspection: normal respiratory effort and able to speak in complete sentences GI Inspection: Yes normal to inspection Neuro General: patient oriented x3 and moves all extremities Cranial nerves: Yes Equal, round and reactive pupils present Cognition (Neuro): normal cognition Motor exam (neuro): 5/5 motor strength present throughout Sensory Exam: Normal double simultaneous stimulation for sensation Coordination: [id number] test normal Extrem General: Yes normal to inspection, Yes full ROM and Yes capillary refill normal Psych Appearance: grossly normal Mental Status: mental status grossly normal Affect: normal affect Attitude: cooperative Thought process: Normal thought process present Thought content: Normal thought content present Insight: Good insight present (Psych) Course Course Course Narrative: RME performed by Migdalia Aldana PA-C. Patient is a 43 year old assigned male at presenting to the emergency department with right knee pain / swelling. Detailed physical exam and review of systems are deferred to the mental health clinician. Imaging ordered. Patient placed back in the waiting room pending room availability and results. Medical Decision Making Medical Decision Making MDM Narrative: Patient is a 43 year old assigned male at with a history of HTN presenting to the emergency department today with right knee pain. Patient's physical exam was unremarkable. Patient's right knee x-ray showed no acute process. I explained my physical exam findings as well as all test results to the patient. I answered all questions asked by the patient. I stressed the importance of the patient taking his medication as prescribed. I stressed the importance of the patient following up with his primary care provider. I stressed the importance of the patient returning to the emergency department immediately if his symptoms were to worsen or if he were to develop any dizziness, shortness of breath, difficulty breathing, chest pain, blurry vision, loss of vision, nausea, vomiting, abdominal pain, fever, chills, back pain, or any other complaints. Patient verbalized agreement and understanding with this treatment plan and discharge. Differential Diagnosis Differential Diagnoses: The differential diagnosis associated with the presentation includes Right knee pain Right knee strain Right knee effusion Right knee injury Admission/Observation Consideration of admission/observation: Escalation of care including admission/observation considered Patient would have been admitted to the hospital had his work up had any findings where hospital admission was appropriate and his clinical presentation warranted hospital admission. Independent Interpretation I performed an independent interpretation of an: Plain X-Ray Interpretation: My interpretation is in agreement with the radiologist's impression of this imaging study. EXAMINATION: XR KNEE, RIGHT CLINICAL INFORMATION: Right knee pain and swelling. COMPARISON: Right knee radiographs dated 04/14/2023. TECHNIQUE: Four views of the right knee. FINDINGS: No acute fracture or dislocation. No joint space narrowing or marginal osteophytes. No osseous erosion. No abnormal soft tissue calcification. No significant joint effusion. XR/XR knee RT 3V IMPRESSION: Unremarkable examination. Dictated By: Shree Archibald MD Signed By: Electronically signed by Shree Archibald MD 01/03/24 1235 Radiology Impression Discussion of test interpretation with radiology: I have reviewed the radiologist's reading. Discharge Plan Discharge Clinical Impression: Acute knee pain Patient Disposition: Home, Self-Care Instructions: Knee Pain (ED) Additional Instructions: Follow up with your primary care provider and an orthopedic provider. Return to the emergency department immediately if your symptoms worsen or if you develop any dizziness, shortness of breath, difficulty breathing, chest pain, blurry vision, loss of vision, nausea, vomiting, abdominal pain, fever, chills, back pain, or any other complaints. Prescriptions: No Action atorvastatin 20 mg tablet 20 mg PO BEDTIME 90 Days Qty: 90 1RF fluticasone propion-salmeterol [Advair Diskus] 250-50 mcg/dose blister with device 1 inh inhalation BID Qty: 60 1RF albuterol sulfate 90 mcg/actuation aero powdr breath act w/sensor 1 inh inhalation Q4-6H PRN (Reason: shortness of breath or wheezing) Qty: 1 0RF allopurinol 100 mg tablet 100 mg PO DAILY 30 Days Qty: 30 2RF losartan 25 mg tablet 25 mg PO DAILY 90 Days Qty: 90 1RF citalopram 20 mg tablet 20 mg PO DAILY 90 Days Qty: 90 0RF Rx Instructions: Schedule next PCP appt for future refills hydroxyzine pamoate 25 mg capsule 25 mg PO DAILY Qty: 90 0RF Rx Instructions: Schedule next PCP appt for future refills amlodipine 10 mg tablet 10 mg PO DAILY Qty: 90 0RF Rx Instructions: Schedule next PCP appt for future refills amlodipine 5 mg tablet 5 mg PO DAILY Qty: 30 0RF cyclobenzaprine 10 mg tablet 10 mg PO TID PRN (Reason: muscle spasm) Qty: 10 0RF ibuprofen 600 mg tablet 600 mg PO Q8H PRN (Reason: pain) Qty: 30 0RF indomethacin 50 mg capsule 50 mg PO TID 5 Days Qty: 15 0RF Rx Instructions: administer with food or milk acetaminophen 500 mg tablet 1,000 mg PO QID PRN (Reason: pain) Qty: 30 0RF colchicine 0.6 mg tablet 0.6 mg PO DAILY Qty: 30 0RF Ref[place]: [facility] [place] Group] (Call to establish and follow up with an orthopedic provider. ) Allegra Raza [Primary Care Provider] - Stand Alone Forms: Work/School Release Interventions: ED Discharge Assessment Last Done: 01/03/24 13:08 Discharge Date/Time: 01/03/24 13:11 Print Language: Latvian
[2024-01-03 13:05] VITALS: BP 165/117; PULSE 110; RESP 15; O2SAT 97
== END 2024-01-03 13:11 | disposition home or self-care (01) ==
LOC: HO.ED 13:10
PROVIDERS: Emergency Provider Emergency Medicine; PCP Nurse Practitioner Family
DX: M25.571 Pain in right ankle and joints of right foot (principal); Z79.899 Other long term (current) drug therapy
CPT/HCPCS: 73562; 99283

== ENCOUNTER 2024-02-17 23:56 | Emergency (ER) | payer SELFPAY ==
--- NOTE | ~2024-02-17 | XR_ITS ---
EXAMINATION: XR CHEST CLINICAL INFORMATION: Shortness of breath, cough COMPARISON: 11/14/2023 TECHNIQUE: 2 views of the chest were obtained. FINDINGS: The lungs are clear with no focal consolidation. No evidence of pneumothorax, pulmonary edema, or pleural effusions. The cardiomediastinal silhouette is unremarkable. No acute osseous findings. XR/XR chest 2V IMPRESSION: No acute cardiopulmonary findings.
[2024-02-17 23:59] VITALS: BP 181/124; PULSE 100; RESP 18; TEMP 36.8; O2SAT 100; BMI 23.7
[2024-02-18 00:48] LABS: Influenza A PCR NEGATIVE (Negative); Influenza B PCR NEGATIVE (Negative); Resp Syncy Virus RNA Qual PCR NEGATIVE (Negative); SARS COV2 PCR INHOUSE NEGATIVE (Negative)
== END 2024-02-18 04:41 | disposition left against medical advice (07) ==
LOC: HO.ED 02-18 04:01
PROVIDERS: Emergency Provider Emergency Medicine
DX: R06.02 Shortness of breath (principal); J45.909 Unspecified asthma, uncomplicated; Z03.818 Encounter for observation for suspected exposure to other biological agents ruled out
CPT/HCPCS: 0241U; 71046; 99281; 99283

== ENCOUNTER 2025-03-02 08:58 | Emergency (ER) | payer BC, SELFPAY ==
--- NOTE | ~2025-03-02 | US_ITS ---
EXAMINATION: US SCROTUM WITH DOPPLER COMPLETE HISTORY: R/O testicular torsion, R testicular swelling/pain, R >L in size. COMPARISON: There are no prior studies for comparison. FINDINGS: Real-time grayscale ultrasound imaging of the scrotum was performed. Color and spectral Doppler analysis was also performed. RIGHT TESTICLE: The right testis measures 3.6 x 2.7 x 3.0 cm and demonstrates normal homogeneous echotexture. There is a small appendix testis. No masses are seen. The right testis demonstrates normal arterial and venous color Doppler and spectral waveforms. RIGHT EPIDIDYMIS: Normal in size, shape, and vascularity. LEFT TESTICLE: The left testis measures 4.0 x 2.8 x 2.5 cm and demonstrates normal homogeneous echotexture. There is a small appendix testis. No masses are seen. The left testis demonstrates normal arterial and venous color Doppler and spectral waveforms. LEFT EPIDIDYMIS: Normal in size, shape, and vascularity. There are tiny epididymal head cyst. VARICOCELE: None. HYDROCELE: There are small bilateral hydroceles. OTHER COMMENTS: There is a probable fat-containing right inguinal hernia. US/US scrotum IMPRESSION: Small bilateral hydroceles. Otherwise unremarkable scrotal ultrasound. Probable fat-containing right inguinal hernia. Electronically signed by: Bairon Ennis MD 03/02/2025 10:27 AM EDT
--- NOTE | ~2025-03-02 | US_ITS ---
EXAMINATION: US SCROTUM WITH DOPPLER COMPLETE HISTORY: R/O testicular torsion, R testicular swelling/pain, R >L in size. COMPARISON: There are no prior studies for comparison. FINDINGS: Real-time grayscale ultrasound imaging of the scrotum was performed. Color and spectral Doppler analysis was also performed. RIGHT TESTICLE: The right testis measures 3.6 x 2.7 x 3.0 cm and demonstrates normal homogeneous echotexture. There is a small appendix testis. No masses are seen. The right testis demonstrates normal arterial and venous color Doppler and spectral waveforms. RIGHT EPIDIDYMIS: Normal in size, shape, and vascularity. LEFT TESTICLE: The left testis measures 4.0 x 2.8 x 2.5 cm and demonstrates normal homogeneous echotexture. There is a small appendix testis. No masses are seen. The left testis demonstrates normal arterial and venous color Doppler and spectral waveforms. LEFT EPIDIDYMIS: Normal in size, shape, and vascularity. There are tiny epididymal head cyst. VARICOCELE: None. HYDROCELE: There are small bilateral hydroceles. OTHER COMMENTS: There is a probable fat-containing right inguinal hernia. US/US scrotum doppler IMPRESSION: Small bilateral hydroceles. Otherwise unremarkable scrotal ultrasound. Probable fat-containing right inguinal hernia. Electronically signed by: Bairon Ennis MD 03/02/2025 10:27 AM EDT
[2025-03-02 09:19] VITALS: BP 169/103; PULSE 96; RESP 18; TEMP 37; O2SAT 98; BMI 26.3
--- NOTE | 2025-03-02 09:57 | ED.MALEGU ---
HPI - Male Genitourinary General Chief complaint: Urogenital-Male Stated complaint: lower abd pain Time Seen by Provider: 03/02/25 09:54 Source: patient Mode of arrival: ambulatory Limitations: no limitations History of Present Illness ED Provider: Migdalia Aldana PA-C HPI Narrative: Patient is a 44 year old assigned male at with a history of HTN, asthma, anxiety, and renal cysts presenting to the emergency department today with right lower quadrant abdominal pain and right scrotal swelling. Patient states that over the last couple of days he has had right lower abdominal pain and now he is noticing increased right sided scrotal swelling. Patient denies any dizziness, lightheadedness, abdominal pain, nausea, vomiting, fever, chills, blurry vision, double vision, loss of vision, chest pain, difficulty breathing, shortness of breath, back pain, night sweats, pain with urination, increased urinary frequency, increased urinary urgency, blood in his urine or stool, syncope or a near syncopal episode, recent trauma or falls, bowel incontinence, bladder incontinence, or any other complaints at this time. Onset (ago): day(s) Relieving factors: none Exacerbating factors: none Related Data Previous Rx's ?Medication ?Instructions ?Recorded atorvastatin 20 mg tablet 20 mg PO BEDTIME 90 days #90 tabs 11/17/21 fluticasone 250 mcg-salmeterol 50 1 inh inhalation BID #60 ea 02/25/22 mcg/dose blistr powdr for inhalation (Advair Diskus) albuterol sulfate 90 mcg/actuation 1 inh inhalation Q4-6H PRN 03/01/22 breath activated powder shortness of breath or wheezing #1 inhaler,sensor ea colchicine 0.6 mg tablet 0.6 mg PO DAILY #30 tabs 09/02/22 allopurinol 100 mg tablet 100 mg PO DAILY 30 days #30 tabs 12/09/22 losartan 25 mg tablet 25 mg PO DAILY 90 days #90 tabs 12/16/22 amlodipine 5 mg tablet 5 mg PO DAILY #30 tabs 01/18/23 cyclobenzaprine 10 mg tablet 10 mg PO TID PRN muscle spasm #10 02/17/23 tabs ibuprofen 600 mg tablet 600 mg PO Q8H PRN pain #30 tabs 02/17/23 acetaminophen 500 mg tablet 1,000 mg (2 x 500 mg) PO QID PRN 04/14/23 pain #30 tabs indomethacin 50 mg capsule 50 mg PO TID pain 5 days #15 caps 04/14/23 citalopram 20 mg tablet 20 mg PO DAILY 90 days #90 tabs 05/28/23 hydroxyzine pamoate 25 mg capsule 25 mg PO DAILY #90 caps 07/18/23 amlodipine 10 mg tablet 10 mg PO DAILY #90 tabs 08/18/23 Allergies Allergy/AdvReac Type Severity Reaction Status Date / Time tramadol Allergy Unknown Unknown Verified 03/02/25 09:23 Review of Systems Constitutional: Constitutional: Reports no additional constitutional complaints, Denies chills, Denies fever(s) and Denies night sweats Eyes: Eyes: Reports no additional eye complaints, Denies blurry vision, Denies change in vision, Denies diplopia, Denies eye discharge, Denies loss of vision and Denies eye pain ENT: Denies dizziness Cardiovascular: Cardiovascular: Reports no additional cardiovascular complaints, Denies chest pain, Denies lightheadedness, Denies Loss of Consciousness and Denies dyspnea Respiratory: Respiratory: Reports no additional respiratory complaints and Denies dyspnea Gastrointestinal: Gastrointestinal: Reports no additional gastrointestinal complaints, Reports abdominal pain, Denies melena, Denies hematochezia, Denies change in bowel habits and Denies change in stool character Genitourinary: Genitourinary: Reports no additional male genitourinary complaints, Denies hematuria, Denies oliguria, Denies difficulty urinating, Denies dysuria, Reports scrotal swelling, Denies urinary frequency, Denies urinary hesitancy, Denies urinary incontinence and Denies urinary urgency Musculoskeletal: Musculoskeletal: Reports no additional musculoskeletal complaints, Denies numbness and Denies tingling Neurologic: Denies dizziness, Denies loss of vision, Denies numbness and Denies tingling Psychiatric: Psychiatric: Reports no additional psychiatric complaints Endocrine: Endocrine: Reports no additional endocrine complaints Hematologic/Lymphatic: Hematologic/Lymphatic: Reports no additional hematologic/lymphatic complaints Allergic/Immunologic: Allergic/Immunologic: Reports no additional allergic/immunologic complaints PMFSH Past Medical History Attestation statement: The following information was validated with the patient. Source: old records reviewed and nursing notes reviewed Medical History Acute knee pain Purpura Elevated liver enzymes Gout Asthma PTSD (post-traumatic stress disorder) Mild depression Anxiety HTN (hypertension) Surgical History History of surgery Family History Family History Father Diabetes mellitus HTN (hypertension) Mother HTN (hypertension) Anxiety Sister HTN (hypertension) Brother Sleep apnea Maternal Grandmother History of heart attack Breast cancer Brain aneurysm Maternal Grandfather No problems noted. Paternal Grandfather No problems noted. Paternal Grandmother Diabetes mellitus CVD (cardiovascular disease) Other Mental health disorder Social History Social History Alcohol intake: current Alcohol intake frequency: a few times a week Alcohol type: beer Patient Tobacco Use Status: Never used Tobacco e-Cigarette/Vaping Use: Never Used Second Hand Smoke Exposure: No service: No Cognitive needs: No Hearing needs: No Vision needs: Yes (Glasses) Physical Exam Vital Signs: Vital Signs: Last Vital Signs Temp 97.5 F 03/02/25 11:35 Pulse 77 03/02/25 11:35 Resp 17 03/02/25 11:35 BP 147/96 H 03/02/25 11:35 Pulse Ox 97 03/02/25 11:35 O2 Del Method Room Air 03/02/25 11:35 BMI result Body Mass Index 26.3 Const: General: cooperative, no acute distress, alert and awake Nutritional Appearance: well nourished Orientation/consciousness: patient oriented x3 Limitations: no limitations HEENT: Head: Yes normal to inspection and Yes atraumatic Ears: hearing grossly normal bilaterally and external ears normal General nose exam: Normal external nose present, no nasal discharge noted and no epistaxis Face and sinus: Yes normal facial exam, No abrasion and No laceration Mouth: Normal oral and palatal mucosa present, no drooling and no muffled voice Eyes: General: appearance normal, both eyes and all related structures Periorbital: periorbital findings normal Eyelids: Yes eyelids normal Conjunctivae: conjunctivae normal Pupils: Equal, round and reactive pupils present EOM: EOMs intact bilaterally Neck: Neck: Yes normal visual inspection, Yes full ROM and Yes no lymphadenopathy Chest: Chest palpation & inspection: normal inspection of the chest Resp: Effort & Inspection: normal respiratory effort and able to speak in complete sentences GI: Inspection: Yes normal to inspection Palpation (GI): Soft to palpation, not firm, nontender and no guarding Neuro: General: patient oriented x3, moves all extremities and CN's II-XI intact bilaterally Cranial nerves: Yes Equal, round and reactive pupils present Cognition (Neuro): normal cognition Extrem: General: Yes normal to inspection, Yes full ROM and Yes capillary refill normal Psych: Appearance: grossly normal Mental Status: mental status grossly normal Affect: normal affect Attitude: cooperative Thought process: Normal thought process present Thought content: Normal thought content present Insight: Good insight present (Psych) Medical Decision Making Medical Decision Making [facility] Narrative: Patient is a 44 year old assigned male at with a history of HTN, asthma, anxiety, and renal cysts presenting to the emergency department today with right lower quadrant abdominal pain and right scrotal swelling. Patient's physical exam was unremarkable. Patient deferred a scrotal examination. Patient's blood work was unremarkable. Patient's urine showed no acute process. Patient's scrotal US showed a right inguinal hernia. I explained my physical exam findings as well as all test results to the patient. I answered all questions asked by the patient. I stressed the importance of the patient taking his medication as directed (either prescribed or as the over the counter packaging recommends). I stressed the importance of the patient following up with his primary care provider and a general surgeon. I stressed the importance of the patient returning to the emergency department immediately if his symptoms were to worsen or if he were to develop any dizziness, shortness of breath, difficulty breathing, chest pain, blurry vision, loss of vision, nausea, vomiting, abdominal pain, fever, chills, back pain, or any other complaints. Patient verbalized agreement and understanding with this treatment plan and discharge. Differential Diagnosis Differential Diagnoses: The differential diagnosis associated with the presentation includes Inguinal hernia Abdominal pain Admission/Observation Consideration of admission/observation: Escalation of care including admission/observation considered Patient would have been admitted to the hospital had his work up had any findings where hospital admission was appropriate and his clinical presentation warranted hospital admission. Lab Data [facility] Lab Attestation statement: I reviewed the patient's lab results. My interpretation of these results are in the [facility] Rationale portion of this note. 03/02/25 10:34 03/02/25 10:34 Labs: Lab Results 04/11/25 Range/Units 10:34 WBC 8.3 (4.8-10.8) X10*3/uL RBC 5.07 (4.60-5.80) X10*6/uL Hgb 14.7 (14.0-18.0) g/dl Hct 44.2 (42.0-52.0) % MCV 87.2 (80.0-98.0) fL MCH 29.0 (27.0-33.0) pg MCHC 33.3 (31.0-36.0) g/dl RDW 13.9 (11.0-16.0) % Plt Count 227 (160-400) X10*3/uL MPV 10.1 (9.4-12.4) fL Immature Gran % (Auto) 0.5 H (0.0-0.4) % Neut % (Auto) 66.5 (45-73) % Lymph % (Auto) 17.0 L (20-40) % [place] % (Auto) 10.0 (2-11) % Eos % (Auto) 5.3 H (0-4) % Baso % (Auto) 0.7 (0-2) % Lymph # (Auto) 1.4 (1.2-4.9) X10*3/uL [place] # (Auto) 0.8 (0.1-1.2) X10*3/uL Eos # (Auto) 0.4 (0.0-0.4) X10*3/uL Baso # (Auto) 0.1 (0.0-0.2) X10*3/uL Abs Immat Gran (auto) 0.04 H (0.00-0.03) X10*3/uL Absolute Neuts (auto) 5.5 (2.0-8.3) x10*3/uL Absolute Nucleated RBC 0.000 (0.0-0.012) X10*3/uL Nucleated RBC % (auto) 0.0 (0.0-0.2) /100WBC Sodium 137 (135-145) mmol/L Potassium 4.4 (3.3-5.1) mmol/L Chloride 107 (96-108) mmol/L Carbon Dioxide 22 (22-29) mmol/L Anion Gap 12 (12-20) BUN 16 (9-16) mg/dL Creatinine 0.70 (0.5-1.4) mg/dL Estim Creat Clear Calc 150.6 Estimated GFR > 60 Random Glucose 102 (60-115) mg/dL Calcium 9.1 (8.4-10.2) mg/dL Total Bilirubin 0.5 (0.0-1.0) mg/dL AST 37 (5-37) U/L ALT 61 H (0-40) U/L Alkaline Phosphatase 88 (39-117) U/L Total Protein 7.1 (6.5-8.0) g/dL Albumin 4.5 (3.5-5.0) g/dL Urine Color Yellow Urine Appearance Clear Urine pH 6.5 (5.0-9.0) Ur Specific [place] 1.015 (1.005-1.025) Urine Protein Negative (Neg-Trace) mg/dL Urine Glucose (UA) Negative (Negative) mg/dL Urine Ketones Negative (Negative) mg/dL Urine Blood Negative (Negative) Urine Nitrite Negative (Negative) Ur Leukocyte Esterase Negative (Negative) Independent Interpretation I performed an independent interpretation of an: Ultrasound Interpretation: My interpretation is in agreement with the radiologist's impression of this imaging study. EXAMINATION: US SCROTUM WITH DOPPLER COMPLETE HISTORY: R/O testicular torsion, R testicular swelling/pain, R >L in size. COMPARISON: There are no prior studies for comparison. FINDINGS: Real-time grayscale ultrasound imaging of the scrotum was performed. Color and spectral Doppler analysis was also performed. RIGHT TESTICLE: The right testis measures 3.6 x 2.7 x 3.0 cm and demonstrates normal homogeneous echotexture. There is a small appendix testis. No masses are seen. The right testis demonstrates normal arterial and venous color Doppler and spectral waveforms. RIGHT EPIDIDYMIS: Normal in size, shape, and vascularity. LEFT TESTICLE: The left testis measures 4.0 x 2.8 x 2.5 cm and demonstrates normal homogeneous echotexture. There is a small appendix testis. No masses are seen. The left testis demonstrates normal arterial and venous color Doppler and spectral waveforms. LEFT EPIDIDYMIS: Normal in size, shape, and vascularity. There are tiny epididymal head cyst. VARICOCELE: None. HYDROCELE: There are small bilateral hydroceles. OTHER COMMENTS: There is a probable fat-containing right inguinal hernia. US/US scrotum IMPRESSION: Small bilateral hydroceles. Otherwise unremarkable scrotal ultrasound. Probable fat-containing right inguinal hernia. Electronically signed by: Bairon Ennis MD 03/02/2025 10:27 AM EDT RP Dictated By: Bairon Ennis MD Signed By: Electronically signed by Bairon Ennis MD 03/02/25 1046 Radiology Impression Discussion of test interpretation with radiology: I have reviewed the radiologist's reading. Discharge Plan Discharge Clinical Impression: Inguinal hernia Patient Disposition: Home, Self-Care Instructions: Inguinal Hernia (ED) Additional Instructions: Follow up with your primary care provider and a general surgeon. Return to the emergency department immediately if your symptoms worsen or if you develop any numbness, tingling, dizziness, shortness of breath, difficulty breathing, chest pain, blurry vision, loss of vision, nausea, vomiting, abdominal pain, fever, chills, back pain, or any other complaints. Please see the information below about our Patient Portal. If you are not yet enrolled in the [facility] Patient Portal, you will receive an enrollment email invitation following your visit to any [facility] care setting. You may also self-enroll in the Patient Portal by visiting our website: [email or web address] The following information is required to access the Patient Portal: - Your [facility] Medical Record Number - Your personal home email address (must match what is in your electronic medical record, Registration staff can assist with this) - Name - Date of Capabilities of the Patient Portal: - Message some providers - View upcoming appointments - Access your health summary, medical history, and visit history - View current conditions and allergies - View procedure and lab results - View your medications, including guidelines, side effects, and precautions - Complete pre-appointment questionnaires requested by your provider - Ready summary reports of your office visits and procedures To access the Patient Portal Mobile Hermila, follow these directions: - Search Tealium in the Herm[employer] Store or [employer] Store - Download the Hermila - Search for [facility] - Enter your login/password Prescriptions: No Action atorvastatin 20 mg tablet 20 mg PO BEDTIME 90 Days Qty: 90 1RF fluticasone propion-salmeterol [Advair Diskus] 250-50 mcg/dose blister with device 1 inh inhalation BID Qty: 60 1RF albuterol sulfate 90 mcg/actuation aero powdr breath act w/sensor 1 inh inhalation Q4-6H PRN (Reason: shortness of breath or wheezing) Qty: 1 0RF allopurinol 100 mg tablet 100 mg PO DAILY 30 Days Qty: 30 2RF losartan 25 mg tablet 25 mg PO DAILY 90 Days Qty: 90 1RF citalopram 20 mg tablet 20 mg PO DAILY 90 Days Qty: 90 0RF Rx Instructions: Schedule next PCP appt for future refills hydroxyzine pamoate 25 mg capsule 25 mg PO DAILY Qty: 90 0RF Rx Instructions: Schedule next PCP appt for future refills amlodipine 10 mg tablet 10 mg PO DAILY Qty: 90 0RF Rx Instructions: Schedule next PCP appt for future refills amlodipine 5 mg tablet 5 mg PO DAILY Qty: 30 0RF cyclobenzaprine 10 mg tablet 10 mg PO TID PRN (Reason: muscle spasm) Qty: 10 0RF ibuprofen 600 mg tablet 600 mg PO Q8H PRN (Reason: pain) Qty: 30 0RF indomethacin 50 mg capsule 50 mg PO TID 5 Days Qty: 15 0RF Rx Instructions: administer with food or milk acetaminophen 500 mg tablet 1,000 mg PO QID PRN (Reason: pain) Qty: 30 0RF colchicine 0.6 mg tablet 0.6 mg PO DAILY Qty: 30 0RF Referrals: [facility] General Surgeons [Provider Group] (Call to establish and follow up with a general surgeon.) [facility] Family Medicine [Provider Group] (Call to establish and follow up with a primary care provider. If you already have a primary care provider, please follow up with them.) [facility] Primary CareAni [Provider Group] (Call to establish and follow up with a primary care provider. If you already have a primary care provider, please follow up with them.) [facility] Primary Care, Ida [Provider Group] (Call to establish and follow up with a primary care provider. If you already have a primary care provider, please follow up with them.) [facility] Primary Care, CARLEE [Provider Group] (Call to establish and follow up with a primary care provider. If you already have a primary care provider, please follow up with them.) [facility] Primary Care, Joey Arnett [Provider Group] (Call to establish and follow up with a primary care provider. If you already have a primary care provider, please follow up with them.) Stand Alone Forms: Work/School Release Interventions: ED Discharge Assessment Last Done: 03/02/25 11:35 Discharge Date/Time: 03/02/25 11:35 Print Language: Russian
[2025-03-02 10:39] LABS: MANUAL DIFF FLAG NO
[2025-03-02 10:41] LABS: Appearance Urine Clear; Color Urine Yellow; Glucose Urine UA Negative (Negative); Leukocyte Esterase Urine Negative (Negative); Nitrite Urine Negative (Negative); PH 6.5 (5.0-9.0); Specific Gravity - Urine 1.015 (1.005-1.025); Urine Blood Negative (Negative); Urine Ketones Negative (Negative); Urine Protein Negative (Neg-Trace)
[2025-03-02 10:47] LABS: Basophils Absolute Auto 0.1 X10*3/uL (0.0-0.2); Basophils Percent Auto 0.7 % (0-2); Eosinophils Absolute Auto 0.4 X10*3/uL (0.0-0.4); Eosinophils Percent Auto 5.3 % (0-4); Hematocrit 44.2 % (42.0-52.0); Hemoglobin 14.7 g/dl (14.0-18.0); Imm Gran Abs Auto 0.04 X10*3/uL (0.00-0.03); Imm Gran Pct Auto 0.5 % (0.0-0.4); Lymphocytes Absolute Auto 1.4 X10*3/uL (1.2-4.9); Mean Corpuscular HGB Conc 33.3 g/dl (31.0-36.0); Mean Corpuscular Volume 87.2 fL (80.0-98.0); Mean Platelet Volume 10.1 fL (9.4-12.4); Monocytes Absolute Auto 0.8 X10*3/uL (0.1-1.2); Neutrophils Absolute Auto 5.5 x10*3/uL (2.0-8.3); Neutrophils Percent Auto 66.5 % (45-73); Platelet Count 227 X10*3/uL (160-400); Red Blood Count 5.07 X10*6/uL (4.60-5.80); Red Cell Distribution Width 13.9 % (11.0-16.0); White Blood Count 8.3 X10*3/uL (4.8-10.8)
[2025-03-02 10:54] LABS: Alanine Aminotransferase 61 U/L (0-40); Albumin Level 4.5 g/dL (3.5-5.0); Alkaline Phosphatase 88 U/L (39-117); Anion Gap 12 (12-20); Aspartate Amino Transferase 37 U/L (5-37); Bilirubin Total 0.5 mg/dL (0.0-1.0); Blood Urea Nitrogen 16 mg/dL (9-16); Calcium 9.1 mg/dL (8.4-10.2); Carbon Dioxide 22 mmol/L (22-29); Chloride 107 mmol/L (96-108); Creatinine Clr Calc Pharmacy 150.6; Estimated Glomerular Filt Rate > 60; Glucose Random 102 mg/dL (60-115); Potassium 4.4 mmol/L (3.3-5.1); Sodium 137 mmol/L (135-145); Total Protein 7.1 g/dL (6.5-8.0)
[2025-03-02 11:24] VITALS: BP 147/96; PULSE 77; RESP 17; TEMP 36.4; O2SAT 97
--- OUTSIDE RECORDS SUMMARY | 2025-03-02 11:28 | XMS_ITS | Clinical Summary ---
Author Organization [facility] it Address [address] [place] [address] Care Team Providers [employer] Name Role Phone Unavailable Primary Care Provider Unavailabl e Surgical History Surgery Date Site/Laterality Comments OTHER SURGICAL HISTORY PROCEDURE: ID UNLISTED PROCEDURE LUNGS & PLEURA ESOPHAGOGASTRODUODENOSCOPY 10/04/09 PROCEDURE: ID ESOPHAGOGASTRODUODENOSCOPY TRANSORAL DIAGNOSTIC; COMMENT: normal Medical History Medical History Date Comments Asthma DX:Asthma PTSD (post-traumatic stress disorder) 09/06/2008 DX:PTSD (post-traumatic stress disorder) Anxiety 07/15/2010 DX:Anxiety HTN (hypertension) 09/22/2012 DX:HTN (hyper tension) Seasonal allergies 09/22/2012 DX:Seasonal a llergies UPJ (ureteropelvic junction) obstruction 10/03/2013 DX:UPJ (ureteropelvic juncti on) obstruction Family History Medical History Relation Name Comments Diabetes Father Hypertension Father Stroke Father Heart attack Maternal Grandmother x 2 Other cancer Maternal Grandmother Hypertension Mother Other cancer Paternal Grandmother Other: heart murmur Paternal Grandmother Relation Name Status Comments Father Maternal Grandmother Mother Paternal Grandmother Social History Tobacco Use Types Packs/Day Years Used Date Smoking Tobacco: Never Smokeless Tobacco: Never Alcohol Use Standard Drinks/Week Comments Yes 0 (1 standard drink = 0.6 oz pur e alcohol) Sex and Gender Information Value Date Recorded Sex Assigned at Not on file Legal Sex Male 10:57 PM EST Gender Identity Not on file Sexual Orientation Not on file Obstetrics History Plan of Treatment Health Maintenance Due Date Last Done Comments DTaP,Tdap,and Td Vaccines (1 - Tdap) 1998 Hepatitis B Vaccines (1 of 3 - 19+ 3-dose series) 1998 Pneumococcal Vaccine: Pediatrics (0 to 5 Years) and At-Risk Patients (6 to 64 Years) (1 of 2 - PCV) 1998 Cholesterol Screening (Lipid Panel) 07/17/2024 Colorectal Cancer Screening: Colonoscopy 07/17/2024 Depression Screening 07/17/2024 HIV Screening 07/17/2024 Hepatitis C Screening 07/17/2024 Hypertension/CHF/CAD Annual BMP Blood Test 07/17/2024 Social Influencers of Health Screening 07/17/2024 COVID-19 Vaccine ( season) 2024 Influenza Vaccine (Season Ended) 2025 10/09/2013, 09/22/2012, 09/24/2011, Additional history exists HIB Vaccines Aged Out No longer eligi ble based on patient's age to complete this topic HPV Vaccines Aged Out No longer eligi ble based on patient's age to complete this topic Hepatitis A Vaccines Aged Out No long er eligible based on patient's age to complete this topic IPV Vaccines Aged Out No longer eligi ble based on patient's age to complete this topic MMR Vaccines Aged Out No longer eligi ble based on patient's age to complete this topic Meningococcal ACWY Vaccine Aged Out N o longer eligible based on patient's age to complete this topic Meningococcal B Vaccine Aged Out No l onger eligible based on patient's age to complete this topic RSV Immunization Patients Under 20 months Aged Out No longer eligible based on patient's age to complete this topic Varicella Vaccines Aged Out No longer eligible based on patient's age to complete this topic
[2025-03-02 11:35] VITALS: BP 147/96; PULSE 77; RESP 17; TEMP 36.4; O2SAT 97
== END 2025-03-02 11:35 | disposition home or self-care (01) ==
PROVIDERS: Physician Assistant Medical; Emergency Provider Emergency Medicine Emergency Medical Services
DX: K40.90 Unilateral inguinal hernia, without obstruction or gangrene, not specified as recurrent (principal); R10.2 Pelvic and perineal pain; N43.3 Hydrocele, unspecified; Z79.899 Other long term (current) drug therapy
CPT/HCPCS: 36415; 76870; 80053; 81003; 85025; 93975; 99284

== ENCOUNTER → 2025-03-02 09:42 | Outpatient (BNV) | payer BC, SELFPAY | PROVIDERS: Visit Provider Radiology Diagnostic Radiology | DX: N43.3 Hydrocele, unspecified (principal); N50.3 Cyst of epididymis | CPT/HCPCS: 76870; 93975 ==

== ENCOUNTER 2025-03-15 08:44 | Outpatient (AMB) | payer BC, SELFPAY ==
--- NOTE | 2025-03-15 08:49 | MHC.OFFVIS ---
Vital Signs 03/15/25 08:53 Height 5 ft 10 in Weight 202 lb BMI 29.0 BP 162/110 H Blood Pressure Location Lt brachial Position Sitting Pulse 80 Intake Visit Reasons: inguinal hernia Intake Note: Patient is seen in office for ER follow up visit, following right inguinal hernia. Pt c/o: onset 2 wks, sharp pain in the right groin, and radiates to the testicles, pain worse with a bm, denies n/v/d/c, currently not having pain ED/US:03/02/25 [employer] Required: No Accompanied by: Self / Same As Patient Allergies tramadol Allergy (Unknown, Verified 03/02/25 09:23) Unknown Medication List - Last Reconciled 03/15/25 by Benja Avila MD acetaminophen 1,000 mg (2 x 500 mg) PO QID PRN albuterol sulfate 90 mcg/actuation 1 inh inhalation Q4-6H PRN allopurinol 100 mg PO DAILY 30 days amlodipine 10 mg PO DAILY atorvastatin 20 mg PO BEDTIME 90 days citalopram 20 mg PO DAILY 90 days colchicine 0.6 mg PO DAILY fluticasone propion-salmeterol 250-50 mcg/dose (Advair Diskus) 1 inh inhalation BID hydroxyzine pamoate 25 mg PO DAILY ibuprofen 600 mg PO Q8H PRN losartan 25 mg PO DAILY 90 days rosuvastatin 40 mg PO DAILY HPI Comments Details: 44-year-old male patient presenting for evaluation of a right inguinal hernia. He was evaluated in the emergency department on 03/02/2025 for several days of right groin pain. The pain started this spontaneously without any heavy lifting or straining. He does report a history of asthma in his chronically coughing. In the emergency department he was noted to be tender in the right groin. Subsequent ultrasound of the scrotum did reveal a right fat containing right inguinal hernia. Since his ER visit however he reports no ongoing symptoms in the right groin. He feels well and denies any nausea, vomiting, or bowel changes. He denies any symptoms in the left groin. [facility] Medical History Acute knee pain Purpura Elevated liver enzymes Gout Asthma PTSD (post-traumatic stress disorder) Mild depression Anxiety HTN (hypertension) Surgical History History of surgery Family History Father Diabetes mellitus HTN (hypertension) Mother HTN (hypertension) Anxiety Sister HTN (hypertension) Brother Sleep apnea Maternal Grandmother History of heart attack Breast cancer Brain aneurysm Maternal Grandfather No problems noted. Paternal Grandfather No problems noted. Paternal Grandmother Diabetes mellitus CVD (cardiovascular disease) Other Mental health disorder Social History Alcohol intake: current Alcohol intake frequency: a few times a week Alcohol type: beer Patient Tobacco Use Status: Never used Tobacco e-Cigarette/Vaping Use: Never Used Second Hand Smoke Exposure: No service: No Cognitive needs: No Hearing needs: No Vision needs: Yes (Glasses) Review of Systems Const All systems reviewed & are unremarkable except as noted in HPI and below Physical Exam Vital Signs: Last Vital Signs Pulse 80 03/15/25 08:53 BP 162/110 H 03/15/25 08:53 BMI result Body Mass Index 29.0 Const General: cooperative and no acute distress Nutritional Appearance: well nourished Orientation/consciousness: patient oriented x3 Limitations: no limitations HEENT Head: Yes normocephalic and Yes atraumatic Ears: hearing grossly normal bilaterally Resp Effort & Inspection: normal respiratory effort, no audible wheezes, no cough and no respiratory distress Cardio Jugular venous distension: no JVD GI Other: Examination in the standing position with Valsalva maneuvers reveals a very small right inguinal hernia which reduces spontaneously. Minimal to no tenderness is elicited with palpation. Left groin reveals no palpable hernia. Testes are normal and descended. Inspection: Yes normal to inspection Palpation (GI): Soft to palpation, nontender, no guarding and not rigid Skin Other: Warm, dry, no rash Neuro General: patient oriented x3 Extrem General: Yes no clubbing, cyanosis or edema Assessment & Plan Assessment & Plan (1) Reducible right inguinal hernia: Code(s): K40.90 - Unilateral inguinal hernia, without obstruction or gangrene, not specified as recurrent Category: Medical Plan 44-year-old male patient presenting with a new onset right inguinal hernia evaluated in the emergency department and confirmed on ultrasound. On examination today he does have a very small reducible right inguinal hernia. We discussed the option of repairing the hernia verses continued observation given its small size. I reviewed the procedure risks and postoperative care. He was comfortable with observing the hernia for now and will call should he become more symptomatic. He is welcome to call a new questions. Coding Level of Care Code New Pt Level 4 (02613) Diagnoses Reducible right inguinal hernia K40.90
[2025-03-15 08:53] VITALS: BP 162/110; PULSE 80; BMI 29.0
--- OUTSIDE RECORDS SUMMARY | 2025-03-15 09:13 | XMS_ITS | Clinical Summary ---
Author Organization [facility] it Address [address] [place] [address] Care Team Providers Care Manager E Learning Name Role Phone Unavailable Primary Care Provider Unavailabl e Surgical History Surgery Date Site/Laterality Comments OTHER SURGICAL HISTORY PROCEDURE: [place] UNLISTED PROCEDURE LUNGS & PLEURA ESOPHAGOGASTRODUODENOSCOPY 10/04/09 PROCEDURE: [place] ESOPHAGOGASTRODUODENOSCOPY TRANSORAL DIAGNOSTIC; COMMENT: normal Medical History [...]
== END 2025-03-15 09:05 | disposition home or self-care (01) ==
LOC: HO.HGS 08:45
PROVIDERS: Visit Provider Surgery
DX: K40.90 Unilateral inguinal hernia, without obstruction or gangrene, not specified as recurrent (principal)
CPT/HCPCS: 99204

== ENCOUNTER 2025-04-09 07:44 | Emergency (ER) | payer BC, SELFPAY ==
--- NOTE | ~2025-04-09 | XR_ITS ---
EXAMINATION: XR KNEE, RIGHT CLINICAL INFORMATION: pain COMPARISON: 01/03/2024. TECHNIQUE: Four views of the right knee. FINDINGS: No fracture, dislocation, or suspicious bone lesion. Normal bone mineralization. Normal alignment. There is mild lateral compartment joint space narrowing. Remainder of joint spaces appear preserved. There is a prominent suprapatellar joint effusion. Soft tissues appear normal. XR/XR knee RT 3V IMPRESSION: 1. No acute bony abnormalities. 2. Prominent suprapatellar joint effusion. 3. Mild lateral compartment joint space narrowing. Electronically signed by: Ramesh Moreno MD 04/09/2025 08:43 AM EDT
[2025-04-09 08:03] VITALS: BP 151/107; PULSE 86; RESP 18; TEMP 36; O2SAT 99; BMI 29.7
--- OUTSIDE RECORDS SUMMARY | 2025-04-09 08:23 | XMS_ITS | Clinical Summary ---
Author Organization [facility] it Address [address] [place] [address] Care Team Providers Care Property Site Manager Name Role Phone Unavailable Primary Care Provider Unavailabl e Surgical History Surgery Date Site/Laterality Comments OTHER SURGICAL HISTORY PROCEDURE: [place] UNLISTED PROCEDURE LUNGS & PLEURA ESOPHAGOGASTRODUODENOSCOPY 10/04/09 PROCEDURE: [place] ESOPHAGOGASTRODUODENOSCOPY TRANSORAL DIAGNOSTIC; COMMENT: normal Medical History [...]
[2025-04-09] MEDS: Ketorolac Tromethamine 30 MG/ML VIAL IM (08:45)
--- NOTE | 2025-04-09 08:47 | ED_ITS ---
HPI - Extremity Injury (Lower) General Chief Complaint: Extremity Injury, Lower Stated Complaint: R knee swollen Time Seen by Provider: 04/09/25 08:27 Source: patient, RN notes reviewed and old records reviewed Mode of arrival: ambulatory History of Present Illness ED Provider: Litzy Hutton PA-C HPI Narrative: 45-year-old male with a past medical history of gout, asthma, PTSD, anxiety, depression, HTN, presenting to the ED complaining of atraumatic right knee swelling, pain described as tightness last night. Admits symptoms feel similar to prior gout in the past admits to eating at [employer] last night and feels this exacerbated his symptoms. Reports pain with ambulation/weight bearing. Denies fever, chills, redness, numbness, tingling, weakness, travel, pedal edema Related Data Home Medications ?Medication ?Instructions ?Recorded ?Confirmed rosuvastatin 40 mg tablet 40 mg PO DAILY 03/15/25 03/15/25 Previous Rx's ?Medication ?Instructions ?Recorded atorvastatin 20 mg tablet 20 mg PO BEDTIME 90 days #90 tabs 11/17/21 fluticasone 250 mcg-salmeterol 50 1 inh inhalation BID #60 ea 02/25/22 mcg/dose blistr powdr for inhalation (Advair Diskus) albuterol sulfate 90 mcg/actuation 1 inh inhalation Q4-6H PRN 03/01/22 breath activated powder shortness of breath or wheezing #1 inhaler,sensor ea colchicine 0.6 mg tablet 0.6 mg PO DAILY #30 tabs 09/02/22 allopurinol 100 mg tablet 100 mg PO DAILY 30 days #30 tabs 12/09/22 losartan 25 mg tablet 25 mg PO DAILY 90 days #90 tabs 12/16/22 ibuprofen 600 mg tablet 600 mg PO Q8H PRN pain #30 tabs 02/17/23 acetaminophen 500 mg tablet 1,000 mg (2 x 500 mg) PO QID PRN 04/14/23 pain #30 tabs citalopram 20 mg tablet 20 mg PO DAILY 90 days #90 tabs 05/28/23 hydroxyzine pamoate 25 mg capsule 25 mg PO DAILY #90 caps 07/18/23 amlodipine 10 mg tablet 10 mg PO DAILY #90 tabs 08/18/23 naproxen 500 mg tablet 500 mg PO BID PRN pain 10 days #20 04/09/25 tabs prednisone 20 mg tablet 40 mg (2 x 20 mg) PO DAILY 5 days 04/09/25 #10 tabs Allergies Allergy/AdvReac Type Severity Reaction Status Date / Time tramadol Allergy Unknown Unknown Verified 04/09/25 08:06 Review of Systems Review of Systems: Yes all other systems are reviewed and are negative Constitutional: Constitutional: Reports as per [facility] Past Medical History Attestation statement: The following information was validated with the patient. Source: old records reviewed Medical History Acute knee pain Purpura Elevated liver enzymes Gout Asthma PTSD (post-traumatic stress disorder) Mild depression Anxiety HTN (hypertension) Surgical History History of surgery Family History Family History Father Diabetes mellitus HTN (hypertension) Mother HTN (hypertension) Anxiety Sister HTN (hypertension) Brother Sleep apnea Maternal Grandmother History of heart attack Breast cancer Brain aneurysm Maternal Grandfather No problems noted. Paternal Grandfather No problems noted. Paternal Grandmother Diabetes mellitus CVD (cardiovascular disease) Other Mental health disorder Social History Social History Alcohol intake: current Alcohol intake frequency: a few times a week Alcohol type: beer Patient Tobacco Use Status: Never used Tobacco e-Cigarette/Vaping Use: Never Used Second Hand Smoke Exposure: No Advance Directives: No Advance Directives Information Provided: Yes service: No Cognitive needs: No Hearing needs: No Vision needs: Yes (Glasses) Physical Exam Vital Signs: Vital Signs: Last Vital Signs Temp 96.8 F 04/09/25 08:03 Pulse 86 04/09/25 08:03 Resp 18 04/09/25 08:03 BP 151/107 H 04/09/25 08:03 Pulse Ox 99 04/09/25 08:03 O2 Del Method Room Air 04/09/25 08:03 BMI result Body Mass Index 29.7 Const: General: cooperative, healthy appearing and no acute distress Orientation/consciousness: patient oriented x3 Limitations: no limitations HEENT: Head: Yes normal to inspection and Yes atraumatic Ears: hearing grossly normal bilaterally General nose exam: Normal external nose present Face and sinus: Yes normal facial exam Eyes: General: appearance normal, both eyes and all related structures EOM: EOMs intact bilaterally Neck: Neck: Yes normal visual inspection and Yes no meningeal signs Resp: Effort & Inspection: normal respiratory effort and no respiratory distress Auscultation: clear to auscultation bilaterally Cardio: Rate: regular rate Heart sounds: S1 normal heart sound present and S2 normal heart sound present Skin: Rashes: no rashes Wounds: no wounds Neuro: General: patient oriented x3, tone normal and no meningeal signs Cranial nerves: Yes CN's II-XII intact bilaterally Gait exam (Neuro): Normal gait present Extrem: Other: Right knee with suprapatellar swelling without erythema or warmth + tender to palpation. No fluctuance or induration. No streaking. No crepitus. Limited flexion secondary to pain. Neurovascularly intact distally. No pedal edema Course Course Course Narrative: XR knee RT 3V IMPRESSION: 1. No acute bony abnormalities. 2. Prominent suprapatellar joint effusion. 3. Mild lateral compartment joint space narrowing. > Sabino wrap applied for compression and comfort. Will treat empirically for gout Results discussed with patient including worrisome signs and symptoms and strict return precautions, and when to return to the emergency department. They verbalized understanding and feel safe for discharge at this time. Medications Administered Discontinued Medications Generic Name Dose Route Start Last Admin Trade Name Freq PRN Reason Stop Dose Admin Ketorolac Tromethamine 30 mg 04/09/25 08:36 04/09/25 08:45 Ketorolac Tromethamine 30 Mg/Ml Vial IM 04/09/25 08:37 30 mg ONCE ONE Administration Medical Decision Making Medical Decision Making [facility] Narrative: 45-year-old male with a past medical history of gout, asthma, PTSD, anxiety, depression, HTN, presenting to the ED complaining of atraumatic right knee swelling, pain described as tightness last night. On exam hypertensive, NAD, nontoxic appearing, physical exam as noted above. Concern for gout flare vs tendinopathy/ligamental or meniscal injury. Low suspicion for fracture. No evidence of septic joint/arthritis. Unlikely DVT Plan: X-ray, IM Toradol, re-evaluate Please refer to course for remaining clinical decision making, interpretation of labs/imaging results, and discussions with consultants and/or family members. Differential Diagnosis Differential Diagnoses: The differential diagnosis associated with the presentation includes As above Independent Interpretation I performed an independent interpretation of an: Plain X-Ray Radiology Impression Discussion of test interpretation with radiology: I have reviewed the radiologist's reading. External Record Review External record reviewed: Inpatient record, Office record, Outpatient record, Prior outpatient labs, Prior outpatient radiology, Primary care record and Outs tommie ED record Tests considered The following testing was considered but not selected: As above Prescription Management I considered prescription management with: Pain Medication Chronic Conditions Patient?s care impacted by: Other Social Determinants Patient?s care significantly limited by Social Determinants of Health including: Other Social Determinant of Health Procedures Orthopedic Splinting/Casting Injury #1: Side: right Lower Extremity Injury Location: knee Lower Extremity Immobilizer: Sabino wrap Other Orthopedic Equipment: crutches Discharge Plan Discharge Clinical Impression: Gout Patient Disposition: Home, Self-Care Instructions: Low Purine Diet (ED), Gout (ED) Additional Instructions: Your x-ray shows a joint effusion. No fracture Wear Sabino wrap for compression and stability Prednisone as a steroid please take as prescribed until completion Naproxen as an anti-inflammatory/pain medication, take with food. In addition you may take Tylenol If area becomes red, increasingly swollen, you are unable to walk, or you have fevers return to the ED Follow up with your doctor Prescriptions: New prednisone 20 mg tablet 40 mg PO DAILY 5 Days Qty: 10 0RF naproxen 500 mg tablet 500 mg PO BID PRN (Reason: pain) 10 Days Qty: 20 0RF No Action atorvastatin 20 mg tablet 20 mg PO BEDTIME 90 Days Qty: 90 1RF fluticasone propion-salmeterol [Advair Diskus] 250-50 mcg/dose blister with device 1 inh inhalation BID Qty: 60 1RF albuterol sulfate 90 mcg/actuation aero powdr breath act w/sensor 1 inh inhalation Q4-6H PRN (Reason: shortness of breath or wheezing) Qty: 1 0RF allopurinol 100 mg tablet 100 mg PO DAILY 30 Days Qty: 30 2RF losartan 25 mg tablet 25 mg PO DAILY 90 Days Qty: 90 1RF citalopram 20 mg tablet 20 mg PO DAILY 90 Days Qty: 90 0RF Rx Instructions: Schedule next PCP appt for future refills hydroxyzine pamoate 25 mg capsule 25 mg PO DAILY Qty: 90 0RF Rx Instructions: Schedule next PCP appt for future refills amlodipine 10 mg tablet 10 mg PO DAILY Qty: 90 0RF Rx Instructions: Schedule next PCP appt for future refills ibuprofen 600 mg tablet 600 mg PO Q8H PRN (Reason: pain) Qty: 30 0RF acetaminophen 500 mg tablet 1,000 mg PO QID PRN (Reason: pain) Qty: 30 0RF colchicine 0.6 mg tablet 0.6 mg PO DAILY Qty: 30 0RF rosuvastatin 40 mg tablet 40 mg PO DAILY Referrals: Physician,Unknown J [Primary Care Provider] - 5 days Stand Alone Forms: Work/School Release Print Language: Maori
[2025-04-09 09:28] VITALS: BP 131/93; PULSE 76; RESP 14; TEMP 36.8; O2SAT 98
[2025-04-09 10:07] VITALS: BP 131/93; PULSE 76; RESP 14; TEMP 36.8; O2SAT 98
== END 2025-04-09 10:10 | disposition home or self-care (01) ==
PROVIDERS: Emergency Provider Emergency Medicine
DX: M10.9 Gout, unspecified (principal); M25.561 Pain in right knee; Z79.899 Other long term (current) drug therapy
CPT/HCPCS: 73562; 96372; 99284; J1885

== ENCOUNTER → 2025-04-09 08:28 | Outpatient (BNV) | payer BC, SELFPAY | PROVIDERS: Emergency Provider Emergency Medicine; Visit Provider Radiology Diagnostic Radiology | DX: M25.461 Effusion, right knee (principal) | CPT/HCPCS: 73562 ==

== ENCOUNTER 2025-04-25 08:24 | Day surgery (SDC) | payer BC, SELFPAY ==
[2025-04-23 09:42] VITALS: BMI 29.0
[2025-04-25] VITALS (7 sets, daily range): BP systolic 146–165; BP diastolic 93–107; PULSE 71–104; RESP 14–16; TEMP 36.4–37.4; O2SAT 95–100; BMI 27.2
[2025-04-25] MEDS: Lactated Ringers 1,000 ML 100 ML IVCONT (09:03)
--- NOTE | 2025-04-25 09:19 | MHC.SHP ---
Pre-Procedural Eval Section A - 24 Hr Update-Section A only Date of Service: 04/25/25 The patient is an INPATIENT: No Changes since office visit: Yes Patient answered all questions; No Cold of Flu in the past 2 weeks, No New Medical Problems and No Changes in Medication The patient has been examined within 24 hours of the surgical procedure. The History & Physical has been completed within 30 days and I have reviewed it.: No Section B - Complete if H&P > 30 days Chief Complaint: Unilateral inguinal hernia, without obstruction or Details of Present Illness: No change in symptoms of right inguinal hernia Relevant Family History (Specify if Yes): No Relevant Social History: None Present Medications: see Short Stay Collaborative assessment Medical History: Significant History (asthma, htn) History of Previous Operations: No relevant previous surgery Allergies: Allergies Allergy/AdvReac Type Severity Reaction Status Date / Time tramadol Allergy Unknown Unknown Verified 04/25/25 08:47 Review of Systems Sugical H&P ROS: Negative: Constitution, Cardiovascular, Respiratory, Neurological, Psychiatric, Hem-Onc, Allergic/Immunologic, Gastrointestinal, Genitourinary, Musculoskeletal, Integumentary, Endocrine and Eyes/Ears/Nose/Throat Exam Surgical H&P Exam: Normal: HEENT, Normal: Heart, Normal: Lungs, Normal: Extremities, Normal: Abdomen, Normal: Skin and Normal: Neurological Plan Diagnosis/Plan: Unchanged I have reviewed the history and physical and performed a pertinent physical examination on my patient. No changes have occurred unless specified. Time Spent With Patient Time: Total time managing care of this patient today ____ minutes.
--- NOTE | 2025-04-25 10:25 | P.CONAN_ITS ---
Documented by User: Alisha Vaughn NP 04/23/25 15:02 HPI - Anesthesia Eval Consult details Narrative: 45yo M for Right Hernia Inguinal Reducible with mesh PMFSH Active Problems Active Problems: All Active Problems Reducible right inguinal hernia (Acute) Simple renal cyst (Acute) Sleep apnea (Acute) Complex renal cyst (Acute) Gout (Acute) Dyslipidemia (Acute) Asthma (Acute) Anxiety (Acute) HTN (hypertension) (Acute) Past Medical History Medical History Acute knee pain Purpura Elevated liver enzymes Gout Asthma PTSD (post-traumatic stress disorder) Mild depression Anxiety HTN (hypertension) Family History Family History Father Diabetes mellitus HTN (hypertension) Mother HTN (hypertension) Anxiety Sister HTN (hypertension) Brother Sleep apnea Maternal Grandmother History of heart attack Breast cancer Brain aneurysm Maternal Grandfather No problems noted. Paternal Grandfather No problems noted. Paternal Grandmother Diabetes mellitus CVD (cardiovascular disease) Other Mental health disorder Surgical History Surgical History History of surgery Social History Social History Are you a primary career center advisor to a significant other at home: No Do you presently have visiting nurse or other home services: No Alcohol intake: current Alcohol intake frequency: a few times a week Alcohol type: beer Patient Tobacco Use Status: Never used Tobacco e-Cigarette/Vaping Use: Never Used Second Hand Smoke Exposure: No Use of substances other than those prescribed or required for medical reasons: No Have you been hit, kicked, punched, or otherwise hurt by someone within the past year? If so, by whom?: No Are you DNR?: No Advance Directives: No Advance Directives Information Provided: Yes Poor oral hygiene: No service: No Cognitive needs: No Hearing needs: No Vision needs: Yes (Glasses) Meds Allergies Allergy/AdvReac Type Severity Reaction Status Date / Time tramadol Allergy Unknown Unknown Verified 04/25/25 08:47 Home Medications ?Medication ?Instructions ?Recorded ?Confirmed ?Last Taken ?Type rosuvastatin 40 mg tablet 40 mg PO DAILY 03/15/25 04/25/25 Unknown History Exam Height,Weight and Vital Signs: Height 5 ft 10 in Weight 91.626 kg Pertinent Lab Results Pertinent Lab Results: Laboratory Tests 03/02/25 10:34 WBC 8.3 Hgb 14.7 Hct 44.2 Plt Count 227 Sodium 137 Potassium 4.4 Chloride 107 Carbon Dioxide 22 BUN 16 Creatinine 0.70 Assessment and Plan Assessment Anesthesia Assessment: Chart Reviewed Documented by User: Valerie Meléndez DO 04/25/25 10:27 HPI - Anesthesia Eval Consult details Narrative: 45yo M for Right Hernia Inguinal Reducible with mesh Reports that BP always runs high. HARSH not on CPAP PMFSH Past Medical History Medical History Acute knee pain Purpura Elevated liver enzymes Gout Asthma PTSD (post-traumatic stress disorder) Mild depression Anxiety HTN (hypertension) Family History Family History Father Diabetes mellitus HTN (hypertension) Mother HTN (hypertension) Anxiety Sister HTN (hypertension) Brother Sleep apnea Maternal Grandmother History of heart attack Breast cancer Brain aneurysm Maternal Grandfather No problems noted. Paternal Grandfather No problems noted. Paternal Grandmother Diabetes mellitus CVD (cardiovascular disease) Other Mental health disorder Family history of problems with anesthesia: No Surgical History Surgical History History of surgery History of Problems with Anesthesia: No Social History Social History Are you a primary career center advisor to a significant other at home: No Do you presently have visiting nurse or other home services: No Alcohol intake: current Alcohol intake frequency: a few times a week Alcohol type: beer Patient Tobacco Use Status: Never used Tobacco e-Cigarette/Vaping Use: Never Used Second Hand Smoke Exposure: No Use of substances other than those prescribed or required for medical reasons: No Have you been hit, kicked, punched, or otherwise hurt by someone within the past year? If so, by whom?: No Are you DNR?: No Advance Directives: No Advance Directives Information Provided: Yes Poor oral hygiene: No service: No Cognitive needs: No Hearing needs: No Vision needs: Yes (Glasses) Meds Allergies Allergy/AdvReac Type Severity Reaction Status Date / Time tramadol Allergy Unknown Unknown Verified 04/25/25 08:47 Home Medications ?Medication ?Instructions ?Recorded ?Confirmed ?Last Taken ?Type rosuvastatin 40 mg tablet 40 mg PO DAILY 03/15/25 04/25/25 Unknown History Exam Exam Date and Time: 04/25/25 1025 Height,Weight and Vital Signs: Height 5 ft 10 in Weight 91.626 kg Height 5 ft 10 in Weight 86 kg Vital Signs Temperature 99.0 F 04/25/25 08:50 Pulse Rate 93 04/25/25 08:50 Respiratory Rate 14 04/25/25 08:50 Blood Pressure 157/107 H 04/25/25 08:50 Pulse Oximetry 97 04/25/25 08:50 Oxygen Delivery Method Room Air 04/25/25 08:50 Temperature 99.0 F 04/25/25 08:50 Pulse Rate 93 04/25/25 08:50 Respiratory Rate 14 04/25/25 08:50 Blood Pressure 157/107 H 04/25/25 08:50 Pulse Oximetry 97 04/25/25 08:50 Oxygen Delivery Method Room Air 04/25/25 08:50 Airway Mallampati Class: II TM Dist: >3cm Neck ROM: Full Loose/Missing/Broken Teeth: No (patient denies any loose or broken teeth) Heart: S1S2 Lungs: CTAB Assessment and Plan Assessment Anesthesia Assessment: Anesthesia Plan Discussed and Chart Reviewed Final Anesthetic Review Family History of Problems with Anesthesia: No History of Problems with Anesthesia: No NPO: Yes ASA Class: II Final Preanesthetic Review: No Changes in Pt Med Stat, Meds/Allgs Chart Reviewed, Consent Obtained/Reviewed and Anes Risks/Benef Reviewed Patient Risk: Low Procedure Risk: Low Anesthetic Plan Anesthetic Plan: GA and Agree w/ Assess. and Plan Disposition: Standard PACU
--- NOTE | 2025-04-25 11:44 | W.PM.OPN ---
Operative Note Operative Note Date of Service: 04/25/25 Narrative: Preoperative diagnosis: Right inguinal hernia reducible Postoperative diagnosis: Same Procedure: Repair of right inguinal hernia with mesh Surgeon: Benja Avila MD Engineer And Geologist: Vladimir Patel PA-C Anesthesia: General LMA Indications for procedure: 45-year-old male patient presenting with a painful lump in the right groin. Workup revealed a fat containing small right inguinal hernia by ultrasound. Patient has requested repair of this reducible right inguinal hernia. Operative findings: Small fat containing right inguinal hernia indirect, no direct component Specimen: Lipoma of the cord Estimated blood loss: 2 mL Complications: None Procedure details: Patient was brought to the OR and placed in a supine position. After administering general anesthesia the patient's abdomen was prepped with ChloraPrep and draped in a sterile fashion. A surgical time-out was called the consent confirmed. Patient received preoperative antibiotics and Venodyne boots were in place. Local anesthesia consisting of 0.5% Sensorcaine was then infiltrated over the right inguinal ligament. A 5 cm incision was then made with a scalpel and carried down through subcutaneous tissue, past Hung's fascia up to the external oblique aponeurosis. Additional local was then infiltrated below the external oblique aponeurosis. This was then incised with a scalpel and widened with the Metzenbaum scissors. The spermatic cord was then dissected free from the surrounding inguinal canal and retracted using a Sodus drain. The floor of the inguinal canal was found to be intact. Fibers of the cremaster muscle were then and a small lipoma of the cord identified. No hernia sac could be identified. The lipoma was then dissected down to the internal ring, ligated were then excised. This was sent as a specimen. Attention was then directed to the floor of the inguinal canal which was grasped using an Allis clamp. Fibers of the internal oblique and transversalis were then incised with the electrocautery. The preperitoneal space was then entered. This was enlarged using an open Ray-Guillaume sponge. A medium PHS mesh was then obtained. The circular underlay was then deployed within the preperitoneal space. The overlay was then secured to the pubic tubercle, conjoined tendon, and shelving edge of the inguinal ligament using a 0 Polysorb suture. A slit was made in the mesh in the mesh wrapped around the spermatic cord at the internal ring. The mesh was then secured to the shelving edge of the inguinal ligament using the 0 Polysorb suture. The wrap was tight enough to allow only the tip of the index finger to pass. The remainder of the mesh was placed laterally below the external oblique aponeurosis. Wounds were then irrigated with saline solution and suctioned dry. External oblique aponeurosis was then closed using a running 2-0 Polysorb suture. Approximately 4 mL of Zenrelef was then instilled below the external oblique aponeurosis. Hung's fascia was then closed using interrupted 3-0 Polysorb sutures. Dermis was reapproximated using interrupted 3-0 Polysorb sutures. Skin was then closed using a running subcuticular 4-0 Polysorb suture. Sterile dressings consisting of Steri-Strips, 4 x 4 gauze and Tegaderm were then applied. The patient tolerated the procedure well. Sponge, instrument, and needle counts reported as correct. Patient was transferred to PACU in stable condition.
== END 2025-04-25 13:47 | disposition home or self-care (01) ==
PROVIDERS: Visit Provider Surgery
PROC: (CPT 49505; principal; 2025-04-25 10:40)
DX: K40.90 Unilateral inguinal hernia, without obstruction or gangrene, not specified as recurrent (principal); D17.6 Benign lipomatous neoplasm of spermatic cord; J45.909 Unspecified asthma, uncomplicated; I10 Essential (primary) hypertension; M10.9 Gout, unspecified; D69.2 Other nonthrombocytopenic purpura; F32.A Depression, unspecified; F43.10 Post-traumatic stress disorder, unspecified; R74.8 Abnormal levels of other serum enzymes; Z79.899 Other long term (current) drug therapy; Z79.1 Long term (current) use of non-steroidal anti-inflammatories (NSAID); Z79.51 Long term (current) use of inhaled steroids; Z88.5 Allergy status to narcotic agent; Z98.890 Other specified postprocedural states
CPT/HCPCS: 49505; 88304; C1781; C9088; J0690; J1100; J1885; J2003; J2250; J2371; J2405; J2704; J3010

== ENCOUNTER → 2025-04-25 08:24 | Outpatient (BNV) | payer BC, SELFPAY | PROVIDERS: Visit Provider Surgery | DX: K40.90 Unilateral inguinal hernia, without obstruction or gangrene, not specified as recurrent (principal) | CPT/HCPCS: 49505 ==

== ENCOUNTER 2025-05-02 08:24 | Outpatient (AMB) | payer BC, SELFPAY ==
--- OUTSIDE RECORDS SUMMARY | 2025-05-02 08:34 | XMS_ITS | Clinical Summary ---
Author Organization [facility] it Address [address] [place] [address] Care Team Providers Care Work Study Student Name Role Phone Unavailable Primary Care Provider Unavailabl e Surgical History Surgery Date Site/Laterality Comments OTHER SURGICAL HISTORY PROCEDURE: [place] UNLISTED PROCEDURE LUNGS & PLEURA ESOPHAGOGASTRODUODENOSCOPY 10/04/09 PROCEDURE: [place] ESOPHAGOGASTRODUODENOSCOPY TRANSORAL DIAGNOSTIC; COMMENT: normal Medical History [...]
--- NOTE | 2025-05-02 08:51 | A.OFFVIS_ITS ---
Vital Signs 05/02/25 08:53 Height 5 ft 10 in Weight 194 lb BMI 27.8 BP 136/86 Blood Pressure Location Lt brachial Position Sitting Pulse 76 Intake Visit Reasons: s/p RIH w/mesh Intake Note: Pt states, I'm here for follow up from my hernia surgery. c/o swelling and bruising of testicle on right. Thermostat Machine Tender Required: No Allergies tramadol Adverse Reaction (Severe, Verified 05/02/25 08:56) severe stomach pain Medication List - Last Reconciled 05/02/25 by Mehdi Lion RN acetaminophen 1,000 mg (2 x 500 mg) PO QID PRN albuterol sulfate 90 mcg/actuation 1 inh inhalation Q4-6H PRN allopurinol 100 mg PO DAILY 30 days amlodipine 10 mg PO DAILY atorvastatin 20 mg PO BEDTIME 90 days citalopram 20 mg PO DAILY 90 days fluticasone propion-salmeterol 250-50 mcg/dose (Advair Diskus) 1 inh inhalation BID hydroxyzine pamoate 25 mg PO DAILY ibuprofen 600 mg PO Q8H PRN losartan 25 mg PO DAILY 90 days naproxen 500 mg PO BID PRN 10 days prednisone 40 mg (2 x 20 mg) PO DAILY 5 days rosuvastatin 40 mg PO DAILY HPI HPI s/p RIH w/mesh: Details: Patient reports that overall he is doing well. He is experiencing some pain at the incision site and swelling of the right scrotum and around the incision site. He denies fever, chills, discharge, shortness of breath, chest pain. The patient reports he used oxycodone for a few days but was worried about constipation so he began using ibuprofen and Tylenol. He reports he is having daily bowel movements. His appetite is at baseline. Denies heavy lifting/strenuous exercise. He has no other concerns [facility] Medical History Acute knee pain Purpura Elevated liver enzymes Gout Asthma PTSD (post-traumatic stress disorder) Mild depression Anxiety HTN (hypertension) Surgical History (Updated 05/02/25 @ 09:12 by Vladimir Patel PA-C) Hx of hernia repair History of surgery Family History Father Diabetes mellitus HTN (hypertension) Mother HTN (hypertension) Anxiety Sister HTN (hypertension) Brother Sleep apnea Maternal Grandmother History of heart attack Breast cancer Brain aneurysm Maternal Grandfather No problems noted. Paternal Grandfather No problems noted. Paternal Grandmother Diabetes mellitus CVD (cardiovascular disease) Other Mental health disorder Social History Are you a primary healthcare market consultant to a significant other at home: No Do you presently have visiting nurse or other home services: No Alcohol intake: current Alcohol intake frequency: a few times a week Alcohol type: beer Patient Tobacco Use Status: Never used Tobacco e-Cigarette/Vaping Use: Never Used Second Hand Smoke Exposure: No service: No Cognitive needs: No Hearing needs: No Vision needs: Yes (Glasses) Review of Systems Const All systems reviewed & are unremarkable except as noted in HPI and below Denies chills and Denies fever(s) GI Denies constipation and Denies diarrhea Reports scrotal swelling Physical Exam Vital Signs: BMI result Body Mass Index 27.8 Const General: healthy appearing, comfortable and no acute distress Orientation/consciousness: patient oriented x3 Resp Effort & Inspection: normal respiratory effort and able to speak in complete sentences GI Inspection: No distended Palpation (GI): Soft to palpation, not firm, Tenderness to palpation present (GI) (Incisional) and no guarding Other: Incision site appears clean dry and intact. There is mild edema at the incision site. No surrounding erythema, no palpable fluid collection. Mildly tender to palpation Scrotum: scrotal swelling (Moderate) on the right Neuro General: patient oriented x3 Assessment & Plan Assessment & Plan (1) S/P inguinal hernia repair: Comment: Right Code(s): Z98.890 - Other specified postprocedural states; Z87.19 - Personal history of other diseases of the digestive system Category: Surgical Plan 45-year-old male s/p right inguinal hernia repair with mesh on 04/25/2025 returns to the office for one-week routine follow-up. Patient is overall doing well. Experiencing appropriate incisional site pain. Recommended continuing ibuprofen or Tylenol as needed. Patient also experiencing moderate scrotal swelling and swelling of the incision site. I reassured him that this is normal at this postoperative stage and should decrease over time. Patient's bowel function and appetite are at baseline. The incision site appears to be healing well no surrounding erythema or palpable fluid collection. No current concern for infection. We will continue with activity restrictions, no heavy lifting greater than 15 lb and no strenuous exercise. Patient will follow-up in 3 weeks for 1 month postop visit. Patient can return sooner as needed with any concerns. Surgical specimen pathology is as follows ?mature lobulated adipose tissue consistent with lipoma?. Coding Level of Care Code Global (43840) Diagnoses S/P inguinal hernia repair Z98.890; Z87.19
[2025-05-02 08:53] VITALS: BP 136/86; PULSE 76; BMI 27.8
== END 2025-05-02 09:15 | disposition home or self-care (01) ==
LOC: HO.HGS 08:24
DX: Z98.890 Other specified postprocedural states (principal); Z87.19 Personal history of other diseases of the digestive system
CPT/HCPCS: 99024

== ENCOUNTER 2025-05-27 17:19 | Emergency (ER) | payer BC, SELFPAY ==
--- NOTE | ~2025-05-27 | CT_ITS ---
CLINICAL HISTORY: sbo? recent R. inguinal herina repair CT abdomen and pelvis with contrast Comparison: CT/NE/SR - CT ABDOMEN WO/W IV CON - 06/17/23 10:02 EDT Findings: No consolidation or effusion. Hepatomegaly with steatosis. Mild left hydronephrosis with tapering of the ureteropelvic junction suggesting ureteropelvic junction obstruction. Underlying stricture is possible. Left renal parenchymal edema [id number]-right perinephric fluid stranding. Consider urology consult. No urolithiasis. Duodenal and proximal small bowel mural thickening. Rectosigmoid mural thickening. No bowel obstruction. Scattered colonic diverticulosis without diverticulitis or colitis. Normal appendix. Right groin skin thickening/scarring, with inflammatory changes in the right groin status post hernia repair. No discrete collections. Circumferential bladder wall thickening. The bones are intact. IMPRESSION: 1. Suspect left ureteropelvic junction obstruction with mild hydronephrosis. 2. Circumferential bladder wall thickening may be related to degree of underdistention or mild cystitis. 3. Possible enterocolitis and proctitis. This document has been electronically signed by: Shree Sr MD on 05/27/2025 22:15:58
[2025-05-27 17:42] VITALS: BP 165/104; PULSE 88; RESP 16; TEMP 36.9; O2SAT 98; BMI 28.0
--- NOTE | 2025-05-27 17:44 | ED_ITS ---
HPI - General Adult General Chief complaint: Abdominal Pain Stated complaint: right side abd pain Time Seen by Provider: 05/27/25 19:06 Source: patient Limitations: no limitations History of Present Illness ED Provider: Dianelys Rapp PA-C HPI narrative: 45-year-old male presents with right lower abdominal pain x3 days. Patient states he is status post right inguinal hernia repair of the beginning of April. Over the past 3 days, he has developed right lower abdominal discomfort with movement. Pain described as a ?tugging sensation?. Associated abdominal distention and nausea at times. Denies inability to pass flatus or constipation. Denies diarrhea, dysuria, hematuria or new testicular pain and swelling. Related Data Home Medications ?Medication ?Instructions ?Recorded ?Confirmed rosuvastatin 40 mg tablet 40 mg PO DAILY 03/15/2504/22 Previous Rx's ?Medication ?Instructions ?Recorded atorvastatin 20 mg tablet 20 mg PO BEDTIME 90 days #90 tabs 11/17/21 fluticasone 250 mcg-salmeterol 50 1 inh inhalation BID #60 ea 02/25/22 mcg/dose blistr powdr for inhalation (Advair Diskus) albuterol sulfate 90 mcg/actuation 1 inh inhalation Q4 -6H PRN 03/01/22 breath activated powder shortness of breath or wheez ing #1 inhaler,sensor ea allopurinol 100 mg tablet 100 mg PO DAILY 30 days #30 tabs 12/09/22 losartan 25 mg tablet 25 mg PO DAILY 90 days #90 t abs 12/16/22 ibuprofen 600 mg tablet 600 mg PO Q8H PRN pain #30 t abs 02/17/23 acetaminophen 500 mg tablet 1,000 mg (2 x 500 mg) PO Q ID PRN 04/14/23 pain #30 tabs citalopram 20 mg tablet 20 mg PO DAILY 90 days #90 t abs 05/28/23 hydroxyzine pamoate 25 mg capsule 25 mg PO DAILY #90 c aps 07/18/23 amlodipine 10 mg tablet 10 mg PO DAILY #90 tabs 07/24 06/13 naproxen 500 mg tablet 500 mg PO BID PRN pain 10 da ys #20 04/09/25 tabs prednisone 20 mg tablet 40 mg (2 x 20 mg) PO DAILY 5 days 04/09/25 #10 tabs ketorolac 10 mg tablet 10 mg PO Q6H PRN pain #20 ta bs 05/28/25 Allergies Allergy/AdvReac Type Severity Reaction Status Date / Time tramadol AdvReac Severe severe Verified 05/27/25 17:42 stomach pain Review of Systems 2 Review of Systems: Yes all other systems are reviewed and are negative Constitutional: Constitutional: Denies fatigue and Denies fever(s) Cardiovascular: Cardiovascular: Denies chest pain and Denies dyspnea Respiratory: Respiratory: Denies dyspnea Gastrointestinal: Gastrointestinal: Reports abdominal pain, Denies constipation, Denies diarrhea, Reports nausea and Denies vomiting Genitourinary: Genitourinary: Denies genital pain, Denies dysuria, Denies flank pain and Denies testicular pain Musculoskeletal: Musculoskeletal: Denies back pain Endocrine: Endocrine: Denies fatigue PMFSH Past Medical History Attestation statement: The following information was validated with the patient. Medical History (Updated 05/28/25 @ 00:37 by SARI Braga) Acute knee pain Purpura Elevated liver enzymes Gout Asthma PTSD (post-traumatic stress disorder) Mild depression Anxiety HTN (hypertension) Surgical History (Updated 05/02/25 @ 09:12 by Vladimir Patel PA-C) Hx of hernia repair History of surgery Family History Family History Father Diabetes mellitus HTN (hypertension) Mother HTN (hypertension) Anxiety Sister HTN (hypertension) Brother Sleep apnea Maternal Grandmother History of heart attack Breast cancer Brain aneurysm Maternal Grandfather No problems noted. Paternal Grandfather No problems noted. Paternal Grandmother Diabetes mellitus CVD (cardiovascular disease) Other Mental health disorder Social History Social History Are you a primary ostomy care nurse to a significant other at home: No Do you presently have visiting nurse or other home services: No Alcohol intake: current Alcohol intake frequency: a few times a week Alcohol type: beer Patient Tobacco Use Status: Never used Tobacco e-Cigarette/Vaping Use: Never Used Second Hand Smoke Exposure: No Advance Directives: No Advance Directives Information Provided: Yes service: No Cognitive needs: No Hearing needs: No Vision needs: Yes (Glasses) Physical Exam ED Vital Signs: Vital Signs - 24 hr 05/27/25 17:42 05/27/25 18:32 05/27/25 21:12 Temperature 98.5 F 98 F 97.8 F Pulse Rate 88 82 85 Respiratory Rate 16 20 16 Blood Pressure 165/104 H 156/102 H 166/104 H Pulse Oximetry 98 97 97 Oxygen Delivery Method Room Air Room Air Room Air 05/27/25 23:07 Temperature 98.0 F Pulse Rate 69 Respiratory Rate 16 Blood Pressure 146/97 H Pulse Oximetry 98 Oxygen Delivery Method Room Air BMI result Body Mass Index 28.0 Const Other: Alert well-appearing Orientation/consciousness: patient oriented x3 Resp Effort & Inspection: normal respiratory effort Cardio Other: Normal peripheral perfusion GI Other: Abdomen is soft, objectively nondistended, mild tenderness mid to lower right abdomen without any guarding General: Yes no CVA tenderness Back/Spine/Pelvis Back: no CVA tenderness Skin Other: Warm dry no rash Neuro General: patient oriented x3, gait normal, no focal motor deficits and CN's II- XI intact bilaterally Psych Other: Cooperative Course Course Course Narrative: This is a rapid medical exam performed by Ranjith Ernst NP: Additional HPI, ROS, PE not included below will be deferred to primary provider. Patient is a 45-year-old male s/p inguinal hernia repair with Dr. Avila on 04/25 presenting with right lower quadrant pain for the past 3 days, just to right of umbilicus. Pain gradually worsening, states I can feel something there. Nausea without vomiting or diarrhea. Denies urinary sxs. Plan: Labs, UA, imaging deferred to primary provider Reevaluation(s) Reevaluation #1: I am reviewing the CT read, there are numerous findings that do not correlate with the patient's active symptoms. He does have some inflammatory changes surrounding the surgical site. However they are comments made about potential sigmoid colitis, proctitis, bilateral perinephric stranding, left hydronephrosis, concern for UTI etc.. I reassessed the patient, again asked him where his symptoms are. He has no rectal pain to suggest proctitis, he has no CVA tenderness on exam, again no urinary symptoms in the urine sample is clean. Again he is not having any active GI symptoms, including diarrhea. We will be calling back Radiology to speak with the radiologist who read the report. Reevaluation #2: Speaking with the radiologist, he states many of the findings can be nonspecific, including the perinephric stranding. He also reviewed prior CT scan of the abdomen from 2022, which I had reviewed as well, the patient has similar findings in regard to the kidneys. Medications Administered Discontinued Medications Generic Name Dose Route Start Last Admin Trade Name Asad PRN Reason Stop Dose Admin Diatrizoate Meglum/Diatrizoate Sod 30 ml 05/27/25 21:30 05/27/25 21:31 Diatrizoate Meglumine, Sodium 30 Ml Solution PO 05/27/25 21:31 30 ml ONCE ONE Administration Sodium Chloride 1,000 mls @ 999 mls/hr 05/27/25 19:15 05/27/25 20:54 Ns IV 05/27/25 20:15 Infused .Q1H1M CAN Infusion Iohexol 85 ml 05/27/25 21:31 05/27/25 21:32 Iohexol 350 Mg/Ml 100 Ml Infus..Btl IV 05/27/25 21:32 85 ml ONCE ONE Administration Ketorolac Tromethamine 15 mg 05/28/25 00:14 05/28/25 00:23 Ketorolac Tromethamine 15 Mg/Ml Vial IVPUSH 05/28/25 00:15 15 mg ONCE ONE Administration Medical Decision Making Medical Decision Making MDM Narrative: 45-year-old male presents with right lower abdominal pain x3 days. Patient states he is status post right inguinal hernia repair of the beginning of April. Over the past 3 days, he has developed right lower abdominal discomfort with movement. Pain described as a ?tugging sensation?. Associated abdominal distention and nausea at times. Denies inability to pass flatus or constipation. Denies diarrhea, dysuria, hematuria or new testicular pain and swelling. Problem: Recent surgery History: Per patient I have considered the following differential diagnoses: Bowel obstruction, postsurgical complication, intra-abdominal abscess, renal colic, torsion, Plan: Patient states he feels distended, he is having vague abdominal pain. Given recent surgery, we will place an order for a CT scan to rule out bowel obstruction. Although, he truly does not have obstructive symptoms. Could have a postsurgical complication. Doubtful to be an intra-abdominal abscess, his abdominal exam was 2 benign. Thought about renal colic, however he has no related symptoms. Thought about torsion, however he has no testicular pain or swelling. I have independently reviewed the following tests: labs: No leukocytosis, not anemic, no electrolyte abnormality, urine not infected CT abd: MPRESSION: 1. Suspect left ureteropelvic junction obstruction with mild hydronephrosis. 2. Circumferential bladder wall thickening may be related to degree of underdistention or mild cystitis. 3. Possible enterocolitis and proctitis. Lab Data 05/27/25 18:01 05/27/25 18:01 Labs: Lab Results 05/27/25 05/27/25 Range/Units 18:01 18:35 WBC 9.4 (4.8-10.8) X10*3/uL RBC 4.80 (4.60-5.80) X10*6/uL Hgb 14.3 (14.0-18.0) g/dl Hct 40.9 L (42.0-52.0) % MCV 85.2 (80.0-98.0) fL MCH 29.8 (27.0-33.0) pg MCHC 35.0 (31.0-36.0) g/dl RDW 13.3 (11.0-16.0) % Plt Count 234 (160-400) X10*3/uL MPV 9.8 (9.4-12.4) fL Immature Gran % (Auto) 0.3 (0.0-0.4) % Neut % (Auto) 61.9 (45-73) % Lymph % (Auto) 22.2 (20-40) % [place] % (Auto) 13.0 H (2-11) % Eos % (Auto) 2.0 (0-4) % Baso % (Auto) 0.6 (0-2) % Lymph # (Auto) 2.1 (1.2-4.9) X10*3/uL [place] # (Auto) 1.2 (0.1-1.2) X10*3/uL Eos # (Auto) 0.2 (0.0-0.4) X10*3/uL Baso # (Auto) 0.1 (0.0-0.2) X10*3/uL Abs Immat Gran (auto) 0.03 (0.00-0.03) X10*3/uL Absolute Neuts (auto) 5.8 (2.0-8.3) x10*3/uL Absolute Nucleated RBC 0.000 (0.0-0.012) X10*3/uL Nucleated RBC % (auto) 0.0 (0.0-0.2) /100WBC Sodium 143 (135-145) mmol/L Potassium 4.0 (3.3-5.1) mmol/L Chloride 104 (96-108) mmol/L Carbon Dioxide 28 (22-29) mmol/L Anion Gap 15 (12-20) BUN 15 (9-16) mg/dL Creatinine 0.87 (0.5-1.4) mg/dL Estim Creat Clear Calc 118.8 Estimated GFR > 60 Random Glucose 97 (60-115) mg/dL Calcium 9.3 (8.4-10.2) mg/dL Total Bilirubin 0.8 (0.0-1.0) mg/dL AST 40 H (5-37) U/L ALT 45 H (0-40) U/L Alkaline Phosphatase 95 (39-117) U/L Total Protein 7.4 (6.5-8.0) g/dL Albumin 4.8 (3.5-5.0) g/dL Urine Color Yellow Urine Appearance Clear Urine pH 8.0 (5.0-9.0) Ur Specific [place] 1.025 (1.005-1.025) Urine Protein Trace (Neg-Trace) mg/dL Urine Glucose (UA) Negative (Negative) mg/dL Urine Ketones Negative (Negative) mg/dL Urine Blood Negative (Negative) Urine Nitrite Negative (Negative) Ur Leukocyte Esterase Negative (Negative) Discharge Plan Discharge Clinical Impression: Abdominal pain, right lower quadrant Patient Disposition: Home, Self-Care Instructions: Abdominal Pain (ED) Additional Instructions: All of your screening labs were normal including a urinalysis. The CT scan revealed that you have postsurgical inflammation involving the site of the inguinal hernia repair. Use the ketorolac as needed for your discomfort. Make sure to take the medication with food. Keep your pending surgical a follow up appointment scheduled for next week. Return precautions for the onset of fever, worsening severe abdominal pain, intractable vomiting, or onset of other new gastrointestinal related symptoms; IE diarrhea. Develop any of these symptoms seek medical attention. Prescriptions: New ketorolac 10 mg tablet 10 mg PO Q6H PRN (Reason: pain) Qty: 20 0RF Rx Instructions: maximum total duration of 5 days from all oral, intranasal, or parenteral formulations. The patient received an IV dose of Toradol here in the emergency room No Action atorvastatin 20 mg tablet 20 mg PO BEDTIME 90 Days Qty: 90 1RF fluticasone propion-salmeterol [Advair Diskus] 250-50 mcg/dose blister with device 1 inh inhalation BID Qty: 60 1RF albuterol sulfate 90 mcg/actuation aero powdr breath act w/sensor 1 inh inhalation Q4-6H PRN (Reason: shortness of breath or wheezing) Qty: 1 0RF allopurinol 100 mg tablet 100 mg PO DAILY 30 Days Qty: 30 2RF losartan 25 mg tablet 25 mg PO DAILY 90 Days Qty: 90 1RF citalopram 20 mg tablet 20 mg PO DAILY 90 Days Qty: 90 0RF Rx Instructions: Schedule next PCP appt for future refills hydroxyzine pamoate 25 mg capsule 25 mg PO DAILY Qty: 90 0RF Rx Instructions: Schedule next PCP appt for future refills amlodipine 10 mg tablet 10 mg PO DAILY Qty: 90 0RF Rx Instructions: Schedule next PCP appt for future refills ibuprofen 600 mg tablet 600 mg PO Q8H PRN (Reason: pain) Qty: 30 0RF prednisone 20 mg tablet 40 mg PO DAILY 5 Days Qty: 10 0RF naproxen 500 mg tablet 500 mg PO BID PRN (Reason: pain) 10 Days Qty: 20 0RF acetaminophen 500 mg tablet 1,000 mg PO QID PRN (Reason: pain) Qty: 30 0RF rosuvastatin 40 mg tablet 40 mg PO DAILY Stand Alone Forms: Work/School Release Print Language: Tajik
[2025-05-27 18:05] LABS: MANUAL DIFF FLAG NO
[2025-05-27 18:06] LABS: Hematocrit 40.9 % (42.0-52.0); Hemoglobin 14.3 g/dl (14.0-18.0); Imm Gran Abs Auto 0.03 X10*3/uL (0.00-0.03); Imm Gran Pct Auto 0.3 % (0.0-0.4); Lymphocytes Absolute Auto 2.1 X10*3/uL (1.2-4.9); Mean Corpuscular HGB Conc 35.0 g/dl (31.0-36.0); Mean Corpuscular Hemoglobin 29.8 pg (27.0-33.0); Mean Corpuscular Volume 85.2 fL (80.0-98.0); NRBC Abs Auto 0.000 X10*3/uL (0.0-0.012); NRBC Pct Auto 0.0 /100WBC (0.0-0.2); Platelet Count 234 X10*3/uL (160-400); Red Blood Count 4.80 X10*6/uL (4.60-5.80); White Blood Count 9.4 X10*3/uL (4.8-10.8)
[2025-05-27 18:19] LABS: Alanine Aminotransferase 45 U/L (0-40); Albumin Level 4.8 g/dL (3.5-5.0); Alkaline Phosphatase 95 U/L (39-117); Anion Gap 15 (12-20); Aspartate Amino Transferase 40 U/L (5-37); Blood Urea Nitrogen 15 mg/dL (9-16); Calcium 9.3 mg/dL (8.4-10.2); Carbon Dioxide 28 mmol/L (22-29); Chloride 104 mmol/L (96-108); Creatinine Clr Calc Pharmacy 118.8; Estimated Glomerular Filt Rate > 60; Potassium 4.0 mmol/L (3.3-5.1); Sodium 143 mmol/L (135-145); Total Protein 7.4 g/dL (6.5-8.0)
--- NOTE | 2025-05-27 18:20 | PC.NURSE ---
Addendum entered by Argenis Graves RN 05/27/25 18:26: patient states he has right sided inguinal hernia repair x1mo ago Original Note: patient presents to Ed with rlq pain, patient states its 5/10 and is getting gradually worse. patient states pain is worse with palpation. patient states he feels something when he pushes on his abdomen where he is having pain. patient states he has nausea but no vomiting. patient denies any fevers at home.
--- OUTSIDE RECORDS SUMMARY | 2025-05-27 18:27 | XMS_ITS | Clinical Summary ---
Author Organization [facility] [address] it Address [address] [place] [address] Care Team Providers Care Cold Working Inspector Name Role Phone Unavailable Primary Care Provider Unavailabl e Surgical History Surgery Date Site/Laterality Comments OTHER SURGICAL HISTORY PROCEDURE: [place] UNLISTED PROCEDURE LUNGS & PLEURA ESOPHAGOGASTRODUODENOSCOPY 10/04/09 PROCEDURE: [place] ESOPHAGOGASTRODUODENOSCOPY TRANSORAL DIAGNOSTIC; COMMENT: normal Medical History [...]
[2025-05-27 18:32] VITALS: BP 156/102; PULSE 82; RESP 20; TEMP 36.6; O2SAT 97
[2025-05-27 18:41] LABS: Appearance Urine Clear; Glucose Urine UA Negative (Negative); PH 8.0 (5.0-9.0); Specific Gravity - Urine 1.025 (1.005-1.025)
[2025-05-27 21:12] VITALS: BP 166/104; PULSE 85; RESP 16; TEMP 36.6; O2SAT 97
[2025-05-27] MEDS: iohexoL 350 MG/ML 100 ML INFUS..BTL 85 ML IV (21:32)
[2025-05-27 23:07] VITALS: BP 146/97; PULSE 69; RESP 16; TEMP 36.7; O2SAT 98
[2025-05-28 01:04] VITALS: BP 149/107; PULSE 78; RESP 18; TEMP 36.6; O2SAT 97
[2025-05-28 01:05] VITALS: BP 149/107; PULSE 78; RESP 18; TEMP 36.6; O2SAT 97
== END 2025-05-28 01:16 | disposition home or self-care (01) ==
PROVIDERS: Registered Nurse Emergency; Emergency Provider Emergency Medicine
DX: R10.31 Right lower quadrant pain (principal); R10.2 Pelvic and perineal pain; R11.0 Nausea; Z79.899 Other long term (current) drug therapy
CPT/HCPCS: 36415; 74177; 80053; 81003; 85025; 96361; 96374; 99284; 99285; J1885; Q9967

== ENCOUNTER → 2025-05-27 19:11 | Outpatient (BNV) | payer BC, SELFPAY | PROVIDERS: Emergency Provider Emergency Medicine; Visit Provider Radiology Diagnostic Radiology | DX: N32.89 Other specified disorders of bladder (principal) | CPT/HCPCS: 74177 ==

== ENCOUNTER 2025-05-30 12:34 | Outpatient (AMB) | payer BC, SELFPAY ==
[2025-05-30 13:03] VITALS: BP 124/66; PULSE 76; BMI 28.7
--- NOTE | 2025-05-30 13:03 | A.OFFVIS_ITS ---
Vital Signs 05/30/25 13:03 Height 5 ft 10 in Weight 200 lb BMI 28.7 BP 124/66 Blood Pressure Location Lt brachial Position Sitting Pulse 76 Intake Visit Reasons: post RIH & ER follow up 05/28/25 Intake Note: Pt states, I'm here for my last post op visit. pt is back to work. States he was in the ED Wednesday for abdominal pain and was told he has inflammation. Allergies tramadol Adverse Reaction (Severe, Verified 05/30/25 13:06) severe stomach pain Medication List - Last Reconciled 05/30/25 by Mehdi Lion, RN acetaminophen 1,000 mg (2 x 500 mg) PO QID PRN albuterol sulfate 90 mcg/actuation 1 inh inhalation Q4-6H PRN allopurinol 100 mg PO DAILY 30 days amlodipine 10 mg PO DAILY atorvastatin 20 mg PO BEDTIME 90 days citalopram 20 mg PO DAILY 90 days fluticasone propion-salmeterol 250-50 mcg/dose (Advair Diskus) 1 inh inhalation BID hydroxyzine pamoate 25 mg PO DAILY ibuprofen 600 mg PO Q8H PRN losartan 25 mg PO DAILY 90 days naproxen 500 mg PO BID PRN 10 days prednisone 40 mg (2 x 20 mg) PO DAILY 5 days rosuvastatin 40 mg PO DAILY HPI HPI post RIH & ER follow up 05/28/25: Details: Patient overall doing well reports he was seen in the ED for abdominal pain about a week ago and was told that it was likely because of the surgery. Reports he did a CAT scan in which they saw normal changes related to surgical intervention. He states that his pain has improved since that visit and has no other concerns at this time. He returned to work today CT really has to do any type of heavy lifting. States his scrotal swelling from last visit has improved. He does still feel occasional tugging and mild pain with certain motion. He is wondering what he can do for the firmness that he feels under the incision site [facility] Medical History (Updated 05/29/25 @ 00:01 by Darrel Clark) Acute knee pain Purpura Elevated liver enzymes Gout Asthma PTSD (post-traumatic stress disorder) Mild depression Anxiety HTN (hypertension) Surgical History (Updated 05/02/25 @ 09:12 by Vladimir Patel PA-C) Hx of hernia repair History of surgery Family History Father Diabetes mellitus HTN (hypertension) Mother HTN (hypertension) Anxiety Sister HTN (hypertension) Brother Sleep apnea Maternal Grandmother History of heart attack Breast cancer Brain aneurysm Maternal Grandfather No problems noted. Paternal Grandfather No problems noted. Paternal Grandmother Diabetes mellitus CVD (cardiovascular disease) Other Mental health disorder Social History Are you a primary career development coordinator/teacher to a significant other at home: No Do you presently have visiting nurse or other home services: No Alcohol intake: current Alcohol intake frequency: a few times a week Alcohol type: beer Patient Tobacco Use Status: Never used Tobacco e-Cigarette/Vaping Use: Never Used Second Hand Smoke Exposure: No service: No Cognitive needs: No Hearing needs: No Vision needs: Yes (Glasses) Review of Systems Const All systems reviewed & are unremarkable except as noted in HPI and below Physical Exam Vital Signs: Last Vital Signs Pulse 76 05/30/25 13:03 BP 124/66 05/30/25 13:03 BMI result Body Mass Index 28.7 Const General: comfortable and no acute distress Orientation/consciousness: patient oriented x3 Resp Effort & Inspection: normal respiratory effort and able to speak in complete sentences GI Other: Right inguinal hernia repair site appears to be healing well, no surrounding erythema, nontender. Appropriate firmness likely scarring as the wound heals. No evidence of recurrence with increased abdominal pressure Inspection: No distended Palpation (GI): Soft to palpation, not firm, nontender, no guarding and not rigid Neuro General: patient oriented x3 Assessment & Plan Assessment & Plan (1) S/P inguinal hernia repair: Comment: Right Code(s): Z98.890 - Other specified postprocedural states; Z87.19 - Personal history of other diseases of the digestive system Category: Medical Plan 45-year-old male presenting to the office for routine one-month follow-up following right inguinal hernia repair with mesh on 04/25/2025. Overall patient is doing well. He did have an episode of pain about a week ago for which he went to the emergency department where there was no acute cause found. I reviewed the imaging which shows appropriate postsurgical changes without concerning etiology. I reassured the patient that the sensation he feels of tugging is normal for this stage of postoperative care and that this should go away with time. On exam the incision appears to be healing well no concern for infection, there was no recurrence with increased abdominal pressure. There is a mild firmness it is likely a scar of the abdominal wall at the site of the incision. I reassured him that this will likely go away with time. I recommended that he can do warm compress or gentle massage as needed and if this is concerning however he states that this is not really a bother for him and we will just let it run its course. At this point the patient no longer requires activity restrictions. I recommended that he started half of what is his normal daily activity and slowly ramp back up to his baseline level of activity. He is able to returned to work without restrictions. Patient no longer requiring rou barrington follow up. He can follow-up as needed for any concerns in the future. Coding Level of Care Code Est Pt Level 3 (32211) Diagnoses S/P inguinal hernia repair Z98.890; Z87.19
--- OUTSIDE RECORDS SUMMARY | 2025-05-30 13:26 | XMS_ITS | Clinical Summary ---
Author Organization [facility] it Address [address] [place] [address] Care Team Providers Care Watch Repair Technician Name Role Phone Unavailable Primary Care Provider Unavailabl e Surgical History Surgery Date Site/Laterality Comments OTHER SURGICAL HISTORY PROCEDURE: TN UNLISTED PROCEDURE LUNGS & PLEURA ESOPHAGOGASTRODUODENOSCOPY 10/04/09 PROCEDURE: TN ESOPHAGOGASTRODUODENOSCOPY TRANSORAL DIAGNOSTIC; COMMENT: normal Medical History [...] 5 Years) and At-Risk Patients (6 to 49 Years) (1 of 2 - PCV) 1998 Cholesterol Screening (Lipid Panel) 07/17/2024 Colorectal Cancer Screening: Colonoscopy 07/17/2024 Depression Screening 07/17/2024 HIV Screening 07/17/2024 Hepatitis C Screening 07/17/2024 Hypertension/CHF/CAD Annual BMP Blood Test 07/17/2024 Social Influencers of Health Screening 07/17/2024 COVID-19 Vaccine ( season) 2024 Influenza Vaccine (#1) 2025 3, 09/22/2012, 09/24/2011, Additional history exists HIB Vaccines [...]
== END 2025-05-30 13:13 | disposition home or self-care (01) ==
LOC: HO.HGS 12:34
PROVIDERS: PCP Nurse Practitioner Family
DX: Z98.890 Other specified postprocedural states (principal); Z87.19 Personal history of other diseases of the digestive system
CPT/HCPCS: 99024

== ENCOUNTER 2025-07-18 11:30 | Emergency (ER) | payer BC, SELFPAY ==
[2025-07-18 11:43] VITALS: BP 155/105; PULSE 90; RESP 18; TEMP 36.9; O2SAT 98; BMI 29.4
--- NOTE | 2025-07-18 11:45 | ED_ITS ---
HPI - Allergic Reaction General Chief complaint: General Medical Stated complaint: Swelling Bee Sting on Face 07/18/25 Time Seen by Provider: 07/18/25 17:54 Source: patient Mode of arrival: ambulatory Limitations: no limitations History of Present Illness ED Provider: Migdalia Aldana PA-C HPI narrative: Patient is a 45 year old assigned male at with a history of asthma, anxiety, HTN, and gout presenting to the emergency department today with left lower eye lid swelling and chest tightness. Patient states that he was stung by a bee in the left yazdanism area earlier today and has left lower eye lid swelling and chest tightness. Patient denies any other complaints at this time. Patient denies any shortness of breath, difficulty breathing, difficulty swallowing, or itching in the mouth or throat. Patient states that he is not allergic to bee or insect stings. Related Data Home Medications ?Medication ?Instructions ?Recorded ?Confirmed rosuvastatin 40 mg tablet 40 mg PO DAILY 03/15/2508/16 Previous Rx's ?Medication ?Instructions ?Recorded atorvastatin 20 mg tablet 20 mg PO BEDTIME 90 days #90 tabs 11/17/21 fluticasone 250 mcg-salmeterol 50 1 inh inhalation BID #60 ea 02/25/22 mcg/dose blistr powdr for inhalation (Advair Diskus) albuterol sulfate 90 mcg/actuation 1 inh inhalation Q4 -6H PRN 03/01/22 breath activated powder shortness of breath or wheez ing #1 inhaler,sensor ea allopurinol 100 mg tablet 100 mg PO DAILY 30 days #30 tabs 12/09/22 losartan 25 mg tablet 25 mg PO DAILY 90 days #90 t abs 12/16/22 ibuprofen 600 mg tablet 600 mg PO Q8H PRN pain #30 t abs 02/17/23 acetaminophen 500 mg tablet 1,000 mg (2 x 500 mg) PO Q ID PRN 04/14/23 pain #30 tabs citalopram 20 mg tablet 20 mg PO DAILY 90 days #90 t abs 05/28/23 hydroxyzine pamoate 25 mg capsule 25 mg PO DAILY #90 c aps 07/18/23 amlodipine 10 mg tablet 10 mg PO DAILY #90 tabs 07/24 06/13 naproxen 500 mg tablet 500 mg PO BID PRN pain 10 da ys #20 04/09/25 tabs prednisone 20 mg tablet 40 mg (2 x 20 mg) PO DAILY 5 days 04/09/25 #10 tabs Allergies Allergy/AdvReac Type Severity Reaction Status Date / Time tramadol AdvReac Severe severe Verified 07/18/25 11:46 stomach pain Review of Systems 2 Constitutional: Constitutional: Reports as per HPI Eyes: Eyes: Reports as per HPI ENT: Reports as per HPI Cardiovascular: Cardiovascular: Reports as per HPI Respiratory: Respiratory: Reports as per HPI Gastrointestinal: Gastrointestinal: Reports as per HPI Genitourinary: Genitourinary: Reports as per HPI Musculoskeletal: Musculoskeletal: Reports as per HPI Integumentary/Breasts: Skin/Breast: Reports as per HPI Neurologic: Reports as per HPI Psychiatric: Psychiatric: Reports as per HPI Endocrine: Endocrine: Reports as per HPI Hematologic/Lymphatic: Hematologic/Lymphatic: Reports as per HPI Allergic/Immunologic: Allergic/Immunologic: Reports as per HPI PMFSH Past Medical History Attestation statement: The following information was validated with the patient. Source: old records reviewed and nursing notes reviewed Medical History Acute knee pain Purpura Elevated liver enzymes Gout Asthma PTSD (post-traumatic stress disorder) Mild depression Anxiety HTN (hypertension) Surgical History Hx of hernia repair History of surgery Family History Family History Father Diabetes mellitus HTN (hypertension) Mother HTN (hypertension) Anxiety Sister HTN (hypertension) Brother Sleep apnea Maternal Grandmother History of heart attack Breast cancer Brain aneurysm Maternal Grandfather No problems noted. Paternal Grandfather No problems noted. Paternal Grandmother Diabetes mellitus CVD (cardiovascular disease) Other Mental health disorder Social History Social History Are you a primary care support representative to a significant other at home: No Do you presently have visiting nurse or other home services: No Alcohol intake: current Alcohol intake frequency: a few times a week Alcohol type: beer Patient Tobacco Use Status: Never used Tobacco e-Cigarette/Vaping Use: Never Used Second Hand Smoke Exposure: No Advance Directives: No Advance Directives Information Provided: Yes Do you have a plan to hurt others: No Plan service: No Cognitive needs: No Hearing needs: No Vision needs: Yes (Glasses) Physical Exam ED Vital Signs: Vital Signs - 24 hr 07/18/25 11:43 07/18/25 16:56 07/18/25 18:36 Temperature 98.4 F 98.1 F 98.4 F Pulse Rate 90 71 74 Respiratory Rate 18 16 19 Blood Pressure 155/105 H 151/101 H 145/102 H Pulse Oximetry 98 98 99 Oxygen Delivery Method Room Air Room Air Room Air 07/18/25 18:42 Temperature 98.4 F Pulse Rate 74 Respiratory Rate 19 Blood Pressure 145/102 H Pulse Oximetry 99 Oxygen Delivery Method Room Air BMI result Body Mass Index 29.4 Const General: cooperative, no acute distress, alert and awake Nutritional Appearance: well nourished Orientation/consciousness: patient oriented x3 HENMT Head: Yes normal to inspection and Yes atraumatic Ears: hearing grossly normal bilaterally and external ears normal General nose exam: Normal external nose present, no nasal discharge noted and no epistaxis Face and sinus: Yes normal facial exam, No abrasion and No laceration Mouth: Normal oral and palatal mucosa present, no drooling and no muffled voice Eyes Other: minimal swelling present to the left lower eye lid Conjunctivae: conjunctivae normal Pupils: Equal, round and reactive pupils present EOM: EOMs intact bilaterally Neck Neck: Yes normal visual inspection and Yes full ROM Resp Effort & Inspection: normal respiratory effort and able to speak in complete sentences Neuro General: patient oriented x3, moves all extremities and CN's II-XI intact bilaterally Cranial nerves: Yes Equal, round and reactive pupils present Cognition (Neuro): normal cognition Extrem General: Yes normal to inspection, Yes full ROM and Yes capillary refill normal Psych Appearance: grossly normal Mental Status: mental status grossly normal Affect: normal affect Attitude: cooperative Thought process: Normal thought process present Thought content: Normal thought content present Insight: Good insight present (Psych) Course Course Course Narrative: This is an RME: Additional HPI, ROS, PE not included below will be deferred to primary provider. RME assessment and note performed by: Courtney Gutierrez PA-C This is a 75-jlzm-ofh-male, with a hx of HTN, anxiety, and asthma, who presents to the ER with a complaint of facial swelling and chest tightness s/p being stung by a bee at 09:30AM this morning. Lungs CTAB. Bee sting noted to left forehead with mild surrounding edema noted. Reporting constant chest tightness since the sting. Oral pharynx widely patent. No difficulty swallowing. Plan: Labs, EKG due to chest tightness and hx of htn. Medications Administered Discontinued Medications Generic Name Dose Route Start Last Admin Trade Name Asad PRN Reason Stop Dose Admin Methylprednisolone Sodium Succinate 60 mg 07/18/25 18:03 07/18/25 18:37 Methylprednisolone Sod Succ 125 Mg/2 Ml Vial IM 07/18/25 18:04 60 mg ONCE ONE Administration Medical Decision Making Medical Decision Making MDM Narrative: Patient is a 45 year old assigned male at with a history of asthma, anxiety, HTN, and gout presenting to the emergency department today with left lower eye lid swelling and chest tightness. Patient's physical exam was as noted in the physical exam portion of this note. Patient's clinical presentation is most consistent with localized swelling secondary to an insect sting. Patient's blood work was unremarkable. Patient's EKG was unremarkable. I explained my physical exam findings as well as all test results to the patient. I answered all questions asked by the patient. Patient was given IM Solu-medrol while in the department. I stressed the importance of the patient taking his medication as directed (either prescribed or as the over the counter packaging recommends). I stressed the importance of the patient following up with his primary care provider. I stressed the importance of the patient returning to the emergency department immediately if his symptoms were to worsen or if he were to develop any dizziness, shortness of breath, difficulty breathing, chest pain, blurry vision, loss of vision, nausea, vomiting, abdominal pain, fever, chills, back pain, or any other complaints. Patient verbalized agreement and understanding with this treatment plan and discharge. Differential Diagnosis Differential Diagnoses: The differential diagnosis associated with the presentation includes Bee sting Localized allergic reaction Atypical chest pain Anxiety Admission/Observation Consideration of admission/observation: Escalation of care including admission/observation considered Patient would have been admitted to the hospital had his work up had any findings where hospital admission was appropriate and his clinical presentation warranted hospital admission. Lab Data [facility] Lab Attestation statement: I reviewed the patient's lab results. My interpretation of these results are in the MDM Rationale portion of this note. 07/18/25 12:13 07/18/25 12:13 Labs: Lab Results 07/18/25 07/18/25 Range/Units 12:13 15:33 WBC 5.9 (4.8-10.8) X10*3/uL RBC 5.05 (4.60-5.80) X10*6/uL Hgb 14.9 (14.0-18.0) g/dl Hct 44.0 (42.0-52.0) % MCV 87.1 (80.0-98.0) fL MCH 29.5 (27.0-33.0) pg MCHC 33.9 (31.0-36.0) g/dl RDW 13.2 (11.0-16.0) % Plt Count 258 (160-400) X10*3/uL MPV 9.7 (9.4-12.4) fL Immature Gran % (Auto) 0.3 (0.0-0.4) % Neut % (Auto) 58.6 (45-73) % Lymph % (Auto) 24.0 (20-40) % [place] % (Auto) 11.5 H (2-11) % Eos % (Auto) 4.4 H (0-4) % Baso % (Auto) 1.2 (0-2) % Lymph # (Auto) 1.4 (1.2-4.9) X10*3/uL [place] # (Auto) 0.7 (0.1-1.2) X10*3/uL Eos # (Auto) 0.3 (0.0-0.4) X10*3/uL Baso # (Auto) 0.1 (0.0-0.2) X10*3/uL Abs Immat Gran (auto) 0.02 (0.00-0.03) X10*3/uL Absolute Neuts (auto) 3.5 (2.0-8.3) x10*3/uL Absolute Nucleated RBC 0.000 (0.0-0.012) X10*3/uL Nucleated RBC % (auto) 0.0 (0.0-0.2) /100WBC Sodium 139 (135-145) mmol/L Potassium 4.3 (3.3-5.1) mmol/L Chloride 104 (96-108) mmol/L Carbon Dioxide 28 (22-29) mmol/L Anion Gap 11 L (12-20) BUN 13 (9-16) mg/dL Creatinine 0.89 (0.5-1.4) mg/dL Estim Creat Clear Calc 118.8 Estimated GFR > 60 Random Glucose 115 (60-115) mg/dL Calcium 9.3 (8.4-10.2) mg/dL Total Bilirubin 0.5 (0.0-1.0) mg/dL AST 37 (5-37) U/L ALT 51 H (0-40) U/L Alkaline Phosphatase 88 (39-117) U/L Troponin I High Sens 2.9 3.4 (<3.5-35.0) ng/L Total Protein 7.3 (6.5-8.0) g/dL Albumin 4.9 (3.5-5.0) g/dL Independent Interpretation I performed an independent interpretation of an: EKG Interpretation: I independently interpreted this EKG and am in agreement with the below findings: Vent. Rate: 82 BPM Atrial Rate: 82 BPM P-R Int: 148 ms QRS Dur: 82 ms QT Int: 352 ms P-R-T Axes: 25 -32 6 degrees QTcB Int: 411 ms Normal sinus rhythm with sinus arrhythmia Left axis deviation When compared with ECG of 14-Nov-2023 05:53, No significant change was found Electronically Signed By: KURT WINSLOW Dictated By: Kurt Winslow MD Signed By: Electronically signed by Kurt Winslow MD 07/18/252042 Discharge Plan Discharge Clinical Impression: Bee sting, Atypical chest pain Patient Disposition: Home, Self-Care Instructions: Insect Bite or Sting (ED) Additional Instructions: Sleep at an upright angle to avoid additional swelling. IF you are prescribed home medications and/or you are taking over the counter medications at home - it is very important you continue to do so as prescribed / directed unless told otherwise. Follow up with your primary care provider. Return to the emergency department immediately if your symptoms worsen or if you develop any numbness, tingling, dizziness, shortness of breath, difficulty breathing, chest pain, blurry vision, loss of vision, nausea, vomiting, abdominal pain, fever, chills, back pain, or any other complaints. Please see the information below about our Patient Portal. If you are not yet enrolled in the [facility] Patient Portal, you will receive an enrollment email invitation following your visit to any [facility] setting. You may also self-enroll in the Patient Portal by visiting our website: [email or web address] The following information is required to access the Patient Portal: - Your [facility] Medical Record Number - Your personal home email address (must match what is in your electronic medical record, Registration staff can assist with this) - Name - Date of Capabilities of the Patient Portal: - Message some providers - View upcoming appointments - Access your health summary, medical history, and visit history - View current conditions and allergies - View procedure and lab results - View your medications, including guidelines, side effects, and precautions - Complete pre-appointment questionnaires requested by your provider - Ready summary reports of your office visits and procedures To access the Patient Portal Mobile [employer], follow these directions: - Search [employer] in the [employer] Store or [employer] Store - Download the [employer] - Search for [facility] - Enter your login/password Prescriptions: No Action atorvastatin 20 mg tablet 20 mg PO BEDTIME 90 Days Qty: 90 1RF fluticasone propion-salmeterol [Advair Diskus] 250-50 mcg/dose blister with device 1 inh inhalation BID Qty: 60 1RF albuterol sulfate 90 mcg/actuation aero powdr breath act w/sensor 1 inh inhalation Q4-6H PRN (Reason: shortness of breath or wheezing) Qty: 1 0RF allopurinol 100 mg tablet 100 mg PO DAILY 30 Days Qty: 30 2RF losartan 25 mg tablet 25 mg PO DAILY 90 Days Qty: 90 1RF citalopram 20 mg tablet 20 mg PO DAILY 90 Days Qty: 90 0RF Rx Instructions: Schedule next PCP appt for future refills hydroxyzine pamoate 25 mg capsule 25 mg PO DAILY Qty: 90 0RF Rx Instructions: Schedule next PCP appt for future refills amlodipine 10 mg tablet 10 mg PO DAILY Qty: 90 0RF Rx Instructions: Schedule next PCP appt for future refills ibuprofen 600 mg tablet 600 mg PO Q8H PRN (Reason: pain) Qty: 30 0RF prednisone 20 mg tablet 40 mg PO DAILY 5 Days Qty: 10 0RF naproxen 500 mg tablet 500 mg PO BID PRN (Reason: pain) 10 Days Qty: 20 0RF acetaminophen 500 mg tablet 1,000 mg PO QID PRN (Reason: pain) Qty: 30 0RF rosuvastatin 40 mg tablet 40 mg PO DAILY Referrals: Comfort Scanlon PA-C [Primary Care Provider, Internal Medicine] Interventions: ED Discharge Assessment Last Done: 07/18/25 18:42 Discharge Date/Time: 07/18/25 18:42 Print Language: Hebrew
--- NOTE | 2025-07-18 11:48 | ECG_ITS ---
Test Reason : tightness Blood Pressure : */* mmHG Vent. Rate : 82 BPM Atrial Rate : 82 BPM P-R Int : 148 ms QRS Dur : 82 ms QT Int : 352 ms P-R-T Axes : 25 -32 6 degrees QTcB Int : 411 ms Normal sinus rhythm with sinus arrhythmia Left axis deviation Abnormal ECG When compared with ECG of 14-Nov-2023 05:53, No significant change was found Referred By: Courtney Gutierrez Electronically Signed By: THAI WINSLOW
[2025-07-18 12:18] LABS: MANUAL DIFF FLAG NO
[2025-07-18 12:36] LABS: Alanine Aminotransferase 51 U/L (0-40); Albumin Level 4.9 g/dL (3.5-5.0); Alkaline Phosphatase 88 U/L (39-117); Anion Gap 11 (12-20); Aspartate Amino Transferase 37 U/L (5-37); Blood Urea Nitrogen 13 mg/dL (9-16); Calcium 9.3 mg/dL (8.4-10.2); Carbon Dioxide 28 mmol/L (22-29); Chloride 104 mmol/L (96-108); Creatinine Clr Calc Pharmacy 118.8; Estimated Glomerular Filt Rate > 60; Potassium 4.3 mmol/L (3.3-5.1); Sodium 139 mmol/L (135-145); Total Protein 7.3 g/dL (6.5-8.0)
[2025-07-18 12:37] LABS: Hematocrit 44.0 % (42.0-52.0); Hemoglobin 14.9 g/dl (14.0-18.0); Imm Gran Abs Auto 0.02 X10*3/uL (0.00-0.03); Imm Gran Pct Auto 0.3 % (0.0-0.4); Lymphocytes Absolute Auto 1.4 X10*3/uL (1.2-4.9); Mean Corpuscular HGB Conc 33.9 g/dl (31.0-36.0); Mean Corpuscular Hemoglobin 29.5 pg (27.0-33.0); Mean Corpuscular Volume 87.1 fL (80.0-98.0); NRBC Abs Auto 0.000 X10*3/uL (0.0-0.012); NRBC Pct Auto 0.0 /100WBC (0.0-0.2); Platelet Count 258 X10*3/uL (160-400); Red Blood Count 5.05 X10*6/uL (4.60-5.80); White Blood Count 5.9 X10*3/uL (4.8-10.8)
[2025-07-18 12:44] LABS: Troponin-I High Sensitivity 2.9 ng/L (<3.5-35.0)
[2025-07-18 16:05] LABS: Troponin-I High Sensitivity 3.4 ng/L (<3.5-35.0)
[2025-07-18 16:56] VITALS: BP 151/101; PULSE 71; RESP 16; TEMP 36.7; O2SAT 98
--- OUTSIDE RECORDS SUMMARY | 2025-07-18 17:04 | XMS_ITS | Encounter Summary ---
Author Organization [facility] Address [address] [place] [address] Care Team Providers Care Service Loss Control Consultant Name Role Phone Derick Arguello MD Primary Care Provider [phone] [facility], Pcp Primary Care Provider Agus Prince MD Primary Care Provider Unav ailable Encounter Details Date Type Department Care Team Description 12/20/2014 Pt. Non Urgent Medical Question Adult Medicine [address] [id number] Derick Arguello MD [address] [place] [address] [id number] Social History Tobacco Use Types Packs/Day Years Used Date Smoking Tobacco: Never Smokeless Tobacco: Never Alcohol Use Standard Drinks/Week Comments Yes 0 (1 standard drink = 0.6 oz pur e alcohol) occasional Sex Assigned at Date Recorded Not on file documented as of this encounter Progress Notes * Courtney Almonte M.A. - 12/21/2014 10:20 AM ESTFrom: Keith Cassidy Jr To: Derick Arguello MD Sent: 12/20/2014 9:12 PM EST Subject: medical release form I was wondering if you can mail me the medical release form so I can give it to [facility] so they can fax my medical file to you thank you. documented in this encounter Plan of Treatment Not on file documented as of this encounter Visit Diagnoses Not on filedocumented in this encounter Care Teams Service Loss Control Consultant Relationship Specialty Start Date End Date Derick Arguello MD [address] [place] [id number] PCP - General 07/02/08 10/20/15 [facility], Pcp [address] [place], [place] [id number] PCP - General Internal Medicine 10/24/15 Agus Mendoza MD [address] [place] [address] PCP - General Internal Medicine 10/21/15 10/23/15 documented as of this encounter
--- OUTSIDE RECORDS SUMMARY | 2025-07-18 17:04 | XMS_ITS | Encounter Summary ---
Author Organization [facility] Address [address] [place] [address] Care Team Providers Care Early Morning Babysitter Name Role Phone Community, Pcp Primary Care Provider Unavailabl e Encounter Details Date Type Department Care Team Description 08/30/2016 Release of Information Medical Records [address] [place] [id number] Abstract, Provider Social History Tobacco Use Types Packs/Day Years Used Date Smoking Tobacco: Never Smokeless Tobacco: Never Alcohol Use Standard Drinks/Week Comments Yes 0 (1 standard drink = 0.6 oz pur e alcohol) occasional Sex Assigned at Date Recorded Not on file documented as of this encounter Plan of Treatment Not on file documented as of this encounter Visit Diagnoses Not on filedocumented in this encounter Care Teams Early Morning Babysitter Relationship Specialty Start Date End Date Community, Pcp PCP - General Internal Medicine 10/24/15 documented as of this encounter
--- OUTSIDE RECORDS SUMMARY | 2025-07-18 17:04 | XMS_ITS | Encounter Summary ---
Author Organization [facility] Address [address] [place] [address] Care Team Providers Care Process Designer Name Role Phone Derick Arguello MD Primary Care Provider [phone] [facility], Pcp Primary Care Provider Agus Prince MD Primary Care Provider Unav ailable Encounter Details Date Type Department Care Team Description 11/11/2013 Sales Representative Door To Door Report Medical Records [address] [place] [address] Ashish Taylor Social History Tobacco Use Types Packs/Day Years [...] on filedocumented in this encounter Care Teams Process Designer Relationship Specialty Start Date End Date Derick Arguello MD [address] [place] [address]755 PCP - General 07/02/08 10/20/15 [place], Pcp [address] [place] [address] 10390 PCP - General Internal Medicine 10/24/15 Agus Mendoza MD [address] [place] [address]991 PCP - General Internal Medicine 10/21/15 10/23/15 documented as of this encounter
--- OUTSIDE RECORDS SUMMARY | 2025-07-18 17:04 | XMS_ITS | Clinical Summary ---
Author Organization [facility] it Address [address] [place] [address] Care Team Providers Care House Cleaner Name Role Phone Unavailable Primary Care Provider Unavailabl e Surgical History Surgery Date Site/Laterality Comments OTHER SURGICAL HISTORY PROCEDURE: [place] UNLISTED PROCEDURE LUNGS & PLEURA ESOPHAGOGASTRODUODENOSCOPY 10/04/09 PROCEDURE: [place] ESOPHAGOGASTRODUODENOSCOPY TRANSORAL DIAGNOSTIC; COMMENT: normal Medical History [...] Panel) 07/17/2024 Colorectal Cancer Screening: Colonoscopy 07/17/2024 HIV Screening 07/17/2024 Hepatitis C Screening 07/17/2024 Hypertension/CHF/CAD Annual BMP Blood Test 07/17/2024 Social Influencers of Health Screening 07/17/2024 COVID-19 Vaccine ( - season) 2024 Depression Screening 11/22/2024 Influenza Vaccine (#1) 2025 3, 09/22/2012, 09/24/2011, [...]
--- OUTSIDE RECORDS SUMMARY | 2025-07-18 17:04 | XMS_ITS | Encounter Summary ---
Author Organization [facility] Address [address] [facility] [address] Care Team Providers Care Wig Comber Name Role Phone Derick Arguello MD Primary Care Provider [phone] [facility], Pcp Primary Care Provider Agus Prince MD Primary Care Provider Unav ailable Encounter Details Date Type Department Care Team Description 11/01/2014 PIPELINER/MassPat Report Medical Records [address] [place] [address] Abstract, Provider Social History Tobacco Use Types [...] on filedocumented in this encounter Care Teams Wig Comber Relationship Specialty Start Date End Date Derick Arguello MD [address] [place] [address] PCP - General 07/02/08 10/20/15 [facility], Pcp [address] [place] [address] 29655 PCP - General Internal Medicine 10/24/15 Agus Mendoza MD [address] [place] [address] PCP - General Internal Medicine 10/21/15 10/23/15 documented as of this encounter
--- OUTSIDE RECORDS SUMMARY | 2025-07-18 17:04 | XMS_ITS | Encounter Summary ---
Author Organization [facility] Address [address] [place] [address] Care Team Providers Care Sleeve Presser Operator Name Role Phone Derick Arguello MD Primary Care Provider [phone] [facility], Pcp Primary Care Provider Agus Prince MD Primary Care Provider Unav ailable Reason for Visit * Reason Onset Date Comments anxiety 03/01/2015 Encounter Details Date Type Department Care Team Description 03/01/2015 Telephone Adult Medicine [address] [id number] Derick Arguello MD [address] [place] [address] [phone] anxiety Social History Tobacco Use Types Packs/Day Years Used Date Smoking Tobacco: Never Smokeless Tobacco: Never Alcohol Use Standard Drinks/Week Comments Yes 0 (1 standard drink = 0.6 oz pur e alcohol) occasional Sex Assigned at Date Recorded Not on file documented as of this encounter Miscellaneous Notes * Telephone Encounter - Courtney Almonte M.A. - 03/05/2015 8:38 AM EDT Patient notified. He will hold off on psychiatrist for now and see if the zoloft starts to work. FYI * Telephone Encounter - Derick Arguello MD - 03/04/2015 5:26 PM EDT Pt is already on ativan 1mg tid the only thing we can do is await the zoloft to be therapeutic the other option would be to refer him to a psychiatrist * Telephone Encounter - Komal Onofre L.P.N. - 03/01/2015 10:22 AM EDT Called the patient back. He states that the Zoloft is not helping. He is aware that Dr. Arguello told him it could take up a month to feel some relief but right now he c/o his insides just shaking. He iswondering if there is anything else you could give him. Please advise. thanks * Telephone Encounter - Gina Ravi - 03/01/2015 8:41 AM EDT Symptoms patient is presenting: anxiety, pt states he received a call from [employer] in reply to his my chart message concerning his anxiety How long has patient had these symptoms?: 2 weeks PCP: Derick Arguello Payor: [employer] [place] / Plan: HMO $20 [place] 1 / Product Type: HMO [id number] documented in this encounter Plan of Treatment Not on file documented as of this encounter Visit Diagnoses Not on filedocumented in this encounter Care Teams Sleeve Presser Operator Relationship Specialty Start Date End Date Derick Arguello MD [address] [place] [address] PCP - General 07/02/08 10/20/15 [facility], Pcp [address] [place] [address] 11062 PCP - General Internal Medicine 10/24/15 Agus Mendoza MD [address] [place] [address] 87970 PCP - General Internal Medicine 10/21/15 10/23/15 documented as of this encounter
--- OUTSIDE RECORDS SUMMARY | 2025-07-18 17:04 | XMS_ITS | Encounter Summary ---
Author Organization [facility] Address [address] [facility] [address] Care Team Providers Care Forensic Manager Name Role Phone Derick Arguello MD Primary Care Provider [phone] [facility], Pcp Primary Care Provider Agus Prince MD Primary Care Provider Unav ailable Encounter Details Date Type Department Care Team Description 11/15/2011 Night Triage Doc Medical Records [address] [place] [address] Abstract, Provider Social History Tobacco Use Types [...] on filedocumented in this encounter Care Teams Forensic Manager Relationship Specialty Start Date End Date Derick Arguello MD [address] [place] [address]68 PCP - General 07/02/08 10/20/15 Community, Pcp [address] [place] [address] 57646 PCP - General Internal Medicine 10/24/15 Agus Mendoza MD [address] [place] [address] 48[address] PCP - General Internal Medicine 10/21/15 10/23/15 documented as of this encounter
--- OUTSIDE RECORDS SUMMARY | 2025-07-18 17:04 | XMS_ITS | Encounter Summary ---
Author Organization [facility] Address [address] [place] [address] Care Team Providers Care Epidemiology Investigator Name Role Phone Derick Arguello MD Primary Care Provider [phone] [facility], Pcp Primary Care Provider Agus Prince MD Primary Care Provider Unav ailable Encounter Details Date Type Department Care Team Description 02/05/2015 Pt. Non Urgent Medical Question Adult Medicine [address] [phone] Derick Arguello MD [address] [place] [address] [phone] Social History Tobacco Use Types Packs/Day Years Used Date Smoking Tobacco: Never Smokeless Tobacco: Never Alcohol Use Standard Drinks/Week Comments Yes 0 (1 standard drink = 0.6 oz pur e alcohol) occasional Sex Assigned at Date Recorded Not on file documented as of this encounter Progress Notes * Courtney Almonte M.A. - 02/05/2015 9:28 AM EDTFrom: Keith Cassidy Jr To: Derick Arguello MD Sent: 02/05/2015 9:27 AM EDT Subject: Anxiety I just got a message saying my lorazepam is being denied what do I have to doTo get the medication accepted I can't be without that medication documented in this encounter Plan of Treatment Not on file documented as of this encounter Visit Diagnoses Not on filedocumented in this encounter Care Teams Epidemiology Investigator Relationship Specialty Start Date End Date Derick Arguello MD [address] [place] [address] PCP - General 07/02/08 10/20/15 [facility], [place] [address] PCP - General Internal Medicine 10/24/15 Agus Mendoza MD [address] [place] [address] PCP - General Internal Medicine 10/21/15 10/23/15 documented as of this encounter
[2025-07-18 18:36] VITALS: BP 145/102; PULSE 74; RESP 19; TEMP 36.9; O2SAT 99
[2025-07-18 18:42] VITALS: BP 145/102; PULSE 74; RESP 19; TEMP 36.9; O2SAT 99
== END 2025-07-18 18:42 | disposition home or self-care (01) ==
PROVIDERS: Physician Assistant Medical; Emergency Provider Emergency Medicine
DX: S00.262A Insect bite (nonvenomous) of left eyelid and periocular area, initial encounter (principal); W57.XXXA Bitten or stung by nonvenomous insect and other nonvenomous arthropods, initial encounter; Y93.9 Activity, unspecified; Y92.9 Unspecified place or not applicable; R07.9 Chest pain, unspecified; F41.9 Anxiety disorder, unspecified; I10 Essential (primary) hypertension; J45.909 Unspecified asthma, uncomplicated; M10.9 Gout, unspecified
CPT/HCPCS: 36415; 80053; 84484; 85025; 93005; 96372; 99284; J2919

== ENCOUNTER → 2025-07-18 11:48 | Outpatient (BNV) | payer BC, SELFPAY | PROVIDERS: Emergency Provider Emergency Medicine; Visit Provider Internal Medicine | DX: R94.31 Abnormal electrocardiogram [ECG] [EKG] (principal); R07.89 Other chest pain | CPT/HCPCS: 93010 ==

== ENCOUNTER 2025-09-20 13:48 | Outpatient (AMB) | payer OTHER, SELFPAY ==
--- NOTE | 2025-09-20 13:50 | A.OFFPC_ITS ---
Vital Signs 09/20/25 13:51 Height 5 ft 10 in Weight 207 lb 4 oz BMI 29.7 BP 130/82 Blood Pressure Location Lt brachial Position Sitting Pulse 81 Pulse Source Pulse Oximeter Temp 97.3 F Temp Source Temporal Artery Scan Pulse Oximetry (%) 98 Oxygen Delivery Method Room Air Intake Visit Reasons: Establish Care Intake Note: Patient is here to follow-up after a visit the emergency department at [facility] on 08/18/22 Postal Superintendent Required: No Carton Forming Machine Operator: Not Required per policy Accompanied by: Self / Same As Patient Allergies tramadol Adverse Reaction (Severe, Verified 09/20/25 13:51) severe stomach pain Medication List - Last Reconciled 09/20/25 by India Chang MD acetaminophen 1,000 mg (2 x 500 mg) PO QID PRN albuterol sulfate 90 mcg/actuation 1 inh inhalation Q4-6H PRN allopurinol 100 mg PO DAILY 30 days amlodipine 5 mg PO DAILY atorvastatin (Lipitor) 40 mg PO DAILY blood pressure monitor As directed citalopram 20 mg PO DAILY 90 days fluticasone propion-salmeterol 100-50 mcg/dose 1 inh inhalation BID hydroxyzine pamoate 25 mg PO DAILY losartan 50 mg PO BID Tobacco use date assessed: 09/20/25 Dental Screening Dental Screen Date: 09/20/25 Did you have a dental visit in the last 12 months?: No Did you have a dental problem in the last 6 months where you did not have access to dental care?: No Was dental information given to patient?: Patient has dentist HPI HPI Comments History of Present Illness Details Patient is a 45-year-old male with medical history significant for hypertension, hyperlipidemia, gout, asthma and anxiety presenting to [facility] care. He reports concerns regarding a recently discovered ascending aortic aneurysm. The aneurysm was identified during a CT exam performed in the emergency department at [facility], where he sought care following a fall resulting in a sixth rib fracture. The aneurysm was noted to be 4.3 cm in size. The patient's family history is relevant for brain aneurysms in his maternal grandmother. He denies any chest pain, palpitations, shortness of breath. He denies any tobacco use, drinks beer on weekends and occasionally uses THC- infused gummies to aid sleep. Hypertension: Controlled on losartan 50 mg b.i.d. and amlodipine 5 mg. Patient does not have blood pressure machine at home and does not measure blood pressure. Hyperlipidemia: On atorvastatin 40 mg Intermittent Asthma: Controlled on fluticasone/salmeterol inhaler b.i.d. Uses albuterol p.r.n., but has not needed it in several months. Anxiety: Stable on citalopram 20 mg daily, and uses hydroxyzine 25 mg daily as needed. Gout: On allopurinol 100 mg daily Surgical history: right inguinal hernia repair (04/2025) Family history notable for hypertension diabetes in parents. Brain aneurysm and heart attack in maternal grandmother. He works at [employer], reports he is up-to-date with his flu and COVID vaccines. [facility] Medical History Acute knee pain Purpura Elevated liver enzymes Gout Asthma PTSD (post-traumatic stress disorder) Mild depression Anxiety HTN (hypertension) Surgical History Hx of hernia repair History of surgery Family History Father Diabetes mellitus HTN (hypertension) Mother HTN (hypertension) Anxiety Sister HTN (hypertension) Brother Sleep apnea Maternal Grandmother History of heart attack Breast cancer Brain aneurysm Maternal Grandfather No problems noted. Paternal Grandfather No problems noted. Paternal Grandmother Diabetes mellitus CVD (cardiovascular disease) Other Mental health disorder Social History Are you a primary reproductive healthcare assistant to a significant other at home: No Do you presently have visiting nurse or other home services: No Alcohol intake: current Alcohol intake frequency: a few times a week Alcohol t ype: beer Patient Tobacco Use Status: Never used Tobacco Tobacco use type: Cigarette e-Cigarette/Vaping Use: Never Used Second Hand Smoke Exposure: No service: No Cognitive needs: No Hearing needs: No Vision needs: Yes (Glasses) Questionnaire PHQ-9 Over the last 2 weeks, how often have you been bothered by any of the following problems? 1. Little interest or pleasure in doing things: not at all 2. Feeling down, depressed, or hopeless: not at all 3. Trouble falling or staying asleep, or sleeping too much: several days 4. Feeling tired or having little energy: several days 5. Poor appetite or overeating: not at all 6. Feeling bad about yourself - or that you are a failure or have let yourself or your family down: not at all 7. Trouble concentrating on things, such as reading the newspaper or watching television: not at all 8. Moving or speaking so slowly that other people could have noticed. Or the opposite - being so fidgety or restless that you have been moving around a lot more than usual: not at all 9. Thoughts that you would be better off or of hurting yourself in some way: not at all Total score: 2 Depression Screening Interpretation: Negative Depression Screening Done: Yes Source: Developed by Drs. Bairon Alonso, Fauzia Campbell, Nnamdi Graves and colleagues, with an educational nettie from [employer]. Thrive Questionnaire Date Thrive assessed: 09/18/25 I am a: Patient What is your living situation today?: I have a steady place to live Within the past 12 months, did the food you bought not last and you didn't have the money to get more?: Often true Within the past 12 months, did you worry whether your food would run out before you got money to buy more?: Often true Do you have trouble paying for medicines?: No Do you have trouble getting transportation to medical appointments?: No Do you have trouble paying your heating and electricity bill?: Yes Do you have trouble taking care of your child, family member or friend?: No Do you have trouble with day-to-day activities such as bathing, preparing meals, shopping, managing finances, etc.?: No Are you currently unemployed and looking for a job?: No Are you interested in more education?: No Please select the resources that you would like help with: Food Currently or been in a relationship where the following occur: No concerns reported THRIVE Score: 3 AUDIT C Alcohol Use Questionnaire (AUDIT-C) 1. How often do you have a drink containing alcohol?: Monthly or less 2. How many drinks containing alcohol do you have on a typical day when you are drinking?: 3 or 4 3. How often do you have six or more drinks on one occasion?: Less than monthly Total Score: 3 CARLOS-7 AMB Questionnaire CARLOS-7 Date CARLOS - 7 assessed: 09/20/25 Feeling nervous, anxious, or on edge: 1 = Several days Not being able to stop or control worryin = Several days Worrying too much about different things: 1 = Several days Trouble relaxin = More than half the days Being so restless that it is hard to sit still: 1 = Several days Becoming easily annoyed or irritable: 0 = Not at all Feeling afraid as if something awful might happen: 0 = Not at all Total CARLOS-7 score (0-4 normal; 5-9 mild; 10-14 moderate; 15-21 severe): 6 Source: Developed by Drs. Bairon Alonso, Fauzia Campbell, Nnamdi Graves and colleagues, with an educational nettie from [employer]. Review of Systems Narrative As per HPI Physical exam (Primary Care) Vital Signs: Last Vital Signs Temp 97.3 F 09/20/25 13:51 Pulse 81 09/20/25 13:51 BP 130/82 09/20/25 13:51 Pulse Ox 98 09/20/25 13:51 Oxygen Delivery Method Room Air 09/20/25 13:51 General: Well-appearing, alert, oriented ?3, in no acute distress. Cardiovascular: RRR, S1-S2 appreciated, no murmurs, rubs or gallops. Respiratory: Lungs clear to auscultation bilaterally, no wheezes, rales or rhonchi. Abdomen: Soft, nontender, nondistended. Normoactive bowel sounds. Psychiatry: Normal mood and affect. Appropriate behavior, good eye contact. BMI result Body Mass Index 29.7 Tobacco/Smoking Status: Tobacco use Status Tobacco use date assessed 09/20/25 09/20/25 13:54 Patient Tobacco Use Status Never used Tobacco 09/20/25 13:51 Tobacco use type Cigarette 09/20/25 14:02 e-Cigarette/Vaping Use Never Used 09/20/25 13:51 PHQ-9: PHQ-9 Score PHQ-9: Total score 2 09/20/25 13:54 Depression Screening Interpretation: Negative Thrive Assessment: Date of Thrive Assessment Date Thrive assessed 09/18/25 09/20/25 13:51 Currently or been in a relationship where the following occur: No concerns reported Coding Level of Care Code New Pt Level 4 (34382) Diagnoses Establishing care with new doctor, encounter for Z76.89 Ascending aortic aneurysm I71.21 Primary hypertension I10 Hypertension type: primary hypertension Intermittent asthma without complication, unspecified asthma severity J45.20 Asthma severity: unspecified severity Asthma persistence: intermittent Asthma complication type: uncomplicated Dyslipidemia E78.5 Assessment & Plan Assessment & Plan (1) Establishing care with new doctor, encounter for: Code(s): Z76.89 - Persons encountering health services in other specified circumstances Plan: Patient presenting today to establish care. Follow up in 6 months for annual physical (2) Ascending aortic aneurysm: Code(s): I71.21 - Aneurysm of the ascending aorta, without rupture Category: Medical Plan: Patient was recently found to have a 4.3 cm ascending aortic aneurysm, that was incidentally identified during a CT exam performed in the emergency department at [facility] on 09/16/2025, where he sought care following a fall resulting in a sixth rib fracture. - will repeat CT scan in 6 months for surveillance (3) HTN (hypertension): Code(s): I10 - Essential (primary) hypertension Category: Medical Qualifiers: Hypertension type: primary hypertension Qualified Code(s): I10 - Essential (primary) hypertension Plan: Continue on losartan 50 mg b.i.d. and amlodipine 5 mg. Patient does not have blood pressure machine and does not measure BP at home. Maintain blood pressure below 130/80 (4) Asthma: Code(s): J45.909 - Unspecified asthma, uncomplicated Category: Medical Qualifiers: Asthma severity: unspecified severity Asthma persistence: intermittent Asthma complication type: uncomplicated Qualified Code(s): J45.20 - Mild intermittent asthma, uncomplicated Plan: Patient with known history of intermittent asthma, controlled on fluticasone/salmeterol inhaler b.i.d. Uses albuterol p.r.n., but has not needed it in several months. Needs refill for his inhaler, prescription sent (5) Dyslipidemia: Code(s): E78.5 - Hyperlipidemia, unspecified Category: Medical Plan: On atorvastatin 40 mg. Check lipid panel and CMP for history of transaminitis Orders: Orders Lipid Panel with Reflex Today E78.5 - Hyperlipidemia, unspecified CT angio chest aorta 6 Months I71.21 - Aneurysm of the ascending aorta, without rupture Comprehensive Met. Panel Today E78.5 - Hyperlipidemia, unspecified Medications: New blood pressure monitor As directed 1 ea 0RF fluticasone propion-salmeterol 100-50 mcg/dose 1 inh inhalation BID 60 ea 0RF asthma Discontinued fluticasone propion-salmeterol 250-50 mcg/dose (Advair Diskus) Discontinued Reason: Patient no longer taking 1 inh inhalation BID 60 ea 1RF
[2025-09-20 13:51] VITALS: BP 130/82; PULSE 81; TEMP 36.3; O2SAT 98; BMI 29.7
--- OUTSIDE RECORDS SUMMARY | 2025-09-20 16:48 | XMS_ITS | Clinical Summary ---
Author Organization [facility] it Address [address] [place] [address] Care Team Providers Care Separations Scientist Name Role Phone Unavailable Primary Care Provider Unavailabl e Surgical History Surgery Date Site/Laterality Comments OTHER SURGICAL HISTORY PROCEDURE: [place] UNLISTED PROCEDURE LUNGS & PLEURA ESOPHAGOGASTRODUODENOSCOPY 10/04/09 PROCEDURE: [place] ESOPHAGOGASTRODUODENOSCOPY TRANSORAL DIAGNOSTIC; COMMENT: normal Medical History [...] Health Maintenance Due Date Last Done Comments Colorectal Cancer Screening: Colonoscopy 1979 DTaP,Tdap,and Td Vaccines (1 - Tdap) 1998 Hepatitis B Vaccines (1 of 3 - 19+ 3-dose series) 1998 Pneumococcal Vaccine: Pediatrics (0 to 5 Years) and At-Risk Patients (6 to 49 Years) (1 of 2 - PCV) 1998 Cholesterol Screening (Lipid Panel) 07/17/2024 HIV Screening 07/17/2024 Hepatitis C Screening 07/17/2024 Hypertension/CHF/CAD Annual BMP Blood Test 07/17/2024 Social Influencers of Health Screening 07/17/2024 Depression Screening 11/22/2024 COVID-19 Vaccine ( - season) 2025 Influenza Vaccine (#1) 2025 3, 09/22/2012, 09/24/2011, Additional history exists RSV Immunization Adult Patients (1 - 1-dose 75+ series) 2054 HIB Vaccines Aged Out No longer eligi [...]
== END 2025-09-20 14:48 | disposition home or self-care (01) ==
LOC: HO.HMCH 13:49
PROVIDERS: Visit Provider Student in an Organized Health Care Education/Training Program
DX: I71.21 Aneurysm of the ascending aorta, without rupture (principal); I10 Essential (primary) hypertension; J45.20 Mild intermittent asthma, uncomplicated; E78.5 Hyperlipidemia, unspecified